=== PATIENT | female | born 1965 | race Caucasian/White ===

== ENCOUNTER 2021-09-10 11:00 | Outpatient (RCR) | payer OTHER, SELFPAY ==
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
--- NOTE | 2021-09-01 09:59 | PCPTNOTE ---
Patient called & cancelled scheduled appointment this date due to not feeling well.
--- NOTE | 2021-09-03 11:26 | PCPTNOTE ---
Patient called & cancelled scheduled appointment this date due to still being sick.
--- NOTE | 2021-09-08 09:56 | PCPTNOTE ---
Patient called & cancelled scheduled appointment this date due to having a flare-up with fibromyalgia.
--- NOTE | 2021-09-17 10:59 | PCPTNOTE ---
Patient did not show up for scheduled appointment this date; left voicemail for next appointment with stating if she needs to cancel or no shows she will be discharged.
--- NOTE | 2021-09-28 10:48 | PCPTNOTE ---
Attending Provider: Drew Chadwick, DIE CASTING MACHINE SETTER Patient:Irma Pantoja Date of :1965 PHYSICAL THERAPY DISCHARGE SUMMARY. Patient has no call no showed the last 2 appointments including today's progress report and has cancelled 3 appointments prior, therefore she will be discharged at this time. Called and left voicemail notifying patient of discharge, she will need a new order if therapy is to be continued. Patient?s initial visit was on 08/17/2021 12:30 and she had a total of 2 visits. Thank you for referring this patient to [facility]. Please review, sign, date and return this discharge summary NANCY. I have been updated about the patient's current status and I agree with discharge from the above service at this time. Referring Physician Date
== END 2021-09-29 11:15 | disposition home or self-care (01) ==
LOC: ANHHIPT 11:00
PROVIDERS: Visit Provider Nurse Practitioner
DX: M54.41 Lumbago with sciatica, right side (principal)
CPT/HCPCS: 97014; 97110; 97112; 97161; 99199; G0283

== ENCOUNTER 2023-10-14 06:58 | Outpatient (CLI) | payer OTHER, SELFPAY ==
--- NOTE | 2023-10-12 15:11 | PC.NURSE ---
Pre Radiology instructions Report to the outpatient emilio marcella on date _[id number]_ at time _0700_ for procedure Time: _0900_ YOU MAY BE MONITORED AT HOSPITAL FOR UP TO 4 HOURS AFTER YOUR PROCEDURE. A visitor will be allowed to accompany the patient into the hospital. You and your visitor will be asked to self-screen and do not enter if you have any COVID symptoms. A mask is OPTIONAL within the hospital. Patients are to have no food or drink 6 hours prior to procedure time Driving will be restricted after the procedure, you must have a person to drive you home. Labs will be drawn in preop area and once reviewed, you will be taken to radiology area for procedure. When the procedure is completed, you will be taken to outpatient where you will be monitored for several hours. You may have one visitor in this area. Other than holding anti-coagulants, patient may take other medication(s) as scheduled. Prior to your appointment date patients are instructed to hold anti-coagulants after discussing with ordering provider to stop. If unable to discontinue anti-coagulants please notify radiologist. ? No aspirin or warfarin (Coumadin) for 7 days prior to the procedure. ? No clopidogrel (Plavix), ticagrelor (Brilinta), prasugrel (Effient) or dabigatran (Pradaxa) for 5 days prior to the procedure. ? No rivaroxaban (Xarelto), apixaban (Eliquis), dipyridamole (Aggrenox or Persantine) or cilostazol (Pletal) for 2 days prior to the procedure. Medications to discontinue per physician: Date to take last dose: Please leave all valuables, including medications, at home the day of procedure. The hospital will not accept responsibility for valuables. Wear comfortable, loose fitting clothing.? Follow any additional instructions given to you from ordering provider. Telephone instructions given to __Terra___and asked if any additional questions and then verbalized understanding. Patient advised to call scheduling provider office or registration scheduling [phone] if any additional questions.
[2023-10-12 15:14] VITALS: BMI 33.3
[2023-10-14] VITALS (8 sets, daily range): BP systolic 108–138; BP diastolic 60–87; PULSE 60–71; RESP 14–20; TEMP 36.7; O2SAT 99–100
--- NOTE | ~2023-10-14 | XR_ITS ---
EXAMINATION: XR lumbar puncture diagnostic DATE: 10/14/2023 09:53 INDICATION: Anesthesia of skin. Suspicion for multiple sclerosis. TECHNIQUE: The procedure including the risks and benefits was discussed with the patient. Risks discu ssed included spinal headache, cerebrospinal fluid leak, bleeding, and infection. The patient underst ood the risks and agreed to proceed. A timeout was performed to verify the patient's name, date of , and procedure to be performed. The skin overlying the L4-L5 level was prepped and draped in usual sterile fashion. Subcutaneous 1% lidocaine was used for local anesthesia. A 22 gauge spinal n eedle was advanced under fluoroscopic guidance. The needle was removed and the entry site was cleaned and dressed. There were no immediate complications. A total of 1 fluoroscopic image(s) were obtaine d. The amount of fluoroscopy time used during this procedure was 0.2 minutes. Total DAP was 1.283 Gyc m^2 The patient was taken to the nursing area for observation. FINDINGS: Real-time fluoroscopy demonstrates the needle at the L4-L5 level. Opening pressure was 17 c m water. (Normal range is variably defined as 6-20 cm water and up to 25 cm water in obese patients. Pressure >25 cm water is one of the modified Dandy criteria for idiopathic intracranial hypertension) . 13 mL of clear, colorless fluid was collected in 4 tubes. IMPRESSION: 1. Successful fluoro-guided lumbar puncture. Reviewed, dictated and finalized at location A.
[2023-10-14 07:46] LABS: Mean Platelet Volume 9.8 fl (7.4-10.4); Platelet Count Result 284 k/mm3 (150-375)
[2023-10-14 07:57] LABS: Prothrombin Time 13.8 Seconds (11.1-14.7)
[2023-10-14 10:43] LABS: Glucose CSF 62 mg/dL (40-70); Total Protein CSF 44 mg/dL (12-60)
[2023-10-14 11:56] LABS: Appearance CSF Clear (Clear); CSF source CSF; Color CSF Colorless (Colorless); Nucleated Cell CSF 3 /uL (0-5); Red Blood Cell CSF 1 (0-2)
[2023-10-14 11:57] LABS: Lymphocytes CSF 80 % (40-80); Monocytes CSF 20 % (15-45)
[2023-11-08 08:35] LABS: Myelin Basic Protein, CSF <2.0
[2023-11-08 08:37] LABS: Oligoclonal Bands (IgG), CSF Absent
[2023-11-08 08:39] LABS: IgG Index, CSF 0.52
[2023-11-08 08:40] LABS: Albumin, CSF 15.8; IgG, CSF 2.9; Immunoglobulin G, Serum 1510
[2023-11-08 08:41] LABS: Albumin, Serum 4.3
[2023-11-08 08:42] LABS: Synthesis Rate IgG, CSF -3.9
[2023-11-08 08:44] LABS: CSFMOG Ab with Reflex to Titer Negative
== END 2023-10-14 11:40 | disposition home or self-care (01) ==
PROVIDERS: PCP Nurse Practitioner; Referring Provider Psychiatry & Neurology Neurology; Visit Provider Radiology Diagnostic Radiology
DX: R20.0 Anesthesia of skin (principal)
CPT/HCPCS: 36415; 62328; 82040; 82042; 82784; 82945; 83873; 83916; 84157; 85049; 85610; 86052; 86362; 87070; 89051

== ENCOUNTER 2024-03-28 16:06 | Outpatient (CLI) | payer OTHER, SELFPAY ==
--- NOTE | ~2024-03-28 | US_ITS ---
EXAMINATION: US thyroid DATE: 03/28/2024 16:56 INDICATION: Thyroid nodule. TECHNIQUE: Multiple ultrasound images of the thyroid were obtained. COMPARISON: None. FINDINGS: The right thyroid lobe measures 5.4 x 1.6 x 1.7 cm. The left thyroid lobe measures 4.9 x 2.5 x 2.5 c m. In the right thyroid lobe, there is a 5 mm solid, very hypoechoic, wider than tall nodule with sm ooth margin without echogenic foci (TI-RADS TR4). In the left thyroid lobe, there is a 3.8 cm solid, isoechoic, wider than tall nodule with smooth margin without echogenic foci (TR3). IMPRESSION: 1. Thyroid nodules. Ultrasound-guided fine-needle aspiration of the 3.8 cm left thyroid nodule is rec ommended. Reviewed, dictated and finalized at location A. LCHAIR VAN OPERATOR FIRST RESPONDER IMPRESSION: 1. Thyroid nodules. Ultrasound-guided fine-needle aspiration of the 3.8 cm left thyroid nodule is recommended.
--- OUTSIDE RECORDS SUMMARY | 2024-03-28 16:10 | XMS_ITS ---
Author Organization [facility] Address [address] [place] [address] Care Team Providers Care Nitro Man Name Role Phone Drew Chadwick Primary Care Provider Vicenta Oneill [phone] REASON FOR VISIT r/s from 12/06 Social History Sex Assigned At : Social History Observation Description Sex Assigned At Female Encounters Encounter Location Date Provider Diagnosis [address] [place] [address] 12/14/2023 Vicenta Oneill Plan Of Treatment No Information Progress Notes * Arpit PANTOJAB:1965 ( 58 yo F)Acc No.[id number]:12/14/2023 UNLOCKED PROGRESS NOTE Progress Notes Patient: Irma VALLEJO Provider: Khloe Oneill APRN :1965 A ge:58 Y S ex:Female Date:12/14/2023 Address:[address] [place], [place] [phone] Pcp:Drew Chadwick Subjective: * Chief Complaints: * 1 . R/s from 12/06. * Medical History: Objective: * Vitals: Assessment: Plan: * Treatment: * * Electronic signature of Merced Oneill [id number] on 03/28/2024 at 04:10 PM PROCESS SAFETY SPECIALIST Sign off status: Pending * Provider: Khloe Oneill APRN Date: 1 02/12/2023 Generated for Printi ng/Faxing/eTransmitting on: 0 03/28/2024 04:10 PM PROCESS SAFETY SPECIALIST
--- OUTSIDE RECORDS SUMMARY | 2024-03-28 16:11 | XMS_ITS | Clinical Summary ---
Author Organization [facility] Address [address] [place] [address] Care Team Providers Care Tail Worker Name Role Phone Daina Lehman APRN-FINANCIAL RESERVE CLERK Primary Care Provi bernardo Bimal Lind MD Unavailable [phone] Source Comments [facility] [employer],non-owned Affiliates and Associated Physician Practices is amultiple site organization consisting of ambulatory clinics and hospital sitesin [place], [place], [place] and [place]. This disclosure is being madepursuant to the Care Everywhere program and may not contain all information available regarding this patient. Last updated 17.[facility] Allergies Active Allergy Reactions Criticality Noted Date Comments Molds & Smuts Rhinitis,Other Medium 02/08/2018 Medications * Be aware that medications may not be up to date on this document. Alwaysverify current medications with the patient. Medication Sig Dispensed Refills Start Date End Date Status folic acid (FOLVITE) 1 MG tablet Take 1 mg by mouth once daily 11/18/2019 Active traMADol (ULTRAM) 50 MG tablet Take 50-100 mg by mouth every 6 hours as needed 11/14/2019 Active meloxicam (MOBIC) 15 MG tabletIndications:Art hralgia, unspecified joint Take 1 (one) tablet by mouth once daily 30 tablet 2 02/20/2020 Active gabapentin (NEURONTIN) 400 MG capsule Take 800 mg by mouth 4 times daily Active furosemide (LASIX) 20 MG tablet Take 20 mg by mouth once daily Active dapsone (ACZONE) 5 % gelIndications:Acne vulgaris Apply to entire affected face daily 60 g 3 04/15/2021 Active tretinoin (RETIN-A) 0.025 % creamIndications:Acne vulgaris Pea sized amount to entire face at night. 30 days supply. 45 g 3 04/15/2021 Active mupirocin (BACTROBAN) 2 % ointmentIndications:S taphylococcal infection Apply to affected area on nose daily 30 g 04/15/2021 Active spironolactone (ALDACTONE) 100 MG tabletIndications:Acn e vulgaris Take 1 (one) tablet by mouth once daily 30 tablet 1 04/15/2021 Active Active Problems Problem Noted Date Diagnosed Date Acne vulgaris 04/15/2021 Staphylococcal infection 04/15/2021 High risk medications (not anticoagulants) long- term use 04/15/2021 Dizziness and giddiness 12/31/2012 Immunizations Name Administration Dates Next Due INFLUENZA VACCINE 12/18/2020 Family History Medical History Relation Name Comments Cancer - Other Father Hodgkin's lymphoma Mother Relation Name Status Comments Brother Alive Father Mother Alive Sister 1 Alive Sister 2 Sister Other Hidradenitis kwon ppurativa Social History Tobacco Use Types Packs/Day Years Used Date Smoking Tobacco: Every Day Cigarettes 1 30 Smokeless Tobacco: Never Alcohol Use Standard Drinks/Week Comments Not Currently 0 (1 standard drink = 0.6 oz pur e alcohol) Occasionally Sex and Gender Information Value Date Recorded Sex Assigned at Not on file Gender Identity Not on file Sexual Orientation Not on file Last Filed Vital Signs Vital Sign Reading Time Taken Comments Blood Pressure 108/78 12/25/2019 8:34 AM ASSOCIATE PROFESSOR OF PHYSICS Pulse 80 12/25/2019 8:34 AM ASSOCIATE PROFESSOR OF PHYSICS Temperature 37.2 C (99 F) 12/25/2019 8:34 AM ASSOCIATE PROFESSOR OF PHYSICS Respiratory Rate 22 12/31/2012 1:01 PM ASSOCIATE PROFESSOR OF PHYSICS Oxygen Saturation 100% 04/18/2019 12:57 PM CDT Inhaled Oxygen Concentration - - Weight 106.1 kg (234 lb) 12/25/2019 8:34 AM ASSOCIATE PROFESSOR OF PHYSICS Height 165.1 cm (5' 5 ) 12/25/2019 8:34 AM ASSOCIATE PROFESSOR OF PHYSICS Body Mass Index 38.94 12/25/2019 8:34 AM ASSOCIATE PROFESSOR OF PHYSICS Plan of Treatment Health Maintenance Due Date Last Done Comments COLOGUARD (AGES 45-75) - COL ON CA SCREENING 1965 COLON MONITORING 1965 COLONOSCOPY - COLON CA SCREENING 1967 CT COLONOGRAPHY - COLON CA SCREENING 1965 Colorectal Cancer Screening 1965 FIT - COLON CA SCREENING 1965 FLEX SIG - COLON CA SCREENING 1965 LIPID TESTING 1965 MAMMOGRAM 1965 HIV SCREENING 10/05/1982 HEPATITIS C SCREENING 10/01/1985 DTAP/TDAP/TD VACCINES (1 - Tdap) 10/05/1986 HEPATITIS B VACCINE (1 of 3 - 19+ 3-dose series) 10/05/1986 PNEUMOCOCCAL VACCINE 50+ (1 of 2 - PCV) 10/05/1986 PNEUMOCOCCAL VACCINE (1 of 2 - PCV) 10/05/1986 ZOSTER VACCINE (1 of 2) 10/05/2017 COVID-19 VACCINE (1 - 2023-2 5 season) 2023 INFLUENZA VACCINE (#1) 2023 12/18/2020 DEPRESSION SCREENING 02/08/2024 PAP SMEAR 11/20/2024 11/20/2021, 11/20/2021, 11/20/2021 HIB VACCINE Aged Out No longer eligi ble based on patient's age to complete this topic HPV VACCINE Aged Out No longer eligi ble based on patient's age to complete this topic MENINGOCOCCAL (Group B) VACCINE Aged Out No longer eligible b ased on patient's age to complete this topic MENINGOCOCCAL VACCINE Aged Out No yolanda liil eligible based on patient's age to complete this topic Care Teams Tail Worker Relationship Specialty Start Date End Date Daina Lehman APRN-FINANCIAL RESERVE CLERK PCP - General 04/18/19 Bimal Lind MD Internal Medicine 04/18/19
--- OUTSIDE RECORDS SUMMARY | 2024-03-28 16:11 | XMS_ITS | Clinical Summary ---
Author Organization [facility] Address [address] [place] [address] Care Team Providers Care Almond Blancher Hand Name Role Phone Unavailable Primary Care Provider Unavailabl e Allergies Active Allergy Reactions Criticality Noted Date Comments Molds & Smuts Sneezing Medium 02/08/2018 Medications predniSONE 10 mg tabletIndication s:Arthralgia of both knees,Myalgia,Po lyarthralgia 4 tablets x 4 days; 3 tab x 3 days; 2 tab x 2 days; 1 tab x 1 day 30 tablet 11/14/2019 Active traMADol 50 MG tabletIndication s:Chronic Pain Take 1-2 tablets (50-100 mg total) by mouth every 6 (six) hours as needed for Pain. Indications: Chronic Pain 45 tablet 11/14/2019 Active cyclobenzaprine 10 MG tabletIndication s:Chronic neck and back pain Take 1 tablet (10 mg total) by mouth 3 (three) times daily as needed. 270 tablet 1 11/18/2019 Active folic acid 1 MG tabletIndication s:Folic acid deficiency Take 1 tablet (1 mg total) by mouth daily. 30 tablet 4 11/18/2019 Active famotidine 20 MG tabletIndication s:Gastroesophage al reflux disease with esophagitis without hemorrhage Take 1 tablet (20 mg total) by mouth 2 (two) times daily. 180 tablet 1 11/18/2019 Active citalopram 20 MG tabletIndication s:Hot flash, menopausal Take 1.5 tablets (30 mg total) by mouth daily. 135 tablet 1 11/18/2019 Active ferrous sulfate EC 324 (65 Fe) MG tabletIndication s:Iron deficiency anemia, unspecified iron deficiency anemia type Take 1 tablet (324 mg total) by mouth daily with breakfast. 30 tablet 4 11/18/2019 Active Active Problems Problem Noted Date Diagnosed Date Lymphedema of both lower extremities 08/17/2018 Assessment & Plan (08/17/2018 8:51 AM CDT): See dependent edema, above. Referral for lymphedema therapy through occupational therapy. Folic acid deficiency 08/17/2018 Assessment & Plan (08/17/2018 8:50 AM CDT): Chronic deficiency, renew folic acid today. Generalized osteoarthritis of multiple sites 12/2018 Assessment & Plan (08/17/2018 8:49 AM CDT): Continue meloxicam for treatment, monitor for response. Dependent edema 07/14/2018 Assessment & Plan (08/17/2018 8:51 AM CDT): Uncertain etiology, may be related to underlying autoimmune disease. Obtain basic metabolic panel for ongoing diuretic use and increased dosing. Check echocardiogram to rule out significant diastolic heart failure. Encouraged use of compression stockings for symptom control. Positive GREGORIA (antinuclear antibody) 06/06/2018 Clubbing of fingers 04/24/2018 Assessment & Plan (04/24/2018 7:08 PM CDT): Patient with heavy chronic nicotine use. Denies any respiratory issues at this time. Consider possible referral to pulmonology, CT scan of the chest at follow-up. Gastroesophageal reflux disease 02/11/2018 Assessment & Plan (08/17/2018 8:46 AM CDT): Reasonable control of symptoms on current dosing of ranitidine. No change to treatment. Assessment & Plan (04/24/2018 7:06 PM CDT): Patient reports stability on her current dosing of ranitidine, without any breakthrough symptoms. No change to present treatment. Left knee pain 08/05/2017 Swelling of joint, knee, left 08/05/2017 BMI 32.0-32.9,adult 08/01/2017 Medication management 08/01/2017 Assessment & Plan (04/24/2018 7:09 PM CDT): Routine lab work obtained nearly 3 months ago. No indications for additional labs other than those noted above. Polyarthralgia 05/20/2017 Overview (02/08/2018): Transitioned From: Arthritis Assessment & Plan (08/17/2018 8:45 AM CDT): Positive GREGORIA, rheumatology referral pending. Assessment & Plan (04/24/2018 7:06 PM CDT): Migratory arthralgias, with possibility of autoimmune disease. Will obtain radiographs of the elbow specifically, she is tender presently in that area. It is symmetric, possibly synovial in nature. Recheck TSH, with reflex, CMP, hepatitis titers, sedimentation rate and C-reactive protein for additional evaluation. If these are negative, consider referral to rheumatology for additional evaluation. Certainly differential diagnosis includes fibromyalgia. Bilateral hand pain 04/19/2017 Lamin's nodes 04/19/2017 Chronic neck and back pain 04/19/2017 Assessment & Plan (08/17/2018 8:45 AM CDT): Stable, in need of medication renewal. Continue current treatment. Assessment & Plan (04/24/2018 7:04 PM CDT): Patient reports worsening symptoms, particularly to the back. She is currently on 900 mg of gabapentin 3 times daily, as well as meloxicam and cyclobenzaprine. Both of these are half maximal doses. I have offered to increase her doses for both these if she gets improved relief. Consider possibility for referral to physical therapy for additional management options. Handout provided for sacroiliitis as well. Enthesopathy of multiple sites 04/19/2017 Assessment & Plan (04/24/2018 7:07 PM CDT): See polyarthralgia, above. Nicotine dependence 04/19/2017 Restless legs syndrome 04/19/2017 Spina bifida ([facility]) 04/19/2017 Resolved Problems Problem Noted Date Diagnosed Date Resolved Date Wears glasses 04/19/2017 10/19/2019 Family History Medical History Relation Comments Cancer Father bone cancer Cancer Mother non Hodgkins Lym phoma Thyroid Mother Cancer Paternal Grandfather skin cancer Relation Status Comments Father Mother Alive Paternal Grandfather Social History Tobacco Use Types Packs/Day Years Used Date Smoking Tobacco: Every Day Cigarettes Smokeless Tobacco: Never Tobacco Cessation:Ready to Q uit: Yes Alcohol Use Standard Drinks/Week Comments No 0 (1 standard drink = 0.6 oz pur e alcohol) AUDIT-C Answer Date Recorded Frequency of Alcohol Consumption Never 02/08/2018 Average Number of Drinks Not on file 019 Frequency of Binge Drinking Not on file 03/2018 PHQ-2 Answer Date Recorded PHQ-2 Score 6 01/16/2019 Education Answer Date Recorded What is the highest level of school you have completed or the highest degree you have received? Associate degree: academic program 02/08/2018 Comments No Sex and Gender Information Value Date Recorded Sex Assigned at Female 12/27/2018 1:33 PM COTTON WEIGHER Legal Sex Female 9:23 PM CDT Gender Identity Female 12/27/2018 1:33 PM COTTON WEIGHER Sexual Orientation Straight 12/27/2018 1: 33 PM COTTON WEIGHER Occupation Industry Job Start Date Job End Date Not on file Not on file Not on file Not on file Last Filed Vital Signs Vital Sign Reading Time Taken Comments Blood Pressure 98/60 11/14/2019 12:42 PM CDT Pulse 85 11/14/2019 12:42 PM CDT Temperature 36.4 C (97.5 F) 11/14/2019 12:42 PM CDT Respiratory Rate 20 11/14/2019 12:4 2 PM CDT Oxygen Saturation 97% 11/14/2019 12: 42 PM CDT Inhaled Oxygen Concentration - - Weight 108.2 kg (238 lb 9.6 oz) 020 12:42 PM CDT Height 167.6 cm (5' 6 ) 11/14/2019 12:4 2 PM CDT Body Mass Index 38.51 11/14/2019 12:42 PM CDT Plan of Treatment Health Maintenance Due Date Last Done Comments Cervical Cancer Screening Pa p Smear (Age 30 to 64) Every 3 Years 1967 Colorectal Cancer Screening Colonoscopy (10 Years) 1967 Annual Physical 10/05/1970 Pneumococcal Vaccine: Pediatrics (0 to 5 Years) and At-Risk Patients (6 to 64 Years) (1 of 2 - PCV) 10/05/1973 DTaP, Tdap and Td Vaccines ( 1 - Tdap) 10/05/1986 Hepatitis B Vaccines (1 of 3 - 19+ 3-dose series) 10/05/1986 Cervical Cancer Screening Pa p with HPV Testing (Age 30 to 64) Every 5 Years 10/05/1997 Cervical Cancer Screening wi th HPV 10/05/1997 Zoster Vaccines (1 of 2) 10/05/2017 Mammogram Screening 12/07/2020 12/07/2018, 03/14/2018, 03/14/2018 COVID-19 Vaccine (1 - 2023-2 5 season) 2023 Influenza Adult (#1) 2023 Hepatitis C Completed 04/24/2018, 04/24/2018 Meningococcal B Vaccine Aged Out No l onger eligible based on patient's age to complete this topic Meningococcal Vaccine Aged Out No yolanda lili eligible based on patient's age to complete this topic RSV Immunizations Under 20 Months Aged Out No longer eligible b ased on patient's age to complete this topic Procedures Procedure Name Priority Date/Time Associated Diagnosis Comments MG DIAG W BRAYDEN BILAT DIGI Routine 12/07/2018 2:10 PM CDT Abnormal ultrasound of breast HEPATITIS A,B,& C Routine 04/24/2018 3:1 9 PM CDT from Last 3 Months or Most Recently Relevant to Health Maintenance Results * MG DIAG W BRAYDEN BILAT DIGI (12/07/2018 2:10 PM CDT) Anatomical Region Laterality Modality Breast Bilateral Mammography, Rad iographic Imaging 12/07/2018 3:21 PM CDT Impressions 12/07/2018 6:32 PM CDT IMPRESSION: 1. Probably benign findings in both breasts. Recommend bilateral diagnostic mammogram and ultrasound for continued surveillance in 6 months. I discussed the findings and recommendations with the patient following the sonogram. 2. BI-RADS Category 3 - probably benign findings, but short interval follow-up is recommended. Recommend 6 month follow up. 3. TISSUE TYPE: Category B - There are areas of scattered fibroglandular density. MQSA BI-RADS Categories: Category 0 - needs additional imaging evaluation. Category 1 - negative. Category 2 - benign findings. Category 3 - probably benign findings, but short interval follow-up is recommended. Category 4 - suspicious abnormality and biopsy should be considered though the lesion may well be benign. Category 5 - highly suggestive of malignancy and appropriate action should be taken. A) A negative report should not delay a biopsy if a dominant or clinically suspicious mass is present. B) Adenosis and dense breasts may obscure an underlying neoplasm. C) Study interpreted with computer aided detection. Interpreted By: Isiah Nathan, 12/07/2018 3:21 PM Narrative 12/07/2018 6:32 PM CDT IMAGING STUDIES: MG POSADATani W BRAYDEN FERRERA DIGI DATE: 12/07/2018 1:32 PM HISTORY: 6 month follow up abnormal mammogram and ultrasound from 03/14/18 53-year-old female returns for recommended bilateral diagnostic mammogram and ultrasound for continued surveillance. COMPARISON STUDIES: Baseline screening mammogram on 03/14/2018 with subsequent diagnostic bilateral breast ultrasound on 03/17/2018. DISCUSSION: Digital diagnostic bilateral mammogram with CAD. Bilateral CC, MLO, and ML views. 2-D imaging and 3-D tomography. Scattered fibroglandular tissue bilaterally. The right breast central density approximately 6 cm from the nipple on the CC view is less conspicuous on the current study. The right breast upper outer quadrant ovoid focal asymmetry on the MLO view is also less conspicuous and there is no discrete mass evident on the tomographic images. The asymmetric density in the left breast just lateral to the nipple line on 03/14/2018 study CC tomographic image 28 of 69 is approximately half the volume on current CC tomographic image 31 of 73. The asymmetric density in the lower medial left breast as depicted on screening study CC tomographic image 10 of 69 is not clearly identified on the current study and is either fibroglandular superimposition or has resolved in the interval. Bilateral breast ultrasound performed in conjunction with this study. No significant change in the sonographically identified probable complex cysts other than interval resolution of the smallest cyst in the left breast since 03/17/2018. us Jude Higgins MD MAMMO Final Res ult * HEPATITIS A,B,& C (04/24/2018 3:19 PM CDT) HEPATITIS B SURFACE AG NON-REACTI VE NON-REACTI VE 04/25/2018 12:51 AM CDT [facility] HEP B CORE TOTAL AB NON-REACTI VE NON-REACTI VE 04/25/2018 12:51 AM CDT [facility] HEP B SURFACE AB NON-REACTI VE 04/25/2018 7:24 AM CDT [facility] HAV IGM NON-REACTI VE NON-REACTI VE 04/25/2018 12:51 AM CDT [facility] HEPATITIS C AB NON-REACTI VE NON-REACTI VE 04/25/2018 12:51 AM CDT [facility] 04/24/2018 3:19 PM CDT 04/24/2018 6:14 PM CDT us Generic Conversion Md [facility] Final R esult [facility] [address] [place] [address], from Last 3 Months or Most Recently Relevant to Health Maintenance Insurance Member Subscriber Plan / Payer (Ef fective 2018-Present) Name:Irma Pantoja Relation to Subscriber:Self Name:Irma Pantoja Payer ID:[id number] (NAIC) Group ID:Not on file Type:Not on file Address: [address] [address] [place] Member Subscriber Plan / Payer (Ef fective 2018-Present) Name:Kit Luis Asirisha Mracos Relation to Subscriber:Self Name:Luis A Pantojasirisha Marcos Payer ID:[id number] (NAIC) Group ID:Not on file Type:Not on file Address: [address] [address]
--- OUTSIDE RECORDS SUMMARY | 2024-03-28 16:11 | XMS_ITS | Encounter Summary ---
Author Organization [facility] Address [address] [place] [id number] Care Team Providers Care V Belt Skiver Name Role Phone Jude Higgins MD Primary Care Provider [phone] Daina Lehman NP Primary Care Provider Unav ailable Encounter Details Date Type Department Care Team (Late st Contact Info) Description 05/18/2017 Abstract [facility] CONVERSION [address] [place] [address] , Generic Conversion, Social History Tobacco Use Types Packs/Day Years Used Date Smoking Tobacco: Never Assessed Comments Unknown Sex and Gender Information Value Date Recorded Sex Assigned at Female 12/27/2018 1:33 PM CASSANDRA DEVELOPER Legal Sex Female 9:23 PM CDT Gender Identity Female 12/27/2018 1:33 PM CASSANDRA DEVELOPER Sexual Orientation Straight 12/27/2018 1: 33 PM CASSANDRA DEVELOPER documented as of this encounter Plan of Treatment Not on file documented as of this encounter Visit Diagnoses Not on filedocumented in this encounter Care Teams V Belt Skiver Relationship Specialty Start Date End Date Jude Higgins MD PCP - General INTERNAL MEDICINE 02/08/18 11/13/19 Daina Lehman NP PCP - General NURSE PRACTITIONER 11/14/19 03/08/21 documented as of this encounter
--- OUTSIDE RECORDS SUMMARY | 2024-03-28 16:11 | XMS_ITS | Data Portability ---
Author Organization [facility] [place] Address [address] [place] [address] Care Team Providers Care Dredgemaster Name Role Phone BRUNILDA EDWARDS Primary Care Provider [phone] Assessment Encounter Date Assessment Date Assessment LastModified by Organization Details LastModified Time 10/09/2021 10/09/2021 Send T-therapy to [facility] night[facility] with 4wks med check [email or web address] Not available 10/09/2021 13:01:01 11/20/2021 11/20/2021 Annual gynecological exam performed. Patient will come back in a year unless there are new symptoms. Not available 11/20/2021 15:21:47 06/21/2023 06/21/2023 Annual gynecological exam performed. Patient will come back in a year unless there are new symptoms. [email or web address] Not available 06/21/2023 15:25:10 Plan of Treatment Reminders Order Date Submit Date Provider Last Modified By Organization Details Last Modified Time Details Appointments None recorded. Lab testosteron e, total, serum 2021 [facility] (Lab), [address], [place], [address], 07:33:56 vitamin D, 25-hydroxy, total, serum 2021 [facility] (Lab), [address] , [place], [address], 07:33:57 hormone panel, serum or plasma 2021 [facility] (Lab), [address], [place], [address], 2 07:33:57 CBC w/ auto diff 2021 022 [facility] (Lab), [address], [place], [address], 2 07:33:55 CMP, serum or plasma 2021 022 [facility] (Lab), [address], [place], [address], 07:33:56 Referral None recorded. Procedures None recorded. Surgeries None recorded. Imaging MAMMO, screening, bilateral [email or web address] [place] [address] (Central Scheduling), [address] [place], [address], 4 10:24:09 Medication Orders estradiol 1 mg tablet 2023 024 [email or web address] 1 [facility]armacy #[id number], [address] [place], [address], 4 19:56:55 progesteron e micronized 100 mg capsule 2023 024 [facility]/Pharmacy #[id number], [address] [place], [address], 4 14:58:20 estradiol 1 mg tablet 2023 024 [facility] #[id number], [address] [place], [address], 4 15:44:06 Prometrium 100 mg capsule 2023 024 [facility]/Ph[facility] #[id number], [address] [place], [address], 4 15:44:06 Prometrium 100 mg capsule 2021 022 [facility]/Pharmacy #[id number], [address] [place], [address], 15:48:49 Patient TargetsNo targets recorded. Patient InstructionsNo instructions recorded. Reason for Referral None Reported. Results Created Date Observation Date Name Description Value Unit Range Abnormal Flag Note LastModifiedBy Organization Detail LastModifiedTime 10/10/19 22 10/09/2021 CBC W/DIF F WBC 11.5 10'3/ uL 3.6-10 .2 high Not Available [facility] [address] [place], [address], 10/10/2021 07:33:55 10/10/19 22 10/09/2021 CBC W/DIF F RBC 4.77 10'6/ uL (based on docume nted legal sex) 4.10-5 .30 Not Available [facility] [address] [place], [address], 10/10/2021 07:33:55 10/10/19 22 10/09/2021 CBC W/DIF F HGB 12.5 g/dL (based on docume nted legal sex) 11.9-1 5.8 Not Available [facility] [address] [place], [address], 10/10/2021 07:33:55 10/10/19 22 10/09/2021 CBC W/DIF F HCT 42.2 % (based on docume nted legal sex) 37.4-4 8.3 Not Available [facility] [address] [place], [address], 10/10/2021 07:33:55 10/10/19 22 10/09/2021 CBC W/DIF F MCV 88.5 fL 82.0-9 9.0 Not Available [facility] [address] [place], [place] [address], [place], [address], 10/10/2021 07:33:55 10/10/19 22 10/09/2021 CBC W/DIF F MCH 26.2 pg 27.0-3 3.0 low Not Available [facility] [place], [address], 10/10/2021 07:33:55 10/10/19 22 10/09/2021 CBC W/DIF F MCHC 29.6 g/dL 32.0-3 6.0 low Not Available [facility] [place], [address], 10/10/2021 07:33:55 10/10/19 22 10/09/2021 CBC W/DIF F RDW 15.9 % 11.0-1 5.0 high Not Available [facility] [place], [address], 10/10/2021 07:33:55 10/10/19 22 10/09/2021 CBC W/DIF F plt 287 10'3/ uL 150-45 0 Not Available [facility] [place], [address], 10/10/2021 07:33:55 10/10/19 22 10/09/2021 CBC W/DIF F MPV 11.9 fL 9.8-12 .7 Not Available [facility] [place], [address], 10/10/2021 07:33:55 10/10/19 22 10/09/2021 CBC W/DIF F NRBC's 0.0 % 0 Not Available [facility] [place], [address], 10/10/2021 07:33:55 10/10/19 22 10/09/2021 CBC W/DIF F absolute NRBCs 0.0 10'3/ uL 0 Not Available [facility] [address] [place], [place] [address], [place], [address], 10/10/2021 07:33:55 10/10/19 22 10/09/2021 CBC W/DIF F neutrophils 59.2 % 37.0-7 2.0 Not Available [facility] [address] [place], [place] [address], [place], [address], 10/10/2021 07:33:55 10/10/19 22 10/09/2021 CBC W/DIF F lymphocytes 29.9 % 16.0-4 8.0 Not Available [facility] [address] [place] [address], [address], 10/10/2021 07:33:55 10/10/19 22 10/09/2021 CBC W/DIF F monocytes 8.3 % 4.0-14 .0 Not Available [facility] [address] [place] [address], [address], 10/10/2021 07:33:55 10/10/19 22 10/09/2021 CBC W/DIF F eosinophils 1.2 % 0.0-9. 0 Not Available [facility] [address] [place] [address], [address], 10/10/2021 07:33:55 10/10/19 22 10/09/2021 CBC W/DIF F basophils 0.8 % 0.0-2. 0 Not Available [facility] [address] [place], [place] [address], [place], [address], 10/10/2021 07:33:55 10/10/19 22 10/09/2021 CBC W/DIF F immature granulocytes 0.6 % no define d refere nce range Not Available [facility] [address] [place], [place] [address], [address], 10/10/2021 07:33:55 10/10/19 22 10/09/2021 CBC W/DIF F absolute neutrophils 6.8 10'3/ uL 1.1-6. 0 high Not Available [facility] [place], [address], 10/10/2021 07:33:55 10/10/19 22 10/09/2021 CBC W/DIF F absolute lymphocytes 3.4 10'3/ uL 0.7-3. 4 Not Available [facility] [place], [address], 10/10/2021 07:33:55 10/10/19 22 10/09/2021 CBC W/DIF F absolute monocytes 1.0 10'3/ uL 0.3-1. 0 Not Available [facility] [address] [place], [place] [address], [place], [address], 10/10/2021 07:33:55 10/10/19 22 10/09/2021 CBC W/DIF F absolute eosinophils 0.1 10'3/ uL 0.0-0. 6 Not Available [facility] [address] [place], [place] [address], [place], [address], 10/10/2021 07:33:55 10/10/19 22 10/09/2021 CBC W/DIF F absolute basophils 0.1 10'3/ uL 0.0-0. 1 Not Available [facility] [place], [address], 10/10/2021 07:33:55 10/10/19 22 10/09/2021 CBC W/DIF F absolute immature granulocytes 0.1 10'3/ uL 0.00-0 .10 022 5:35 AM: P indic ates parti al resul ts on a panel have been relea sed. Addit ional resul ts will ana cristina w. 022 5:35 AM: This resul t has been final verif ied. No addit ional or samaniego ed resul ts are expec luis alfredo. Not Available [facility] [address] [place] [address], [address], 10/10/2021 07:33:55 10/10/19 22 10/09/2021 CMP WITH BUN/C REAT RATIO sodium 141 mmol/ L 133-14 6 Not Available [facility] [address] [place] [address], [address], 10/10/2021 07:33:56 10/10/19 22 10/09/2021 CMP WITH BUN/C REAT RATIO potassium 4.5 mmol/ L 3.5-5. 1 Not Available [facility] [address] [place] [address], [address], 10/10/2021 07:33:56 10/10/19 22 10/09/2021 CMP WITH BUN/C REAT RATIO chloride 102 mmol/ L 98-107 Not Available [facility] [address] [place] [address], [address], 10/10/2021 07:33:56 10/10/19 22 10/09/2021 CMP WITH BUN/C REAT RATIO carbon dioxide 29 mmol/ L 21-31 Not Available [facility] [address] [place] [address], [address], 10/10/2021 07:33:56 10/10/19 22 10/09/2021 CMP WITH BUN/C REAT RATIO anion gap 10 mmol/ L 4-13 Not Available [facility] [address] [place] [address], [address], 10/10/2021 07:33:56 10/10/19 22 10/09/2021 CMP WITH BUN/C REAT RATIO blood urea nitrogen 8 mg/dL 7-25 Not Available [facility] [place], [address], 10/10/2021 07:33:56 10/10/19 22 10/09/2021 CMP WITH BUN/C REAT RATIO creatinine 0.86 mg/dL 0.60-1 .30 Not Available [facility] [place], [address], 10/10/2021 07:33:56 10/10/19 22 10/09/2021 CMP WITH BUN/C REAT RATIO egfrcr (CKD-epi 2020) 80 mL/mi n/1.7 3_m2 >=60 Not Available [facility] [place], [address], 10/10/2021 07:33:56 10/10/19 22 10/09/2021 CMP WITH BUN/C REAT RATIO BUN/creatini ne ratio 9.3 . 10.0-2 2.0 low Not Available [facility] [place], [address], 10/10/2021 07:33:56 10/10/19 22 10/09/2021 CMP WITH BUN/C REAT RATIO calcium 9.1 mg/dL 8.3-10 .5 Not Available [facility] [place], [address], 10/10/2021 07:33:56 10/10/19 22 10/09/2021 CMP WITH BUN/C REAT RATIO glucose 76 mg/dL 70-100 Not Available [facility] [place], [address], 10/10/2021 07:33:56 10/10/19 22 10/09/2021 CMP WITH BUN/C REAT RATIO protein, total 6.9 g/dL 6.4-8. 3 Not Available [facility] [address] [place], [place] [address], [place], [address], 10/10/2021 07:33:56 10/10/19 22 10/09/2021 CMP WITH BUN/C REAT RATIO albumin 3.6 g/dL 3.5-5. 0 Not Available [facility] [address] [place], [place] [address], [place], [address], 10/10/2021 07:33:56 10/10/19 22 10/09/2021 CMP WITH BUN/C REAT RATIO ALT 8 units /L 9-43 low Not Available [facility] [address] [place] [address], [address], 10/10/2021 07:33:56 10/10/19 22 10/09/2021 CMP WITH BUN/C REAT RATIO alkaline phosphatase 104 units /L 34-104 Not Available [facility] [address] [place] [address], [address], 10/10/2021 07:33:56 10/10/19 22 10/09/2021 CMP WITH BUN/C REAT RATIO AST 16 units /L 13-39 Not Available [facility] [address] [place] [address], [address], 10/10/2021 07:33:56 10/10/19 22 10/09/2021 CMP WITH BUN/C REAT RATIO bilirubin, total 0.3 mg/dL 0.2-1. 2 Not Available [facility] [address] [place], [place] [address], [place], [address], 10/10/2021 07:33:56 10/10/19 22 10/09/2021 TESTO STERO NE, TOTAL testosterone , total 92 NG/dL 0-100 Not Available [facility] Disease [address] [place] [address], [address], 10/10/2021 07:33:56 10/10/19 22 10/09/2021 FSH, LH, ESTRA DIOL estradiol 10.4 pg/mL This assay was perfo rmed using [employer] n reage nts and test kits. Value s obtai pierre with other assay metho ds or kits canno t be used inter [facility] . Femal e Estra diol Range s: Folli cular phase 12.4- 233 pg/mL Ovula tion phase 41.0- 398 pg/mL Lutea l phase 22.3- 341 pg/mL Postm enopa usal< 5-138 pg/mL Healt hy Pregn ant Women 1st Trime ster1 54-32 43 pg/mL 2nd Trime ster1 561-2 1280 pg/mL 3rd Trime ster8 525-> 53596 pg/mL Not Available [facility] Disease [address] [place] [address], [address], 10/10/2021 07:33:57 10/10/19 22 10/09/2021 FSH, LH, ESTRA DIOL FSH 51.7 mIU/m L This assay was perfo rmed using [employer] reage nts and test kits. Value s obtai pierre with other assay metho ds or kits canno t be used inter [facility] . Femal es Folli cular : 3.5-1 2.5 mIU/m L Ovula tion: 4.7-2 1.5 mIU/m L Lutea l: 1.7-7 .7 mIU/m L Postm enopa use: 25.8- 134.8 mIU/m L Not Available [facility] [address] [place] [address], [address], 10/10/2021 07:33:57 10/10/19 22 10/09/2021 FSH, LH, ESTRA DIOL LH 33.5 mIU/m L This assay was perfo rmed using [employer] reage nts and test kits. Value s obtai pierre with other assay metho ds or kits canno t be used inter [facility] . Femal es Mid-F ollic ular: 2.4-1 2.6 mIU/m L Mid-C ycle: 14.0- 95.6 mIU/m L Mid-L uteal : 1.0-1 1.4 mIU/m L Postm enopa use: 7.7-5 8.5 mIU/m L Not Available [facility] [address] [place], [address], 10/10/2021 07:33:57 10/10/19 22 10/09/2021 VITAM IN D, 25-OH (TOTA L D2/D3 ) vitamin D, 25-hydroxy, total 9.5 NG/mL 30.0-1 00.0 low [place] of Defic iency : <20 ng/mL [place] stive of Insuf ficie ncy: 20-29 ng/mL [place] stive of Suffi cienc y: 30-10 0 ng/mL Sugge stive of Toxic ity: >150 ng/mL Not Available [facility] [address] [place], [address], 10/10/2021 07:33:57 11/21/19 22 11/20/2021 IMAGE GUIDE D PAP AND HPV REGAR DLESS image guided Pap, HPV regardless of Pap result SEE RESULT S BELOW CASE REPOR T: Cytol ogy Gynec ologi minor Repor t Case: [id number] Autho marce caceres Provi bernardo: Genaro Goldstein Colle 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 Elect denise buenrostro d by Radhika Shafer ica on 11/26 at 9:53 AM ----- ----- ----- ----- ----- ----- ----- ----- ----- ----- ----- ----- ----- ----- ----- ----- ----- ---- HPV RESUL TS: HPV mRNA E6/E7 : No HPV mRNA Detec luis alfredo NOTE: This high risk HPV mRNA assay detec ts fourt een high- risk HPV types (16, 18, 31, 33, 35, 39, 45, 51, 52, 56, 58, 59, 66, 68) witho ut diffe renti ation . COMME NT: Note: This speci men was revie wed by a Cytot echno logis t and/o r Patho logis t (as indic ated in this repor t) after evalu ation using the Thinp rep Imagi ng Syste m. CLINI MINOR INFOR MATIO N: Menst rual Statu s: LMP (if appli cable ): Clini minor Histo ry/Pr eviou s Pap: Type of Neopl harjeet (if appli cable ): Signi fican t Clini minor Findi ngs: Other Histo ry: Hormo cory (if appli cable ): PAP EDUCA PHUC L NOTE: The Pap Test is a scree lisa test with an inher ent false negat lluvia rate. Liqui d-bas ed sampl ing may decre ase, but will not elimi johnson, false negat lluvia resul ts. A negat lluvia resul t does not precl ude the prese nce and/o r devel opmen t of disea se, since the prese nce of abnor mal cells in the sampl e depen ds on the locat ion of the lesio n and sampl ing techn ique. Ashlee nued regul ar scree lisa is the best metho d of cance r preve ntion . If repor luis alfredo cytol ogic findi ng do not corre late with physi minor and/o r histo rical findi ngs, wilmar arenas tigat ion is recom davon d, as clini evan nguyen nted. Not Available [facility] [address] [place] [address], [address], 11/26/2021 10:56:00 11/21/19 22 11/20/2021 TRICH OMONA S VAGIN ORIANA (RRNA ) trichomonas vaginalis ribosomal RNA (rrna) NEGATI VE negati ve Not Available [facility] [address] [place] [address], [address], 11/26/2021 10:56:01 11/21/19 22 11/20/2021 CT/GC (ELVIS) , THINP REP VIAL chlamydia trachomatis, PCR NEGATI VE negati ve Not Available [facility] [address] [place] [address], [address], 11/26/2021 10:56:01 11/21/19 22 11/20/2021 CT/GC (ELVIS) , THINP REP VIAL neisseria gonorrhoeae, PCR NEGATI VE negati ve Not Available [facility] [address] [place] [address], [address], 11/26/2021 10:56:01 06/21/19 24 06/21/2023 IMAGE GUIDE D PAP AND HPV REGAR DLESS image guided Pap, HPV regardless of Pap result SEE RESULT S BELOW CASE REPOR T: Cytol ogy Gynec ologi minor Repor t Case: [id number] Autho marce caceres Provi bernardo: Genaro Goldstein Colle 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 ----- ----- ----- ----- ----- ----- ----- ----- ----- ----- ----- ----- ----- ----- ----- ----- ----- ---- FINAL DIAGN OSIS: Negat lluvia for Intra epith elial Mayra paul or Tonia salas ([facility]) . Elect denise meade porter d by Rory [place], CT on 2023 at 10:32 AM ----- ----- ----- ----- ----- ----- ----- ----- ----- ----- ----- ----- ----- ----- ----- ----- ----- ---- HPV RESUL TS: HPV mRNA E6/E7 : No HPV mRNA Detec luis alfredo NOTE: This high risk HPV mRNA assay detec ts fourt een high- risk HPV types (16, 18, 31, 33, 35, 39, 45, 51, 52, 56, 58, 59, 66, 68) witho ut diffe renti ation . COMME NT: This speci men was revie wed by a Cytot echno logis t and/o r Patho logis t (as indic ated in this repor t) after evalu ation using the Thinp rep Imagi ng Syste m. CLINI MINOR INFOR MATIO N: Menst rual Statu s: LMP (if appli cable ): Clini minor Histo ry/Pr eviou s Pap: Type of Neopl harjeet (if appli cable ): Signi priyanka t Clini minor Findi ngs: Other Histo ry: Hormo cory (if appli cable ): PAP EDUCA PHUC L NOTE: The Pap Test is a scree lisa test with an inher ent false negat lluvia rate. Liqui d-bas ed sampl ing may decre ase, but will not elimi johnson, false negat lluvia resul ts. A negat lluvia resul t does not precl ude the prese nce and/o r devel opmen t of disea se, since the prese nce of abnor mal cells in the sampl e depen ds on the locat ion of the lesio n and sampl ing techn ique. Ashlee nued regul ar scree lisa is the best metho d of cance r preve ntion . If repor luis alfredo cytol ogic findi ng do not corre late with physi minor and/o r histo rical findi ngs, furth er inves tigat ion is recom davon d, as clini evan nguyen nted. Not Available [facility] (Lab) [address], [place], [address], 06/27/2023 11:36:58 Result Notes None recorded. Procedures Surgical History Date Name Laterality Status Provider Name and Address Organization Details Recorded Time 4 Date of Last Pap Smear completed Missy Franklin [facility] 07/19/2023 14:47:05 9 Date of Last Mammogram completed [facility] 10/09/2021 12:37:44 3 Endometrial Ablation completed [facility] 10/09/2021 12:39:45 Imaging Results None recorded. Procedure Notes None recorded. Medical Equipment None Reported. Allergies No known drug allergies Medications Name Sig Start Date Stop Date Status Note LastModified by Organization Details LastModified Time furosemide 40 mg tablet TAKE 1 TABLET BY MOUTH EVERY DAY 10/09 completed Not Available Not Available Not Available valacyclovi r 1 gram tablet TAKE 1 TABLET BY MOUTH TWICE A DAY FOR 10 DAYS 11/20 completed Not Available Not Available Not Available prednisone 20 mg tablet TAKE 1 TABLET EVERY DAY FOR 10 DAYS THEN 1 TABLET EVERY OTHER DAY FOR 8 DAYS active Not Available Not Available No t Available citalopram 20 mg tablet TAKE 1 TABLET BY MOUTH EVERY DAY 11/20 completed Not Available Not Available Not Available famotidine 20 mg tablet TAKE 1 TABLET BY MOUTH TWICE A DAY active Not Available Not Available No t Available estradiol 1 mg tablet take 1 tablet daily active Not Available Not Available No t Available gabapentin 800 mg tablet TAKE ONE TABLET BY MOUTH FOUR TIMES A DAY active Not Available Not Available No t Available famotidine 20 mg (Dis) tablet 10/09 completed Not Available Not Available Not Available nicotine 21 mg/24 hr daily transdermal patch APPLY 1 PATCH TO SKIN TRANSDERM ALLY ONCE A DAY 06/20 completed Not Available Not Available Not Available ergocalcife rol (vitamin D2) 1,250 mcg (50,000 unit) capsule TAKE 1 CAPSULE BY MOUTH ONE TIME PER WEEK FOR 90 DAYS active Not Available Not Available No t Available fluticasone propionate 50 mcg/actuati on nasal spray,suspe nsion SPRAY 1 SPRAY INTO EACH NOSTRIL EVERY DAY FOR 30 DAYS 06/20 completed Not Available Not Available Not Available progesteron e micronized 100 mg capsule take 1 capsule daily active Not Available Not Available No t Available Testim 50 mg/5 gram (1 %) transdermal gel Apply two drops to each inner thigh area daily washing hands post-appl ication to avoid residual spead of medicatio n. 06/20 completed Not Available Not Available Not Available duloxetine 30 mg capsule,del ayed release TAKE 1 CAPSULE BY MOUTH TWICE A DAY active Not Available Not Available No t Available duloxetine 60 mg capsule,del ayed release 60 mg every day by oral route. 2022 active Not Available Not Available Not Avai lable Vitals Date Recorded Body height Body mass index (BMI) Body weight Systolic blood pressure Diastolic blood pressure Provider Name and Address Organization Details Last Updated DateTime 10/09/2021 164.47 cm 36.4 kg/m2 46342.54 g 112 mm[Hg] 74 mm[Hg] Lupe Jones [facility] 2 12:37:32 Date Recorded Body height Body mass index (BMI) Body weight Provider Name and Address Organization Details Last Updated DateTime 11/20/2021 164.47 cm 36.4 kg/m2 08805.54 g Lupe Robert [facility] 11/20/2021 15:23:07 Date Recorded Systolic blood pressure Diastolic blood pressure Provider Name and Address Organization Details Last Updated DateTime 11/20/2021 110 mm[Hg] 80 mm[Hg] Sury Gannon, [facility] [address], [place], [address], [facility] 11/20/2021 17:06:03 Date Recorded Body height Body mass index (BMI) Body weight Systolic blood pressure Diastolic blood pressure Provider Name and Address Organization Details Last Updated DateTime 06/21/2023 164.47 cm 37.6 kg/m2 897804.6 9 g 128 mm[Hg] 83 mm[Hg] Missy Franklin [facility] 15:25:59 Date Recorded Body height Body mass index (BMI) Body weight Systolic blood pressure Diastolic blood pressure Provider Name and Address Organization Details Last Updated DateTime 07/19/2023 164.47 cm 37.7 kg/m2 879015.2 8 g 116 mm[Hg] 78 mm[Hg] Missy Franklin [facility] 14:46:42 Social History Question Answer Notes LastModified by Organizat ion Details LastModified Time Tobacco Smoking Status Current Some Day Smoker Sury Gannon, [facility] [address], [place], [address], [facility] 06/21/2023 15:37:17 Do You Have An Advance Directive? No Information n ot available 10/09/2021 What Is Your Level Of Alcohol Consumption? None Information not available 10/09/2021 Are You Blind Or Do You Have Difficulty Seeing? No Information n ot available 10/09/2021 What Is Your Level Of Caffeine Consumption? Moderate Information not available 10/09/2021 How Much Tobacco Do You Chew? None Information not available 10/09/2021 In The 14 Days Before Symptom Onset, Have You Had Close Contact With A Laboratory-confirm ed COVID-19 While That Case Was Ill? No Information n ot available 10/09/2021 In The 14 Days Before Symptom Onset, Have You Had Close Contact With A Person Who Is Under Investigation For COVID-19 While That Person Was Ill? No Information not available 10/09/2021 Have You Been To An Area Known To Be High Risk For COVID-19? No Information not available 10/09/2021 Are You Deaf Or Do You Have Serious Difficulty Hearing? No Information not available 10/09/2021 What Type Of Diet Are You Following? REGULAR Information n ot available 10/09/2021 What Is The Highest Grade Or Level Of School You Have Completed Or The Highest Degree You Have Received? [id number] Information not available 10/09/2021 What Is Your Occupation? None Information not available 10/09/2021 Are There Any Guns Present In Your Home? Yes Information not available 10/09/2021 Do You Use Protection During Sex? No Information not available 10/09/2021 Do You Use Your Seat Belt Or Car Seat Routinely? Yes Information not available 10/09/2021 Do You Have Smoke And Carbon Monoxide Detectors In Your Home? Yes Information not available 10/09/2021 At What Age Did You Start Smoking Tobacco? 14 Information not available 10/09/2021 How Much Tobacco Do You Smoke? 1 PPD Information not available 10/09/2021 Do You Feel Stressed (tense, Restless, Nervous, Or Anxious, Or Unable To Sleep At Night)? [id number] Information not available 10/09/2021 Do You Use Any Illicit Or Recreational Drugs? No Information not available 10/09/2021 Do You Use Sunscreen Routinely? No Information not available 10/09/2021 How Many Years Have You Smoked Tobacco? 40 Information not available 10/09/2021 Have You Used IV Drugs? No Information not available 10/09/2021 Sex: Unknown Functional Status Question Answer Note LastModified by Organizat ion Details LastModified Time Do you have difficulty walking or climbing stairs? No [email or web address] Information not available 11/20/2021 Are you able to walk? YESLIMIT Information not available 10/09/2021 Are you able to care for yourself? Yes [email or web address] Information n ot available 11/20/2021 Do you have difficulty dressing or bathing? No [email or web address] Information not available 11/20/2021 What is your exercise level? None Information not available 10/09/2021 Mental Status None recorded. Family History Relationship Description Onset Age of this Age Resolved Age Notes LastModified by Organization Details LastModified Time Maternal Aunt Depressive disorder Not available 2021 12:37:36 Mother Anxiety disorder Not available 2021 12:37:36 Mother Depressive disorder Not available 2021 12:37:36 Mother Disorder of thyroid gland 73 [email or web address] Not available 2023 15:26:09 Brother Kidney disease Not available 2021 12:37:36 Sister Anxiety disorder Not available 2021 12:37:36 Sister Depressive disorder Not available 2021 12:37:36 Medical History Condition Response Allergies (Food, seasonal, environmental ) Y Autoimmune disease Y History of abnormal pap Y Arthritis Y Fibromyalgia Y Gynecological History Statement/Question Response Date of Last Mammogram 06/02/2018 Date of LMP 02/08/2012 On BCP's at Conception? N N Was last menstrual period normal Y STIs/STDs Y HPV Vaccine N Duration of Flow (days) 7 Current Control Method Ablation Age at First Child 25 Date of control 02/08/1984 Date of Last Colonoscopy Frequency of Cycle (Q days) 28 Sexually Active? Y Menses Monthly N Age of first menstrual cycle 14 Date of Last Pap Smear 06/21/2023 Sexual Problems? Yes Desired Control Method None LMP Approximate N Obstetrics History GPAL:G 2 P 0 0 0 2 Type Value Living 2 Total 2 Past Encounters Encounter ID Performer Location Encounter Start Date Encounter Closed Date Diagnosis/Indication Diagnosis SNOMED-CT Code Diagnosis ICD10 Code Diagnosis Note [id number] [facility] [address] [address] 10/09/2021 12:24:43 10/13/2021 16:19:47 Reduced libido 4818020 R68.82 Today we discussed menopause & low libido/sex ual desire.Edouard l obtain updated lab work.Base line T-level Counseled on medication R/B's, Most common side effects, & use. All questions were answered to patient satisfacti on. Menopausal symptom 78774 002 N95.1 We discussed Menopausal Hormone therapy (MHT) for women with intact uterus with the goals of reliving vaso-motor sx's using estrogen/p rogestin therapy (EPT) using lowest doses for shortest duration in women 40-59yo. Contraindi cations include: Hx of DVT or thrombolic events, High cholestero l, Hx of breast cancer, known CHD, active liver disease, unexplaine d vag bleeding, high risk endometria l cancer, TIA. Side effects can include but are not limited to: Irregular vag bleeding,, breast tenderness , nausea, weight changes, libido changes, nausea. Adverse Rxn: Elevated BP migraine w/ visual changes, breast cancer dx, GA/stroke, DVT/PE, Endometria l cancer. Please contact office with any new or worsening side effects or adverse reactions. Or if a medical emergency please go to nearest ED/[facility] care for further evaluation . At this time she is not a great candidate for estrogen therapy;an d we discussed the need to be conservati ve with the T-therapy as this can be converted to estrogen in low doses. Progestero ne therapy can help decrease night sweats; another option would be to increase gabapentin at night time; and increase duloxetine daytimes hot flashes. She feels night time is more disruptive to her life at this time. RTO x 4wks med check and WWE with pap/mammo/ needs colonoscop y Tobacco us e cessation education [id number] Z71.6 Encouraged smoking cessation which she is working on now. [id number] Sury Gannon , [facility] [address] [address] 11/20/2021 15:00:53 11/20/2021 17:10:31 Gynecologic examination [id number] Z01.419 Take Calcium with Vitamin D 12-1500mg daily. Do monthly self breast exams. It is advised to get annual flu shot in the fall and she could obtain at [facility] or [facility]. If you haven't received the Tdap vaccine in the last 10 years you should obtain one as well. Have mammogram yearly, bone density every 2-3 years and colonoscop y every 5-10 years depending on findings and history. Engage in daily exercise of low impact aerobic exercise 45-60 minutes 4-5 times weekly. Avoid tobacco and illicit drugs as well as using moderation with alcohol intake less than 1-2 8 oz beverages daily. This lifestyle behavior pattern will lead to less health conditions and longer life span. If BMI greater than 25 weight watchers or dietary consult advised. Questions have been answered. Patient appears to understand instructio ns, but if you have any further questions call or respond to this email Pap/hpv sentSTD Screen sentGeneti c Screen discussedC olon Screen PCPDexa Screen PCPRoutine Labs PCPMammo ordered HRT: will have testim called out & will start Prometrium as discussed BOLIVAR. THen, f/u once started on Testim x 3mos med check. [id number] [facility] [address] [address] 06/21/2023 15:15:20 06/21/2023 15:47:04 Gynecologic examination [id number] Z11.51 Z11.3 Z11.8 Take Calcium with Vitamin D 12-1500mg daily. Do monthly self breast exams. It is advised to get annual flu shot in the fall and she could obtain at [facility] or [facility]. If you haven't received the Tdap vaccine in the last 10 years you should obtain one as well. Have mammogram yearly, bone density every 2-3 years and colonoscop y every 5-10 years depending on findings and history. Engage in daily exercise of low impact aerobic exercise 45-60 minutes 4-5 times weekly. Avoid tobacco and illicit drugs as well as using moderation with alcohol intake less than 1-2 8 oz beverages daily. This lifestyle behavior pattern will lead to less health conditions and longer life span. If BMI greater than 25 weight watchers or dietary consult advised. Questions have been answered. Patient appears to understand instructio ns, but if you have any further questions call or respond to this email Pap/hpv sentSTD Screen declinedGe netic Screen discussedC olon Screen UTD PCPDexa Screen PCPCRoutin e Labs PCP Menopausal symptom 67139 002 N95.1 We discussed Menopausal Hormone therapy (MHT) for women with intact uterus with the goals of reliving vaso-motor sx's using estrogen/p rogestin therapy (EPT) using lowest doses for shortest duration in women 40-59yo. Contraindi cations include: Hx of DVT or thrombolic events, High cholestero l, Hx of breast cancer, known CHD, active liver disease, unexplaine d vag bleeding, high risk endometria l cancer, TIA. Side effects can include but are not limited to: Irregular vag bleeding,, breast tenderness , nausea, weight changes, libido changes, nausea. Adverse Rxn: Elevated BP migraine w/ visual changes, breast cancer dx, GA/stroke, DVT/PE, Endometria l cancer. Please contact office with any new or worsening side effects or adverse reactions. Or if a medical emergency please go to nearest ED/[facility] care for further evaluation . Current smoker; we discussed risks/bene fits/Quali ty of life.Feels Quality of life very important; understand s using for lowest dose for shortest duration.A lready taking some non-hormon al options that are sometimes used for vasomotor sx's which are not entirely helping. RTO x 4wk f/u. Screening mammography 24 [id number] Z12.31 [id number] Sury Gannon , [facility] [address] [address] 07/19/2023 14:31:55 07/19/2023 15:07:03 Menopausal symptom [id number] N95.1 We discussed Menopausal Hormone therapy (MHT) for women with intact uterus with the goals of reliving vaso-motor sx's using estrogen/p rogestin therapy (EPT) using lowest doses for shortest duration in women 40-59yo. Contraindi cations include: Hx of DVT or thrombolic events, High cholestero l, Hx of breast cancer, known CHD, active liver disease, unexplaine d vag bleeding, high risk endometria l cancer, TIA. Side effects can include but are not limited to: Irregular vag bleeding,, breast tenderness , nausea, weight changes, libido changes, nausea. Adverse Rxn: Elevated BP migraine w/ visual changes, breast cancer dx, GA/stroke, DVT/PE, Endometria l cancer. Please contact office with any new or worsening side effects or adverse reactions. Or if a medical emergency please go to nearest ED/[facility] care for further evaluation . Current smoker; we discussed smoking cessations . We discussed the risks/bene fits/Quali ty of life on HRT being a smoker.Fee ls Quality of life very important; understand s using for lowest dose for shortest duration; but that her risks do double for breast cancer/str sabina/clots on HRT being a smoker--we reviewed this twice. Understand ing verbalized . Was chris taking some non-hormon al options that are sometimes used for vasomotor sx's which are not entirely helping. She voices improvemen ts not only in vasomotor sx's but also in her sleep.It has improved dramatical ly; she is so appreciati ve a getting good nights rest.Doesn 't feel drained and fatigued during the dayHas more energy to get out and increase activity. For now we agreed to continue HRT with her verbalizin g understand ing of risks.Her next option would be [place] as she is already on SNRI/Gabap entin which did not help vasomotor sx's. Need to consider trial of transderma l options (patch/Div igel) as this would at least help to decrease some risks that increase due to being a smoker. Wants convenienc e of PO since takes other medication s. Scheduled for MammoUTD with PCP Time spent in visit is a total of 22 mins with at least 50% of visit consisting of counseling and review of plan of care. Health Concerns Section Related Observation LastModified by Organization Detai ls LastModified Time None Recorded Concern Status LastModified by Organization Details LastModified Time None Recorded Advance Directives Directive N: Payers Encounter Date Sequence Insurance Name Policy Number Policy Faust Covered Member ID Faust Member ID Guarantor Name 10/09/2021 1 [facility] ON OR AFTER 08/07/20 (MEDICAID REPLACEMENT - HMO) Irma Pantoja [id number] Irma Pantoja 11/20/2021 1 [facility] ON OR AFTER 08/07/20 (MEDICAID REPLACEMENT - HMO) Irma Pantoja [id number] Irma Pantoja 06/21/2023 1 [facility] ON OR AFTER 08/07/20 (MEDICAID REPLACEMENT - HMO) Irma Pantoja [id number] Irma Pantoja 07/19/2023 1 [facility] ON OR AFTER 08/07/20 (MEDICAID REPLACEMENT - HMO) Irma Pantoja [id number] Irma Pantoja Notes Date Note Type Note Provider Name and Address Organization Details Recorded Time 2 text/html MenopauseReported bypatient.Onset/Timing :6-12 months Quality:night sweats; sleep issues; hot flashes 1-3 times/day; affects quality of life Severity:moderate; interferes with sexual activity Duration:prolonged Context:no menses for over 1 year; has tried herbal remedies Alleviating Factors:increased rest Aggravating Factors:poor sleep; caffeine; stress Associated Symptoms:no abdominal pain; no pelvic pain; no abnormal bleeding; no vaginal discharge; no dysuria; no dispareunia; no changes in bowel function; no fever; no vaginal dryness; no irritability; no depression; no anxiety; no skin changes; no changes in urination;loss of libido ZEE Martin [address], [place], [address], [facility] 10/09/2021 15:52:27 2 text/html Annual Media Law Faculty Member Post-MenopausalReporte d bypatient.Menopausal Symptoms:no menopausal symptoms; normal vaginal lubrication Vaginal Bleeding:history of menopause having occurred; no history of post menopausal bleeding Urinary Symptoms:no hematuria; no incontinence; no nocturia; no urinary frequency Vulva:no genital lesion; no vulvar atrophy Vagina:normal vaginal discharge; no vaginal atrophy Breast:no breast lump; no nipple discharge; no breast pain Sexual Complaints:no sexual complaints;decreased libido Psychological Symptoms:no depression; no anxiety Preventive Measures:encourage regular mammograms starting age 40; encourage self breast examination; encourage regular exercise; encourage no tobacco use; needs to schedule mammogram; history of recent colonoscopy ZEE Martin [address], [place], [address], [facility] 11/20/2021 17:07:43 4 text/html Annual [employer] Faculty Member Post-MenopausalReporte d bypatient.Menopausal Symptoms:normal vaginal lubrication;hot flashes;insomnia due to night sweats Vaginal Bleeding:history of menopause having occurred; no history of post menopausal bleeding Urinary Symptoms:no hematuria; no incontinence; no nocturia; no urinary frequency Vulva:no genital lesion; no vulvar atrophy Vagina:normal vaginal discharge; no vaginal atrophy Breast:no breast lump; no nipple discharge; no breast pain Sexual Complaints:no sexual complaints;decreased libido Psychological Symptoms:no depression; no anxiety Preventive Measures:encourage regular mammograms starting age 40; encourage self breast examination; encourage regular exercise; encourage no tobacco use; needs to schedule mammogram; needs to schedule colonoscopy [facility] [address], [place], [address], [facility] 06/21/2023 15:46:55 4 text/html Here today for medication check of HRT. [facility] [address], [place], [address], [facility] 07/20/2023 13:48:43 OBGyn Episode Ob Episode Information Episode Created Date Number of Fetuses Patient Bloodtype Patient rh Status Prepregnancy Weight lbs Domestic Partner Domestic Partner Phone Father Name Rn Radiation Status 10/10/19 22 1 CLOSED Fetus Data First Name Last Name Admitted to NICU Weight (g) Sex Living Outcome Pediatric Complications Fetus ID Race Codes Race Delivery Type M [id number] Vaginal Delivery Humberto Calculation Initial Humberto Date Initial Exam Date Initial Exam Provider Initial Ultrasound Date Last Menstrual Period Date Ultra Sound Weeks Gestation 0 Eighteen To Twenty Week Humberto Update Ultra Sound Date Fundal Height At Umbil Quickening Date Ultra Sound Latest Weeks Gestation Final Humberto Confirmed By Final Humberto Confirmed Date Final Humberto Date Ultra Sound Latest Days Gestation 0 0 Menstrual History Last Menstrual Date Menses Monthly On Bcp Conception Prior Menses Frequency Hcg Plus Date Menarche Onset Age Delivery Information Delivery Date Delivery Type Labor Anesthesia Weeks Gestation Incision Type Labor Labor Length Hrs Delivered By Post Complications Tubal Sterilization Discharge Date Comments 1 Discharge Information Feeding Method Contraceptive Method Maternal HG B and HCT Levels Ob Episode Information Episode Created Date Number of Fetuses Patient Bloodtype Patient rh Status Prepregnancy Weight lbs Domestic Partner Domestic Partner Phone Father Name Rn Radiation Status 10/10/19 22 1 CLOSED Fetus Data First Name Last Name Admitted to NICU Weight (g) Sex Living Outcome Pediatric Complications Fetus ID Race Codes Race Delivery Type M [id number] Vaginal Delivery Humberto Calculation Initial Humberto Date Initial Exam Date Initial Exam Provider Initial Ultrasound Date Last Menstrual Period Date Ultra Sound Weeks Gestation 0 Eighteen To Twenty Week Humberto Update Ultra Sound Date Fundal Height At Umbil Quickening Date Ultra Sound Latest Weeks Gestation Final Humberto Confirmed By Final Humberto Confirmed Date Final Humberto Date Ultra Sound Latest Days Gestation 0 0 Menstrual History Last Menstrual Date Menses Monthly On Bcp Conception Prior Menses Frequency Hcg Plus Date Menarche Onset Age Delivery Information Delivery Date Delivery Type Labor Anesthesia Weeks Gestation Incision Type Labor Labor Length Hrs Delivered By Post Complications Tubal Sterilization Discharge Date Comments 8 Discharge Information Feeding Method Contraceptive Method Maternal HG B and HCT Levels
--- OUTSIDE RECORDS SUMMARY | 2024-03-28 16:11 | XMS_ITS | Referral Summary ---
Author Organization [facility] Address [address] [place] [address] Care Team Providers Care Dicer Machine Operator Name Role Phone Daina Lehman APRN-BUZZLE BUFFER Primary Care Provi bernardo Bimal Lind MD Unavailable [phone] Source Comments [facility],non-owned Affiliates and Associated Physician Practices is amultiple site organization consisting of ambulatory clinics and hospital sitesin [place], [place], [place] and [place]. This disclosure is being madepursuant to the Care Everywhere program and may not contain all information available regarding this patient. Last updated 17.[facility] Allergies Active Allergy Reactions Criticality Noted Date [...] Administration Dates Next Due INFLUENZA VACCINE 12/18/2020 Social History Tobacco Use Types Packs/Day Years [...] Comments Blood Pressure 108/78 12/25/2019 8:34 AM STATISTICS MANAGER Pulse 80 12/25/2019 8:34 AM STATISTICS MANAGER Temperature 37.2 C (99 F) 12/25/2019 8:34 AM STATISTICS MANAGER Respiratory Rate 22 12/31/2012 1:01 PM STATISTICS MANAGER Oxygen Saturation 100% 04/18/2019 12:57 PM CDT Inhaled Oxygen Concentration - - Weight 106.1 kg (234 lb) 12/25/2019 8:34 AM STATISTICS MANAGER Height 165.1 cm (5' 5 ) 12/25/2019 8:34 AM STATISTICS MANAGER Body Mass Index 38.94 12/25/2019 8:34 AM STATISTICS MANAGER Plan of Treatment Not on file Care Teams Dicer Machine Operator Relationship Specialty Start Date End Date Daina Lehman APRN-BUZZLE BUFFER PCP - General 04/18/19 Bimal Lind MD Internal Medicine 04/18/19
--- OUTSIDE RECORDS SUMMARY | 2024-03-28 16:11 | XMS_ITS | Data Portability ---
Author Organization [facility] [employer], Main Office Address [address] [place] [address] Assessment Encounter Date Assessment Date Assessment LastModified by Organization Details LastModified Time 06/13/2023 06/13/2023 Assessment: WILMA PLMD Hypoventilation Plan: The following were reviewed and explained to the patient: primary care/referral note General information on sleep disordered breathing, evaluation of sleep disordered breathing, treatment with PAP therapy, and living with PAP therapy were covered. Chapter 1 of educational DVD was shown. PSG is medically necessary to determine the degree of and management of sleep apnea. We discussed with the patient the impact of weight on: Sleep disordered breathing MICHELLE OA We discussed with the patient the benefit of PAP therapy on: Sleep disordered breathing MICHELLE Educated the patient on sleep hygiene measures. Relaxing rituals to rest easy, understanding foods with positive and negative impact on sleep, creating a peaceful sleep environment, timing of exercise, using herbal sleep aids, and practicing sleep-friendly meditation were covered. To determine how much sleep is needed, the patient will assess where she falls on the spectrum, examine what lifestyle factor such as stress is affecting the quality and quantity of sleep. In general, adults need 7-9 hours of sleep. Educated the patient regarding foods that promote sleep. These include but are not limited to cherries, bananas, toast, oatmeal, and warm milk. Educated the patient regarding foods and drinks to avoid before bedtime. These include but are not limited to aged cheese, chocolate, spicy foods, tomato-based sauces, soy, ginseng tea and processed meat. Advocated influenza vaccination annually and pneumonia vaccination in 2032. Advocated weight loss through diet and exercise. Patient's ideal body weight according to height and gender is up to 140 lbs. Encouraged patient to adjust caloric intake to maintain/achieve ideal body weight, emphasizing on fruits, vegetables, whole grains, and fat-free or low-fat products. These include lean meats, poultry, fish, beans, eggs, and nuts and foods that are low in saturated fats, trans-fats, cholesterol, salt (sodium), and glycemic index. Stressed the importance of regular exercise up to the patient's capacity limits. In this case, we recommend 20 min daily walking, 2 days a week of resistance training. Patient to monitor BP daily and bring records to PCP for further management. Follow-up: 1 week after diagnostic sleep study [email or web address] Not available 06/13/2023 14:42:12 Plan of Treatment Reminders Order Date Submit Date Provider Last Modified By Organization Details Last Modified Time Details Appointments None recorded. Lab None recorded. Referral None recorded. Procedures None recorded. Surgeries None recorded. Imaging polysomnog bárbara, diagnostic , 6 yrs or older - no auth required 2023 024 [email or web address] 25 [facility], [address] [place], [address], 09:14:23 Medication Orders None recorded. Patient TargetsNo targets recorded. Patient InstructionsNo instructions recorded. Reason for Referral None Reported. Problems Name Problem SNOMED Code Status Onset Date Resolution Date Notes Provider Name and Address Organization Details Recorded Time Sleep apnea [id number] Active 024 Killian Guzman MD [address] [facility], [facility] [address], [place], [address] , [facility] [employer] 06/13/2023 14:05:50 Notes:Medical History: Postn gregorio drip Obesity MICHELLE RLS Vit D deficiency OA Fibromyalgia Procedure History: Uterine ablation for menorrhagia 2022 Occupational History: Unemployed [employer] Problem Notes None recorded. Medical Equipment None Reported. Allergies No known drug allergies Medications Name Sig Start Date Stop Date Status Note LastModified by Organization Details LastModified Time famotidine 20 mg tablet TAKE 1 TABLET BY MOUTH TWICE A DAY NEEDED active Not Available Not Available No t Available gabapentin 800 mg tablet TAKE 1 TABLET BY MOUTH FOUR TIMES A DAY 30 DAYS active Not Available Not Available No t Available ergocalciferol (vitamin D2) 1,250 mcg (50,000 unit) capsule TAKE 1 CAPSULE BY MOUTH ONE TIME PER WEEK FOR 90 DAYS active Not Available Not Available No t Available fluticasone propionate 50 mcg/actuation nasal spray,suspensio n SPRAY 1 SPRAY INTO EACH NOSTRIL EVERY DAY FOR 30 DAYS active Not Available Not Available No t Available progesterone micronized 100 mg capsule TAKE 1 CAPSULE BY MOUTH EVERY DAY AT BEDTIME FOR 30 DAYS active Not Available Not Available No t Available duloxetine 30 mg capsule,delayed release TAKE 1 CAPSULE BY MOUTH TWICE A DAY active Not Available Not Available No t Available Vitals Date Recorded Body weight Body mass index (BMI) Body height Body temperature Oxygen saturation Oxygen saturation in Arterial blood by Pulse oximetry Heart rate Systolic blood pressure Diastolic blood pressure Provider Name and Address Organization Details Last Updated DateTime 012976. 69 g 36.2 kg/m2 167.64 cm 98 [degF] 97 % 97 % 72 /min 120 mm[Hg] 72 mm[Hg] Alyse Buchanan CMA [facility] [employer] [facility] [employer] 14:06:13 Date Recorded Heart rate Respiratory rate Provider N [email or web address] and Address Organization Details Last Updated DateTime 06/13/2023 72 /min 15 /min Killian Guzman MD [address] [place] [address] [address], [address], [facility] [employer] 06/13/2023 14:25:56 Social History Question Answer Notes LastModified by Organizat ion Details LastModified Time Tobacco Smoking Status Current Every Day Smoker Alyse Buchanan CMA null, [facility] [employer] [facility] [employer] 06/13/2023 14:09:46 What Is Your Level Of Alcohol Consumption? None [email or web address] Information not available 06/13/2023 Is Blood Transfusion Acceptable In An Emergency? Yes Information not available 06/13/2023 What Is Your Level Of Caffeine Consumption? None [email or web address] Information not available 06/13/2023 In The 14 Days Before Symptom Onset, Have You Had Close Contact With A Laboratory-confirm ed COVID-19 While That Case Was Ill? No [email or web address] Information n ot available 06/13/2023 In The 14 Days Before Symptom Onset, Have You Had Close Contact With A Person Who Is Under Investigation For COVID-19 While That Person Was Ill? No [email or web address] Information not available 06/13/2023 Are You Currently Employed? No [email or web address] Information not available 06/13/2023 What Type Of Diet Are You Following? REGULAR [email or web address] Information n ot available 06/13/2023 What Is The Highest Grade Or Level Of School You Have Completed Or The Highest Degree You Have Received? FD17342-1 [email or web address] Information not available 06/13/2023 Do You Have A Humidifier? No Information not available 06/13/2023 How Many Children Do You Have? 2 [email or web address] Information not available 06/13/2023 Do You Have Any Pets? Yes 4 Cats Information not available 06/13/2023 What Is Your Relationship Status? [email or web address] Information not available 06/13/2023 Do You Use Your Seat Belt Or Car Seat Routinely? Yes [email or web address] Information not available 06/13/2023 Do You Have Smoke And Carbon Monoxide Detectors In Your Home? Yes [email or web address] Information not available 06/13/2023 Do You Feel Stressed (tense, Restless, Nervous, Or Anxious, Or Unable To Sleep At Night)? [id number] [email or web address] Information not available 06/13/2023 Do You Use Any Illicit Or Recreational Drugs? No [email or web address] Information not available 06/13/2023 Do You Use Sunscreen Routinely? Yes [email or web address] Information not available 06/13/2023 How Many Years Have You Smoked Tobacco? 40 [email or web address] Information not available 06/13/2023 Have You Recently Traveled Abroad? No [email or web address] Information not available 06/13/2023 Do You Have Any Dietary Restrictions? No [email or web address] Information not available 06/13/2023 Sex: Unknown Functional Status Question Answer Note LastModified by Organization D etails LastModified Time What is your exercise level? None Information not available 06/13/2023 Mental Status None recorded. Family History Relationship Description Onset Age of this Age Resolved Age Notes LastModified by Organization Details LastModified Time Father Malignant neoplasm of bone [email or web address] Not available 2023 10:50:50 Father Gastroesopha geal reflux disease [email or web address] Not available 2023 14:24:08 Mother Malignant tumor of thyroid gland [email or web address] Not available 2023 14:23:09 Mother Depressive disorder [email or web address] Not available 2023 14:24:30 Paternal Aunt Malignant tumor of ovary [email or web address] Not available 2023 14:23:24 Paternal Aunt Malignant tumor of breast [email or web address] Not available 2023 14:23:36 Sister Depressive disorder [email or web address] Not available 2023 14:24:37 Brother End-stage renal disease [email or web address] Not available 2023 14:24:47 Medical History No medical history recorded. Gynecological HistoryNo gynecological history recorded. Obstetrics History GPAL:G 0 P 0 0 0 0 Past Encounters Encounter ID Performer Location Encounter Start Date Encounter Closed Date Diagnosis/Indication Diagnosis SNOMED-CT Code Diagnosis ICD10 Code Diagnosis Note [id number] Killian Guzman MD [facility] [address] [address] 06/13/2023 13:54:08 06/14/2023 08:10:04 Sleep apnea [id number] G47.30 G47.33 G47.36 G47.61 Health Concerns Section Related Observation LastModified by Organization Detai ls LastModified Time None Recorded Concern Status LastModified by Organization Details LastModified Time None Recorded Advance Directives Directive None Recorded Payers Encounter Date Sequence Insurance Name Policy Number Policy Faust Covered Member ID Faust Member ID Guarantor Name 06/13/2023 1 [facility] - DOS ON OR AFTER 20 (MEDICAID REPLACEMENT - HMO) Irma Pantoja [id number] Irma Pantoja Notes Date Note Type Note Provider Name and Address Organization Details Recorded Time 06/13/2023 text/html Primary care/Referring provider: Drew Chadwick APRN At home, the patient sleeps from 12:30 am to 9 am and wakes up without an alarm. Snoring: heavy, since . Snorting: no Choking: no Coughing: no Gasping: no Gagging: no Sighing: no Witnessed apnea: yes Twitching or jerking of leg(s), arm(s), body, head: yes Teeth grinding: no Teeth clenching: no Sleeptalking: no Sleepwalking: no Sleep crying: no Bedwetting: no Tongue/lip/gum/christina k biting: no Sleeping with open mouth: yes Sleep paralysis: no Hypnagogic hallucinations: no Hypnopompic hallucinations: no Vivid dreams: yes Difficulty with sleep onset: yes Difficulty with sleep maintenance: yes Sleep interruptions: temperature intolerance Patient wakes up with: fatigue, xerostomia, hoarse voice, cognitive impairment, mobility impairment, dexterity impairment Daytime cataplexy: no Morning hypersomnolence: yes Afternoon hypersomnolence: yes Caffeine sources in diet: coffee 1 cup per day, chocolate 1 candy bar per month Associated medical and psychiatric conditions: Congestive heart failure: no Coronary artery disease: no Myocardial infarction: no Hypertension: no Stroke: no Bronchial asthma: no Chronic obstructive pulmonary disease: no Depression: no Bipolar disorder: no Anxiety: no Panic disorder: no Posttraumatic stress disorder: no Attention deficit and hyperactivity disorder: no Obsessive Compulsive disorder: no Schizophrenia: no Schizoaffective disorder: no Personality disorder: no Chronic analgesic use: no Chronic sedative/hypnotic use: no EPWORTH SLEEPINESS SCALE (ESS) CHANCE OF DOZING SCORE 0 = would never doze 1 = slight chance of dozing 2 = moderate chance of dozing 3 = high chance of dozing SITUATION AND CHANCE OF DOZING Sitting and reading - 2 Watching television - 2 Sitting inactive in a public place (e.g. a theater or meeting) - 1 As a passenger in a car for an hour without a break - 1 Lying down to rest in the afternoon when circumstances permit - 2 Sitting and talking to someone - 1 Sitting quietly after lunch without alcohol - 2 In a car, while stopped for a few minutes in the traffic - 1 TOTAL SCORE 12 Subjectively, patient has a moderate chance of dozing. Killian Guzman MD [address] [address], [place], [address], [place] [facility] [place] [employer] 06/13/2023 14:42:16 OBGyn Episode No OBEpisode recorded.
--- OUTSIDE RECORDS SUMMARY | 2024-03-28 16:11 | XMS_ITS | Patient Health Summary ---
Author Organization [facility] Address [address] [place] [address] Care Team Providers Care Work Order Sorting Clerk Name Role Phone Daina Lehman APRN-BOWLING BALL FINISHER Primary Care Provi bernardo Bimal Lind MD Unavailable [phone] Note from [facility],non-owned Affiliates and Associated Physician Practices is amultiple site organization consisting of ambulatory clinics and hospital sitesin [place], [place], [place] and [place]. This disclosure is being madepursuant to the Care Everywhere program and may not contain all informatio navailable regarding this patient. Last updated 17.[facility] Allergies * Molds & Smuts(Rhinitis,Other) -Medium Criticality Medications * Be aware that medications may not be up to date on this document. Alwaysverify current medications with the patient. * folic acid (FOLVITE) 1 MG tablet(Started 11/18/2019) Take 1 mg by mouth once daily * traMADol (ULTRAM) 50 MG tablet(Started 11/14/2019) Take 50-100 mg by mouth every 6 hours as needed * meloxicam (MOBIC) 15 MG tablet(Started 02/20/2020) Take 1 (one) tablet by mouth once daily 2 refills by 02/19/2021 * gabapentin (NEURONTIN) 400 MG capsule Take 800 mg by mouth 4 times daily * furosemide (LASIX) 20 MG tablet Take 20 mg by mouth once daily * dapsone (ACZONE) 5 % gel(Started 04/15/2021) Apply to entire affected face daily 3 refills by 04/15/2022 * tretinoin (RETIN-A) 0.025 % cream(Started 04/15/2021) Pea sized amount to entire face at night. 30 days supply. 3 refills by 04/15/2022 * mupirocin (BACTROBAN) 2 % ointment(Started 04/15/2021) Apply to affected area on nose daily * spironolactone (ALDACTONE) 100 MG tablet(Started 04/15/2021) Take 1 (one) tablet by mouth once daily 1 refill by 04/15/2022 Active Problems Problem Noted Date Diagnosed Date Acne vulgaris 04/15/2021 Staphylococcal infection 04/15/2021 High risk medications (not anticoagulants) long- term use 04/15/2021 Dizziness and giddiness 12/31/2012 Immunizations * INFLUENZA VACCINE(Given 12/18/2020) Social History Tobacco Use Types Packs/Day Years [...] Comments Blood Pressure 108/78 12/25/2019 8:34 AM MARKETING RESEARCHER Pulse 80 12/25/2019 8:34 AM MARKETING RESEARCHER Temperature 37.2 C (99 F) 12/25/2019 8:34 AM MARKETING RESEARCHER Respiratory Rate 22 12/31/2012 1:01 PM MARKETING RESEARCHER Oxygen Saturation 100% 04/18/2019 12:57 PM CDT Inhaled Oxygen Concentration - - Weight 106.1 kg (234 lb) 12/25/2019 8:34 AM MARKETING RESEARCHER Height 165.1 cm (5' 5 ) 12/25/2019 8:34 AM MARKETING RESEARCHER Body Mass Index 38.94 12/25/2019 8:34 AM MARKETING RESEARCHER Procedures * XR KNEE BILAT 4VW OR MORE(Performed 09/29/2022) Performed for Pain in both knees, unspecified chronicity * XR LUMBAR SPINE 2 OR 3VW(Performed 09/29/2022) Performed for Low back pain, unspecified back pain laterality, unspecified chronicity, unspecified whether sciatica present * XR HIP RIGHT 2VW OR MORE(Performed 09/29/2022) Performed for Right hip pain * CARDIAC RHYTHM STRIP ORDER(Performed 01/01/2013) * COMPREHENSIVE METABOLIC PANEL(Performed 12/31/2012) * CBC W AUTO DIFFERENTIAL(Performed 12/31/2012) * EKG 12-LEAD(Performed 12/31/2012) Performed for Dizziness And Giddiness * GLUCOSE - POINT OF CARE(Performed 12/31/2012) Results * XR KNEE 4+ VW BILAT 15350 X 2 (09/29/2022 12:28 PM CDT) Anatomical Region Laterality Modality Lower Extremity Computed Radiogr aphy 09/29/2022 1:30 PM CDT Narrative 09/30/2022 7:13 AM CDT PROCEDURE: XR KNEE BILAT 4VW OR MORE DATE/TIME OF EXAM: 09/29/2022 12:29 PM CLINICAL INFORMATION: None relevant/not provided if blank. Indication: M25.561: Pain in right knee M25.562: Pain in left knee Additional History: COMPARISON: None. No acute fracture, dislocation, destructive process. Moderate joint space narrowing of medial compartment of right knee. Mild joint space narrowing of medial compartment of left knee. No osseous erosive changes No significant joint effusion. Soft tissue structures are normal. > Interpreting Provider: Johanny Longo MD on 09/30/2022 7:13 AM Procedure Note Johanny Longo MD - 09/30/2022 PROCEDURE: XR KNEE BILAT 4VW OR MORE DATE/TIME OF EXAM: 09/29/2022 12:29 PM CLINICAL INFORMATION: None relevant/not provided if blank. Indication: M25.561: Pain in right knee M25.562: Pain in left knee Additional History: COMPARISON: None. No acute fracture, dislocation, destructive process. Moderate joint space narrowing of medial compartment of right knee. Mild joint space narrowing of medial compartment of left knee. No osseous erosive changes No significant joint effusion. Soft tissue structures are normal. > Interpreting Provider: Johanny Longo MD on 09/30/2022 7:13 AM Rogers Parrish MD DIAGNOSTIC IMAGING ORDERABLES * XR HIP 2+ VW RIGHT 85288 (09/29/2022 12:28 PM CDT) Anatomical Region Laterality Modality Pelvis, Lower Extremity Computed Radiography 09/29/2022 1:31 PM CDT Impressions 09/30/2022 7:13 AM CDT IMPRESSION: Normal right hip. > Interpreting Provider: Johanny Longo MD on 09/30/2022 7:13 AM Narrative 09/30/2022 7:13 AM CDT PROCEDURE: XR HIP RIGHT 2VW OR MORE 09/29/2022 1:31 PM HISTORY: M25.551: Pain in right hip. FINDINGS AND IMPRESSION: COMPARISON: No comparison. Views of the right hip show no fracture, dislocation or other bony abnormalities. Procedure Note Johanny Longo MD - 09/30/2022 PROCEDURE: XR HIP RIGHT 2VW OR MORE 09/29/2022 1:31 PM HISTORY: M25.551: Pain in right hip. FINDINGS AND IMPRESSION: COMPARISON: No comparison. Views of the right hip show no fracture, dislocation or other bony abnormalities. IMPRESSION: Normal right hip. > Interpreting Provider: Johanny Longo MD on 09/30/2022 7:13 AM Rogers Parrish MD DIAGNOSTIC IMAGING ORDERABLES * XR LUMBAR SPINE 2 OR 3 VW 09472 (09/29/2022 12:28 PM CDT) Anatomical Region Laterality Modality Spine Computed Radiogr aphy 09/29/2022 1:31 PM CDT Narrative 09/30/2022 7:14 AM CDT PROCEDURE: XR LUMBAR SPINE 2 OR 3VW DATE/TIME OF EXAM: 09/29/2022 12:29 PM CLINICAL INFORMATION: None relevant/not provided if blank. Indication: M54.50: Low back pain, unspecified Additional History: COMPARISON: None. No acute fracture, dislocation, destructive process Lumbar spondylosis Moderate disc degeneration L5-S1. Moderate disc degeneration L1-L2 and L2-L3. Mild disc degeneration L3-L4. No spondylolisthesis Pedicles and paraspinal soft tissue structures are normal. Prevertebral soft tissue structures appear unremarkable Significant constipation. > Interpreting Provider: Johanny Longo MD on 09/30/2022 7:14 AM Procedure Note Johanny Longo MD - 08/24/2023 PROCEDURE: XR LUMBAR SPINE 2 OR 3VW DATE/TIME OF EXAM: 09/29/2022 12:29 PM CLINICAL INFORMATION: None relevant/not provided if blank. Indication: M54.50: Low back pain, unspecified Additional History: COMPARISON: None. No acute fracture, dislocation, destructive process Lumbar spondylosis Moderate disc degeneration L5-S1. Moderate disc degeneration L1-L2 and L2-L3. Mild disc degeneration L3-L4. No spondylolisthesis Pedicles and paraspinal soft tissue structures are normal. Prevertebral soft tissue structures appear unremarkable Significant constipation. > Interpreting Provider: Johanny Longo MD on 09/30/2022 7:14 AM Rogers Parrish MD DIAGNOSTIC IMAGING ORDERABLES * CARDIAC RHYTHM STRIP ORDER (01/01/2013 4:10 PM MARKETING RESEARCHER) Narrative 01/01/2013 4:10 PM MARKETING RESEARCHER Ordered by an unspecified provider. Transcriptions Document, Scanned - 01/01/2013 4:10 PM CST Scanned Document CARDIAC SERVICES ORD ERABLES * CBC W AUTO DIFFERENTIAL (12/31/2012 11:40 AM MARKETING RESEARCHER) WBC 7.5 4.4 - 10.7 x10^9/L 12/31/2012 11:49 AM [facility] RBC 4.56 3.80 - 5.20 x10^12/L 12/31/2012 11:49 AM [facility] Hemoglobin 12.9 12.0 - 15.6 gm/dL 12/31/2012 11:49 AM [facility] Hematocrit 37.6 35.9 - 45.5 % 12/31/2012 11:49 AM [facility] MCV 82.5 80.7 - 98.3 fl 12/31/2012 11:49 AM [facility] MCH 28.3 26.7 - 34.0 pg 12/31/2012 11:49 AM [facility] MCHC 34.3 30.8 - 35.9 gm/dL 12/31/2012 11:49 AM [facility] Platelet Count 219 153 - 416 x10^9/L 12/31/2012 11:49 AM [facility] RDW-CV 14.9 12.1 - 14.9 % 12/31/2012 11:49 AM [facility] MPV 10.2 9.4 - 12.9 fl 12/31/2012 11:49 AM [facility] Neutrophils % 66.0 44.0 - 73.0 % 12/31/2012 11:49 AM [facility] Lymphocytes % 21.0 20.0 - 43.0 % 12/31/2012 11:49 AM [facility] Monocytes % 10.9 5.0 - 13.0 % 12/31/2012 11:49 AM [facility] Eosinophils % 1.3 0.0 - 6.0 % 12/31/2012 11:49 AM [facility] Basophils % 0.5 0.0 - 2.0 % 12/31/2012 11:49 AM [facility] Immature Granulocytes 0.3 0 - 1 % 12/31/2012 11:49 AM [facility] Neutrophil Absolute 4.97 2.01 - 7.14 x10^9/L 12/31/2012 11:49 AM [facility] Lymphocytes Absolute 1.58 1.07 - 3.94 x10^9/L 12/31/2012 11:49 AM [facility] Monocytes Absolute 0.82 0.26 - 1.07 x10^9/L 12/31/2012 11:49 AM [facility] Eosinophils Absolute 0.10 0 - 0.47 x10^9/L 12/31/2012 11:49 AM [facility] Basophils Absolute 0.04 0 - 0.08 x10^9/L 12/31/2012 11:49 AM [facility] nRBC Auto 0 /100 WBC 12/31/2012 11:49 AM [facility] Blood BLOOD SPECIMEN / Unknown Venipuncture / Unknown 12/31/2012 11:40 AM MARKETING RESEARCHER 12/31/2012 11:46 AM [facility] Allan Kelley MD LAB - HEMATOLOGY ORD ERABLES [facility] [address] [place] [id number] * (ABNORMAL) COMPREHENSIVE METABOLIC PANEL (12/31/2012 11:40 AM MARKETING RESEARCHER) Glucose 84 74 - 106 mg/dL 12/31/2012 12:01 PM [facility] Sodium 140 136 - 145 mmol/L 12/31/2012 12:01 PM [facility] Potassium 3.8 3.5 - 5.1 mmol/L 12/31/2012 12:01 PM [facility] Chloride 107 98 - 107 mmol/L 12/31/2012 12:01 PM [facility] CO2 25 22 - 31 mmol/L 12/31/2012 12:01 PM [facility] Calcium 8.3(L) 8.5 - 10.1 mg/dL 12/31/2012 12:01 PM [facility] Anion Gap 8 5 - 15 mmol/L 12/31/2012 12:01 PM [facility] BUN 8 7 - 21 mg/dL 12/31/2012 12:01 PM [facility] Creatinine 0.66 0.50 - 1.30 mg/dL 12/31/2012 12:01 PM [facility] eGFR by MDRD >60 >60 mL/min/1.7 3m2 12/31/2012 12:01 PM [facility] eGFR by MDRD >60 >60 mL/min/1.7 3m2 12/31/2012 12:01 PM [facility] Alkaline Phosphatase 64 38 - 126 U/L 12/31/2012 12:01 PM [facility] ALT 11(L) 12 - 78 U/L 12/31/2012 12:01 PM [facility] AST 10 5 - 40 U/L 12/31/2012 12:01 PM [facility] Protein Total 7.4 6.4 - 8.2 gm/dL 12/31/2012 12:01 PM [facility] Albumin 3.5 3.4 - 5.0 gm/dL 12/31/2012 12:01 PM [facility] Bilirubin Total 0.4 0.2 - 1.0 mg/dL 12/31/2012 12:01 PM [facility] Blood BLOOD SPECIMEN / Unknown Venipuncture / Unknown 12/31/2012 11:40 AM MARKETING RESEARCHER 12/31/2012 11:46 AM [facility] Allna Kelley MD LAB - CHEMISTRY EMMANUEL ABBOTT [facility] Organization Address City/State/ZIP Co de Phone Number [facility] [address] [place] [id number] * EKG 12-LEAD (12/31/2012 11:12 AM MARKETING RESEARCHER) Ventricular Rate 71 BPM [facility] Atrial Rate 326 BPM [facility] QRS Duration ms 152 ms [facility] Q-T Interval ms 412 ms [facility] QTC Calculation (Bezet) 447 ms [facility] MUSE Calculated R Damar 71 degrees [facility] MUSE Calculated T Damar 54 degrees [facility] Interpretation EKG POOR BASELINE SUSPECT THIS IS SINUS RHYTHM Abnormal ECG No previous ECGs available Confirmed by MD SANTY, DAY Darling ([id number]) on 01/01/2013 12:14:16 PM [facility] 12/31/2012 11:1 2 AM MARKETING RESEARCHER 01/01/2013 12:14 PM MARKETING RESEARCHER Narrative [facility] - 01/01/2013 12:14 PM MARKETING RESEARCHER Procedure Note Document, Scanned - 12/31/2012 11:57 AM CST Transcriptions Document, Scanned - 12/31/2012 11:58 AM CST Document, Scanned - 01/01/2013 12:14 PM CST Allan Kelley MD ECG ORDERABLES Performing Organization Address City/[facility]/ZIP Co de Phone Number [facility] * GLUCOSE - POINT OF CARE (12/31/2012 10:50 AM MARKETING RESEARCHER) Pathologist [facility] Glucose WB/POC 94 70 - 106 mg/dL 12/31/2012 10:52 AM MARKETING RESEARCHER [facility] Blood BLOOD SPECIMEN / Unknown 12/31/2012 10:50 AM MARKETING RESEARCHER 12/31/2012 10:52 AM MARKETING RESEARCHER Allan Kelley MD LAB - POINT OF CARE ORDERABLES [facility] [address] [place] [address] Care Teams Work Order Sorting Clerk Relationship Specialty Start Date End Date Daina Lehman, BEAN PICKER MACHINE OPERATOR-BOWLING BALL FINISHER PCP - General 04/18/19 Bimal Lind MD Internal Medicine 04/18/19
--- OUTSIDE RECORDS SUMMARY | 2024-03-28 16:12 | XMS_ITS ---
Author Organization [facility] Address [address] [place] [address] Care Team Providers Care Chemical Blender Name Role Phone Drew Chadwick Primary Care Provider Allergies No Known Allergies REASON FOR VISIT Follow up Medications Medication SIG (Take, Route, Frequency, Duration) Notes Start Date End Date Status Meloxicam 15 MG 1 tablet Orally Once a day for 30 day(s) Not-Taking Nicotine 21 MG/24HR APPLY 1 PATCH TO SKI N TRANSDERMALLY ONCE A DAY for 30 Not-Taking Cyclobenzaprine HCl 10 MG 1 tablet at be dtime as needed Orally Once a day for 30 day(s) Not-Taking Furosemide 40 MG TAKE 1 TABLET BY KIRSTY EVERY DAY for 90 Not-Taking Famotidine 20 MG TAKE 1 TABLET BY KIRSTY TWICE A DAY for 30 days Active Estrogens Conj Synthetic A Active Gabapentin 800 MG TAKE 1 TABLET BY KIRSTY FOUR TIMES A DAY for 30 days Active DULoxetine HCl 30 MG TAKE 1 CAPSULE BY [facility] TWICE A DAY for 30 Active Vitamin D Active Fluticasone Propionate 50 MCG/ACT 1 spray in each nostril Nasally Once a day for 30 days 02/15/2023 Active Cane - as directed for decreased mobility due to chronic pain and joint issues as needed for 999 days 07/02/2021 Active Ibuprofen 600 MG 1 tablet with food o r milk as needed Orally up to Three times a day for 30 days 03/28/2020 Active Social History Tobacco Use: Social History Observation Description Date Details (start date - stop date) Current Smoker NA - NA Sex Assigned At : Social History Observation Description Sex Assigned At Female Tobacco Control (Standard) Question Answer Notes Tobacco use: Current smoker Vital Signs Weight 228 lbs 01/17/2024 Height 65 in 01/17/2024 BMI 37.94 kg/m2 01/17/2024 Blood pressure systolic 126 mm Hg 01/17/20 24 Blood pressure diastolic 78 mm Hg 024 Heart Rate 78 /min 01/17/2024 Oximetry 97 % 01/17/2024 Respiratory Rate 16 /min 01/17/2024 Encounters Encounter Location Date Provider Diagnosis [address] [place] [address] 01/17/2024 Drew Chadwick Thyroid nodule E04.1 ; Screening for metabolic disorder Z13.228 ; Lipid screening Z13.220 ; Screening for deficiency anemia Z13.0 ; Obesity (BMI 30-39.9) E66.9 ; Nutritional counseling Z71.3 and Nicotine dependence, unspecified, uncomplicated F17.200 Assessments Encounter Date Diagnosis (ICD Code) Assessment Notes Treatment Notes Treatment Clinical Notes Section Notes 01/17/2024 Thyroid nodule (ICD-10 - E04.1) 01/17/2024 Screening for metabolic disorder (ICD-10 - Z13.228) 01/17/2024 Lipid screening (ICD-10 - Z13.220) 01/17/2024 Screening for deficiency anemia (ICD-10 - Z13.0) 01/17/2024 Obesity (BMI 30-39.9) (ICD-10 - E66.9) 01/17/2024 Nutritional counseling (ICD-10 - Z71.3) 01/17/2024 Nicotine dependence, unspecified, uncomplicated (ICD-10 - F17.200) Plan Of Treatment Pending Test Test Name Order Date Ultrasound : Thyroid Sonography B-Scan 1 03/19/2023 Ultrasound : Thyroid 01/17/2024 Future Test Test Name Order Date Hemoglobin A1c* 01/17/2024 CBC With Differential/Platelet* 01/17/20 24 TSH+Free T4* 01/17/2024 Lipid Panel* 01/17/2024 CMP 14 Comprehensive Metabolic Panel* Next Appt Details Follow Up: 3 Months, Reason: Progress Notes * Andreia PANTOJA:1965 ( 58 yo F)Acc No.[id number]:01/17/2024 Progress Notes Patient: Irma VALLEJO Provider: Alonzo Chadwick, MSN, AGPCNP-BC :1965 A ge:58 Y S ex:Female Date:01/17/2024 [facility] Check In:11:49 AM TESTING COORDINATOR Subjective: * Chief Complaints: * F ollow up * HPI: S umjonathan: Needs new order for thyroid ultrasound as she has never had done. Due for labs. Denies any acute issues. I nterim History: Emergency room visit N o. Was hospitalized N o. D epression Screening: PHQ-9 L ittle interest or pleasure in doing things?Several days F eeling down, depressed, or hopeless S everal T rouble falling or staying asleep, or sleeping too much M ore than half the days F eeling tired or having little energy S everal days P oor appetite or overeating S everal F eeling bad about yourself or that you are a failure, or have let yourself or your family down N ot at all T rouble concentrating on things, such as reading the newspaper or watching television S ever M oving or speaking so slowly that other people could have noticed; or the opposite, being so fidgety or restless that you have been moving around a lot more than usual S everal T houghts that you would be better off or of hurting yourself in some way N ot at all T otal Score 8 I nterpretation M ild Depression S creening: [place] Suicide Severity Rating Scale (LF) D o you want to initiate with S creener form 1 . Wish to be : Have you wished you were or wished you could go to sleep and not wake up? N o 2 . Suicidal Thoughts: Have you actually had any thoughts of killing yourself? N o 6 . Suicide Behaviour: Have you ever done anything,started to do anything, or prepared to end your life? N o I nterpretation: L ow Risk D o Not Use CSSRS Interpretation and Follow Up Plan: CSSRS Interpretation and Follow Up PlanCSSRS Interpretation and Follow Up Plan. CSSRS Interpretation and Follow Up Plan C SSRS Screen documented using SF Y es M oderate or High risk requires selection of a follow up plan C SSRS No/Low: intervention not needed at this time F zoey vaccine: Flu vaccine offered F zoey Vaccine Declined . P reventative Health and Wellness follow-up: Action Plans for Clinical Quality Measures: B reast Cancer Screening: D iscussed need for breast cancer screening. Patient declined. C ervical Cancer Screening: D iscussed need for cervical cancer screening. Referred to [facility] for same day scheduling. C olorectal Cancer Screening: D iscussed need for colorectal cancer screening. Patient declined. H IV Screening: D iscussed need for HIV screening. Patient declined. * ROS: G eneral/Constitutional: Denies C hange in appetite. D enies C hills. D enies F ever. R espiratory: Denies D yspnea. D enies C ough. D enies W heezing. C ardiovascular: Denies E roberto. D enies C hest pain. D enies?Claudication. G astrointestinal: Change in Stools D enies. D enies A bdominal pain.?Denies N ausea. M usculoskeletal: Patient denies a ut MSK issues. * Medical History: * Surgical History: a blation 2012 * Hospitalization/Major Diagno stic Procedure: N o Hospitalization History. * Family History: F ather: , bone cancer. M other: alive. 1 brother(s) , 1 sister(s) . 1 son(s) , 1 daughter(s) . . * Social History: P rimary Social History: L iving Arrangement I s this a supportive environment? Y es Alcohol Use A lcohol Use Frequency: N ever Illicit Substance Usage I llicit Substance Usage: N o Employment Status E mployment Status: U nemployed T obacco Use: T obacco Control (Standard) T obacco use: C urrent smoker M iscellaneous: M ethod of learning P referred method of learning: R eading * Medications: T akingIbuprofen 600 MG Tablet 1 tablet with food or milk as needed Orally up to Three times a day Cane - Miscellaneous as directed for decreased mobility due to chronic pain and joint issues as needed Vitamin D Fluticasone Propionate 50 MCG/ACT Suspension 1 spray in each nostril Nasally Once a day Estrogens Conj Synthetic A Gabapentin 800 MG Tablet TAKE 1 TABLET BY MOUTH FOUR TIMES A DAY DULoxetine HCl 30 MG Capsule Delayed Release Particles TAKE 1 CAPSULE BY MOUTH TWICE A DAY Famotidine 20 MG Tablet TAKE 1 TABLET BY MOUTH TWICE A DAY Taking Ibuprofen 600 MG Tablet 1 tablet with food or milk as needed Orally up to Three times a day Taking Cane - Miscellaneous as directed for decreased mobility due to chronic pain and joint issues as needed Taking Vitamin D Taking Fluticasone Propionate 50 MCG/ACT Suspension 1 spray in each nostril Nasally Once a day Taking Estrogens Conj Synthetic A Taking Gabapentin 800 MG Tablet TAKE 1 TABLET BY MOUTH FOUR TIMES A DAY Taking DULoxetine HCl 30 MG Capsule Delayed Release Particles TAKE 1 CAPSULE BY MOUTH TWICE A DAY Taking Famotidine 20 MG Tablet TAKE 1 TABLET BY MOUTH TWICE A DAY Not- TakingMeloxicam 15 MG Tablet 1 tablet Orally Once a day Nicotine 21 MG/24HR Patch 24 Hour APPLY 1 PATCH TO SKIN TRANSDERMALLY ONCE A DAY Cyclobenzaprine HCl 10 MG Tablet 1 tablet at bedtime as needed Orally Once a day Furosemide 40 MG Tablet TAKE 1 TABLET BY MOUTH EVERY DAY Medication List reviewed and reconciled with the patientNot-Taking Meloxicam 15 MG Tablet 1 tablet Orally Once a day Not-Taking Nicotine 21 MG/24HR Patch 24 Hour APPLY 1 PATCH TO SKIN TRANSDERMALLY ONCE A DAY Not-Taking Cyclobenzaprine HCl 10 MG Tablet 1 tablet at bedtime as needed Orally Once a day Not-Taking Furosemide 40 MG Tablet TAKE 1 TABLET BY MOUTH EVERY DAY Medication List reviewed and reconciled with the patient * Allergies: N .K.D.A.no[Allergies Verified] Objective: * Vitals: I nitials: st, Wt:228, Ht: 65, BMI:37.94, BP:126/78, HR:78, Oxygen sat %:97, RR:16, LMP: pati, Pain scale:0. * Examination: G eneral Examination: GENERAL APPEARANCE: w ell developed, well nourished, in no acute distress. SKIN: w arm and dry, no rashes. HEART: r egular rate and rhythm, no murmurs. LUNGS: r espirations regular and easy, clear to auscultation bilaterally. ABDOMEN: b owel sounds present, soft, nontender, nondistended, no masses palpable, no organomegaly . PSYCH: f ull range of affect/positive mood, good eye contact, speech clear, no auditory or visual hallucinations, thought content without suicidal ideation or delusions. Assessment: * Assessment: 1. T hyroid nodule - E04.1 (Primary) 2 . S creening for metabolic disorder - Z13.228 3 . L ipid screening - Z13.220 4 . S creening for deficiency anemia - Z13.0 5 . O besity (BMI 30-39.9) - E66.9 6 . Nutritional counseling - Z71.3 7 . N icotine dependence, unspecified, uncomplicated - F17.200 Plan: * Treatment: 2. S creening for metabolic disorder L AB: CMP 14 Comprehensive Metabolic Panel* (Ordered for 01/17/2024) L AB: Hemoglobin A1c* (Ordered for 01/17/2024) 3. L ipid screening L AB: Lipid Panel* (Ordered for 01/17/2024) 4. S creening for deficiency anemia L AB: CBC With Differential/Platelet* (Ordered for 01/17/2024) * Recommended Wellness and Pre vention Guidelines: * S tatus A lert L ast Done N ext Due A ction Taken N ONCOMPLIANT B reast cancer screening - 1 03/19/2023 - N ONCOMPLIANT C ervical cancer screening - 1 03/19/2023 - N ONCOMPLIANT C olorectal cancer screening - 1 03/19/2023 - N ONCOMPLIANT I nfluenza vaccine (over 50) - 1 03/19/2023 - * Procedure Codes: C HS07 Flu Vaccine [id number] BODY MASS INDEX [id number] BEHAV CHNG SMOKING 3-10 [id number] SELF-MGMT EDUC & TRAIN, 1 [id number] MEDICAL NUTRITION, INDIV, IN * Preventive Medicine: Counseling: S MOKING: Patient counselled on the dangers of tobacco use and urged to quit. . C are goal follow-up plan: BMI management provided Y es Above Normal BMI Follow-up L ifestyle education regarding diet * Follow Up: 3 Months * * ING COORDINATOR Sign off status: Completed true * Provider: Alonzo Chadwick, MSN, AGPCNP-BC Date: 03/19/2023 Generated for Printing/Faxing/eTransmitting on: 0 03/28/2024 04:11 PM TESTING COORDINATOR History and Physical Notes * HPI (History of Present Illness) Category Sub-Category Detail Notes Category Not es Interim History Was hospitalized No Emergency room visit No Depression Screening PHQ-9 Little inte rest or pleasure in doing things: Several days Feeling down, depressed, or hopeless: Se veral days Trouble falling or staying a sleep, or sleeping too much: More than half the days Feeling tired or having little energy: S everal days Poor appetite or overeating: Several day s Feeling bad about yourself o r that you are a failure, or have let yourself or your family down: Not at all Trouble concentrating on thi ngs, such as reading the newspaper or watching television: Several days Moving or speaking so slowly that other people could have noticed; or the opposite, being so fidgety or restless that you have been moving around a lot more than usual: Several days Thoughts that you would be b margy off or of hurting yourself in some way: Not at all Total Score: 8 Interpretation: Mild Depression Screening [place] Suicide Sev erity Rating Scale (LF) Do you want to initiate with: Screener form 1. Wish to be : Have you wished you were or wished you could go to sleep and not wake up?: No 2. Suicidal Thoughts: Have you actually had any thoughts of killing yourself?: No 6. Suicide Behavior Question: Have you ever done anything,started to do anything, or prepared to end your life?: No Interpretation:: Low Risk Flu vaccine Flu vaccine offered Flu Vaccine Declined: . Do Not Use CSSRS Interpretation and Follow Up Plan CSSRS Interpretation and Follow Up Plan CSSRS Screen documented using SF: Yes Moderate or High risk requir es selection of a follow up plan: CSSRS No/Low: intervention not needed at this time Preventative Health and Wellness follow-up Action Plans for Clinical Quality Measures: Breast Cancer Screening:: Discussed need for breast cancer screening. Patient declined. Cervical Cancer Screening:: Discussed need for cervical cancer screening. Referred to [facility] for same day scheduling. Colorectal Cancer Screening: : Discussed need for colorectal cancer screening. Patient declined. HIV Screening:: Discussed need for HIV s creening. Patient declined. Examination Category Sub-Category Detail Notes Category Not es General Examination GENERAL APPEARANCE: well dev eloped, well nourished, in no acute distress HEART: regular rate and rhy thm, no murmurs LUNGS: respirations regular and easy, clear to auscultation bilaterally ABDOMEN: bowel sounds present , soft, nontender, nondistended, no masses palpable, no organomegaly SKIN: warm and dry, no magda hes PSYCH: full range of affect /positive mood, good eye contact, speech clear, no auditory or visual hallucinations, thought content without suicidal ideation or delusions
--- OUTSIDE RECORDS SUMMARY | 2024-03-28 16:12 | XMS_ITS | Patient Health Record ---
Author Organization [facility] Address [address] [place] [address] Care Team Providers Care Shoulder Joiner Name Role Phone Drew Chadwick Primary Care Provider [phone] Vicenta Oneill Unavailable [phone] Allergies No Known Allergies Results Component Value Reference Range Notes Ultrasound : Thyroid Reviewed date:10/20/2023 05:10:51 PM Interpretation: Performing Lab: Notes/Report: Reason For Referral Reason Left ear fullness an d decreased hearing. Diagnosis 1 Ear fullness, left ( H93.8X2) Referral Organization [facility] Referring Provider First Name Drew Referring Provider Last Name Farrukh [facility]erred Provider [facility] Referred Provider Specialty Otolaryngolo gy General Notes NIKKI Barr Stephanie N 08/29/2023 11:56:46 AM > I spoke with Jonelle at [facility] who confirmed they accept [place]. Fax number [phone], NIKKI Barr Stephanie N 08/29/2023 03:21:17 PM >referral faxed. Confirmation pending.Momo RN, Stephanie N 08/29/2023 04:20:03 PM >referral was successfully faxed. Clinical Notes [facility], [facility], , [place] [address], Referral Priority Routine Medications Medication SIG (Take, Route, Frequency, Duration) Notes Start Date End Date Status Cane - as directed for decreased mobility due to chronic pain and joint issues as needed for 999 days 07/02/2021 Active Meloxicam 15 MG 1 tablet Orally Once a day for 30 day(s) Not-Taking Nicotine 21 MG/24HR APPLY 1 PATCH TO SKI N TRANSDERMALLY ONCE A DAY for 30 Not-Taking Cyclobenzaprine HCl 10 MG 1 tablet at be dtime as needed Orally Once a day for 30 day(s) Not-Taking Ibuprofen 600 MG 1 tablet with food o r milk as needed Orally up to Three times a day for 30 days 03/28/2020 Active Furosemide 40 MG TAKE 1 TABLET BY KIRSTY TH EVERY DAY for 90 Not-Taking Estrogens Conj Synthetic A Active Gabapentin 800 MG TAKE 1 TABLET BY KIRSTY TH FOUR TIMES A DAY for 30 days Active DULoxetine HCl 30 MG TAKE 1 CAPSULE BY [facility] TWICE A DAY for 30 Active Famotidine 20 MG TAKE 1 TABLET BY KIRSTY TH TWICE A DAY for 30 days Active Vitamin D Active Fluticasone Propionate 50 MCG/ACT 1 spray in each nostril Nasally Once a day for 30 days 02/15/2023 Active Social History Tobacco Use: Social History Observation Description Date Details (start date - stop date) Current Smoker NA - NA Sex Assigned At : Social History Observation Description Sex Assigned At Female Dont use, Tobacco Use/Smoking Question Answer Notes Are you a nonsmoker Alcohol Screen (Audit-C) Question Answer Notes Did you have a drink containing alcohol in the p ast year? No Tobacco Control (Standard) Question Answer Notes Tobacco use: Current smoker Problems Problem Type SNOMED Code ICD Code Onset Dates Problem Status W/U Status Risk Notes Problem Tobacco user (734118006) Nicotine dependence, unspecified, uncomplicated (F17.200) Active confirmed Problem 46644856 Other chronic pain (G89.29) Active confirmed Problem 643043266 Lumbago with sciatica, right side (M54.41) Active confirmed Problem Fibromyalgia (865778755) Fibromyalgia (M79.7) Active confirmed Problem 22791170 Paresthesia of skin (R20.2) Active confirmed Problem Osteoarthritis (509821619) Osteoarthritis (M19.90) Active confirmed Problem 072972780 Thyroid nodule (E04.1) Active confirmed Problem Restless legs syndrome (95213841) Restless leg syndrome (G25.81) Active confirmed Problem 603514300 Mild episode of recurrent major depressive disorder (F33.0) 11/10/19 22 Active confirmed Problem Difficulty sleeping (563775089) Sleep difficulties (G47.9) Active confirmed Problem 212396545 Obesity (BMI 30-39.9) (E66.9) Active confirmed Problem 3639724 Decreased mobility (R26.89) Active confirmed Problem 470224973 Memory changes (R41.3) Active confirmed Problem 415850105 Obesity, morbid (more than 100 lbs over ideal weight or BMI > 40) (E66.01) Active confirmed Vital Signs Heart Rate 78 /min 01/17/2024 Respiratory Rate 16 /min 01/17/2024 Blood pressure diastolic 78 mm Hg 01/17/2024 Oximetry 97 % 01/17/2024 Height 65 in 01/17/2024 Blood pressure systolic 126 mm Hg 01/17/2024 Weight 228 lbs 01/17/2024 BMI 37.94 kg/m2 01/17/2024 Encounters Encounter Location Date Provider Diagnosis [address] [address] 06/07/2023 Drew Chadwick Ringworm, body B35.4 ; Obesity (BMI 30-39.9) E66.9 ; Nutritional counseling Z71.3 and Nicotine dependence, unspecified, uncomplicated F17.[address] [address] 08/25/2023 Drew Chadwick Thyroid nodule E04.1 ; Ear fullness, left H93.8X2 ; Obesity (BMI 30-39.9) E66.9 ; Nutritional counseling Z71.3 and Nicotine dependence, unspecified, uncomplicated F17.[address] [address] 01/17/2024 Drew Chadwick Thyroid nodule E04.1 ; Screening for metabolic disorder Z13.228 ; Lipid screening Z13.220 ; Screening for deficiency anemia Z13.0 ; Obesity (BMI 30-39.9) E66.9 ; Nutritional counseling Z71.3 and Nicotine dependence, unspecified, uncomplicated F17.200 [facility] [address] [facility] [place] [address] 06/02/2023 Drew Chadwick [address] [address] 10/17/2023 Drew Chadwick Assessments Encounter Date Diagnosis (ICD Code) Assessment Notes Treatment Notes Treatment Clinical Notes Section Notes 08/25/2023 Ear fullness, left (ICD-10 - H93.8X2) 08/25/2023 Thyroid nodule (ICD-10 - E04.1) 06/07/2023 Obesity (BMI 30-39.9) (ICD-10 - E66.9) 06/07/2023 Ringworm, body (ICD-10 - B35.4) 01/17/2024 Thyroid nodule (ICD-10 - E04.1) 01/17/2024 Screening for metabolic disorder (ICD-10 - Z13.228) 01/17/2024 Lipid screening (ICD-10 - Z13.220) 06/07/2023 Nutritional counseling (ICD-10 - Z71.3) 08/25/2023 Obesity (BMI 30-39.9) (ICD-10 - E66.9) 08/25/2023 Nutritional counseling (ICD-10 - Z71.3) 06/07/2023 Nicotine dependence, unspecified, uncomplicated (ICD-10 - F17.200) 01/17/2024 Screening for deficiency anemia (ICD-10 - Z13.0) 01/17/2024 Obesity (BMI 30-39.9) (ICD-10 - E66.9) 08/25/2023 Nicotine dependence, unspecified, uncomplicated (ICD-10 - F17.200) 01/17/2024 Nutritional counseling (ICD-10 - Z71.3) 01/17/2024 Nicotine dependence, unspecified, uncomplicated (ICD-10 - F17.200) Plan Of Treatment Pending Test Test Name Order Date Ultrasound : Thyroid Sonography B-Scan 1 03/19/2023 Ultrasound : Thyroid 01/17/2024 Future Test Test Name Order Date Hemoglobin A1c* 01/17/2024 CBC With Differential/Platelet* 01/17/20 24 TSH+Free T4* 01/17/2024 Lipid Panel* 01/17/2024 CMP 14 Comprehensive Metabolic Panel* Insurance Providers Payer Name Payer Address Payer Phone Subscriber Number Group Number Insured Name Patient Relationship to Insured Coverage Start Date Coverage End Date [facility] Attn Claims Department [address] [place] [address] [id number] Irma Pantoja Self - patient is the insured 1 [facility] [employer] Attn Claims Department [address] [place] [address] [phone] [id number] Irma Pantoja Self - patient is the insured 1 [facility] [employer] Attn Claims Department [address] [place] [address] [phone] [id number] Irma Pantoja Self - patient is the insured 1 Medical (General) History Medical History History ICD Code Restless leg syndrome G25.81 Osteoarthritis M19.90 Fibromyalgia M79.7 Surgical History Surgery Date(Month/Year) ablation 2012 Hospitalization History Reason Date(Month/Year)
--- OUTSIDE RECORDS SUMMARY | 2024-03-28 16:12 | XMS_ITS ---
Author Organization [facility] Address [address] [place] [address] Care Team Providers Care Senior Librarian Name Role Phone Drew Chadwick Primary Care Provider Vicenta Oneill [phone] REASON FOR VISIT PCP/ Medications/ Antonio S PT Social History Sex Assigned At : Social History Observation Description Sex Assigned At Female Encounters Encounter Location Date Provider Diagnosis [address] [place] [address] 12/07/2023 Vicenta Oneill Plan Of Treatment No Information Progress Notes * Arpit PANTOJAB:1965 ( 58 yo F)Acc No.[id number]:12/07/2023 UNLOCKED PROGRESS NOTE Progress Notes Patient: Irma VALLEJO Provider: Khloe Oneill APRN :1965 A ge:58 Y S ex:Female Date:12/07/2023 Address:[address] [place], [place] [id number] Pcp:Drew Chadwick Subjective: * Chief Complaints: * 1 . PCP/ Medications/ Antonio S PT. * Medical History: Objective: * Vitals: Assessment: Plan: * Treatment: * * Electronic signature of Merced Oneill [id number] on 03/28/2024 at 04:11 PM PRESCHOOL EDUCATION DIRECTOR Sign off status: Pending * Provider: Khloe Oneill APRN Date: 1 Generated for Printi ng/Faxing/eTransmitting on: 0 03/28/2024 04:11 PM PRESCHOOL EDUCATION DIRECTOR
== END 2024-03-28 16:07 | disposition home or self-care (01) ==
LOC: ANHIMG 16:09
PROVIDERS: PCP Nurse Practitioner; Visit Provider Nurse Practitioner
DX: E04.2 Nontoxic multinodular goiter (principal)
CPT/HCPCS: 76536

== ENCOUNTER 2024-06-26 10:10 | Outpatient (CLI) | payer OTHER, SELFPAY ==
--- NOTE | ~2024-06-26 | US_ITS ---
EXAMINATION: US FNA w image guidance DATE: 06/26/2024 10:58 INDICATION: Thyroid nodule TECHNIQUE: A time-out was performed to verify the patient's name, date of , and procedure to be performed . The procedure and its benefits and risks were discussed with the patient. Risks specifically discus sed included bleeding and infection. The patient understood the risks and agreed to proceed. The neck was prepped and draped in the usual sterile manner. 3 mL 1% lidocaine was used for local anesthesia . 5 passes were made with a 25G needle into the lesion. Appropriate needle location was documented with continuous sonographic guidance. A sterile bandage was applied. There were no immediate compli cations. FINDINGS: Grayscale ultrasound images demonstrate biopsy needles advanced into a 3.5 cm TI RADS 4 left thyroid nodule. IMPRESSION: 1. Successful ultrasound-guided fine needle aspiration of a 3.5 cm TI RADS 4 left thyroid nodule. Reviewed, dictated and finalized at location A. IMPRESSION: 1. Successful ultrasound-guided fine needle aspiration of a 3.5 cm TI RADS 4 l eft thyroid nodule.
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
--- OUTSIDE RECORDS SUMMARY | 2024-06-26 10:25 | XMS_ITS | Clinical Summary ---
Author Organization [facility] Address [address] [place] [address] Care Team Providers Care Bass Singer Name Role Phone Daina Lehman APRN-ELECTRICAL SUPERINTENDENT Primary Care Provi bernardo Bimal Lind MD Unavailable [phone] Source Comments [facility],non-owned Affiliates and Associated Physician Practices is amultiple site organization consisting of ambulatory clinics and hospital sitesin [place], [place], [place] and [place]. This disclosure is being madepursuant to the Care Everywhere program and may not contain all information available regarding this patient. Last updated 17.[facility] Allergies Active Allergy Reactions Criticality Noted Date Comments Molds & Smuts Rhinitis,Other Medium 02/08/2018 Medications * Be aware that medications may not be up to date on this document. Alwaysverify current medications with the patient. folic acid (FOLVITE) 1 MG tablet Take 1 mg by mouth once daily 0 Active traMADol (ULTRAM) 50 MG tablet Take 50-100 mg by mouth every 6 hours as needed 0 Active meloxicam (MOBIC) 15 MG tabletIndication s:Arthralgia, unspecified joint Take 1 (one) tablet by mouth once daily 30 tablet 2 1 Active gabapentin (NEURONTIN) 400 MG capsule Take 800 mg by mouth 4 times daily Active furosemide (LASIX) 20 MG tablet Take 20 mg by mouth once daily Active dapsone (ACZONE) 5 % gelIndications:A cne vulgaris Apply to entire affected face daily 60 g 3 2 Active tretinoin (RETIN-A) 0.025 % creamIndications :Acne vulgaris Pea sized amount to entire face at night. 30 days supply. 45 g 3 2 Active mupirocin (BACTROBAN) 2 % ointmentIndicati ons:Staphylococc al infection Apply to affected area on nose daily 30 g 2 Active spironolactone (ALDACTONE) 100 MG tabletIndication s:Acne vulgaris Take 1 (one) tablet by mouth once daily 30 tablet 1 2 Active Active Problems Problem Noted Date Diagnosed Date Acne vulgaris 04/15/2021 Staphylococcal infection 04/15/2021 High risk medications (not anticoagulants) long- term use 04/15/2021 Dizziness and giddiness 12/31/2012 Immunizations Immunization Administration Dates Next Due INFLUENZA VACCINE 12/18/2020 [...] = 0.6 oz pur e alcohol) Occasionally Comments No Sex and Gender Information Value Date Recorded Sex Assigned at Not on file Legal Sex Female 6:00 AM ATTENDING RADIOLOGIST Gender Identity Not on file Sexual Orientation Not on file Last Filed Vital Signs Vital Sign Reading Time Taken Comments Blood Pressure 108/78 12/25/2019 8:34 AM ATTENDING RADIOLOGIST Pulse 80 12/25/2019 8:34 AM ATTENDING RADIOLOGIST Temperature 37.2 C (99 F) 12/25/2019 8:34 AM ATTENDING RADIOLOGIST Respiratory Rate 22 12/31/2012 1:01 PM ATTENDING RADIOLOGIST Oxygen Saturation 100% 04/18/2019 12:57 PM CDT Inhaled Oxygen Concentration - - Weight 106.1 kg (234 lb) 12/25/2019 8:34 AM ATTENDING RADIOLOGIST Height 165.1 cm (5' 5 ) 12/25/2019 8:34 AM ATTENDING RADIOLOGIST Body Mass Index 38.94 12/25/2019 8:34 AM ATTENDING RADIOLOGIST Plan of Treatment Health Maintenance Due Date [...] 50+ (1 of 2 - PCV) 10/05/1986 ZOSTER VACCINE (1 of 2) 10/05/2017 COVID-19 VACCINE ( - 2023-2 5 season) 2023 DEPRESSION SCREENING 02/08/2024 INFLUENZA VACCINE (Season Ended) 2024 12/19/19 21 PAP SMEAR 11/20/2024 11/20/2021 HIB VACCINE Aged Out No longer eligi ble based on patient's age to complete this topic HPV VACCINE Aged Out No longer eligi ble based on patient's age to complete this topic MENINGOCOCCAL (Group B) VACC INE SHARED DECISION-MAKING Aged Out No longer eligibl e based on patient's age to complete this topic MENINGOCOCCAL GROUPS A/C/Y/W VACCINE Aged Out No longer eligible b ased on patient's age to complete this topic Insurance Care Teams Bass Singer Relationship Specialty Start Date End Date Daina Lehman APRN-FREDERICK PCP - General 04/18/19 Bimal Lind MD Internal Medicine 04/18/19
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
--- OUTSIDE RECORDS SUMMARY | 2024-06-26 10:25 | XMS_ITS | Encounter Summary ---
Author Organization [facility] Address [address] [place] [address] Care Team Providers Care Restorer Lace And Textiles Name Role Phone Jude Higgins MD Primary Care Provider [phone] Daina Lehman NP Primary Care Provider Unav ailable None, Provider Primary Care Provider Unavaila ble Encounter Details Date Type Department Care Team (Late st Contact Info) Description 05/18/2017 Abstract [facility] [address] [facility] [place] [id number] , Generic Conversion, Social History Tobacco Use Types Packs/Day Years Used Date Smoking Tobacco: Never Assessed Comments Unknown Sex and Gender Information Value Date Recorded Sex Assigned at Female 12/27/2018 1:33 PM MACHINE PRINTER HOSE Legal Sex Female 9:23 PM CDT Gender Identity Female 12/27/2018 1:33 PM MACHINE PRINTER HOSE Sexual Orientation Straight 12/27/2018 1: 33 PM MACHINE PRINTER HOSE documented as of this encounter Plan of Treatment Not on file documented as of this encounter Visit Diagnoses Not on filedocumented in this encounter Care Teams Restorer Lace And Textiles Relationship Specialty Start Date End Date Jude Higgins MD PCP - General INTERNAL MEDICINE 02/08/18 11/13/19 Daina Lehman NP PCP - General NURSE PRACTITIONER 11/14/19 03/08/21 None, Provider, PCP - General UNKNOWN PHYSICIAN SPECIALTY 04/29/24 documented as of this encounter
--- OUTSIDE RECORDS SUMMARY | 2024-06-26 10:25 | XMS_ITS | Data Portability ---
Author Organization [facility] [employer], Main Office Address [address] [place] [address] Assessment Encounter Date Assessment Date Assessment LastModified [...] no auth required 2023 024 [email or web address] 25 [facility], [address] [place], [address], 09:14:23 Medication Orders None recorded. Patient TargetsNo targets recorded. Patient InstructionsNo instructions recorded. Reason for Referral None Reported. 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 Medical Equipment None [...] and Address Organization Details Last Updated DateTime 296017. 69 g 36.2 kg/m2 167.64 cm 98 [degF] 97 % 97 % 72 /min 120 mm[Hg] 72 mm[Hg] Alyse Buchanan CMA [facility] [employer] 14:06:13 Date Recorded Heart rate Respiratory rate Provider N [email or web address] and Address Organization Details Last Updated DateTime 06/13/2023 72 /min 15 /min Killian Guzman MD [address] [facility] [address], [place], [address], [facility] Staff Ranker 06/13/2023 14:25:56 Social History Question Answer Notes LastModified by Organizat ion Details LastModified Time Tobacco Smoking Status Current Every Day Smoker Alyse Buchanan CMA null, [facility] [employer] 06/13/2023 14:09:46 Is Blood Transfusion Acceptable In An Emergency? Yes [email or web address] Information not available 06/13/2023 What Is Your Level Of Caffeine Consumption? None [email or web address] Information not available 06/13/2023 In The 14 Days Before Symptom Onset, Have You Had Close Contact With A Laboratory-confirm ed COVID-19 While That Case Was Ill? No Information n ot available 06/13/2023 In The 14 Days Before Symptom Onset, Have You Had Close Contact With A Person Who Is Under Investigation For COVID-19 While That Person Was Ill? No Information not available 06/13/2023 What Type Of Diet Are You Following? REGULAR [email or web address] Information n ot available 06/13/2023 What Is The Highest Grade Or Level Of School You Have Completed Or The Highest Degree You Have Received? [id number] Information not available 06/13/2023 Do You Have A Humidifier? No [email or web address] Information not available 06/13/2023 How Many Children Do You Have? 2 [email or web address] Information not available 06/13/2023 Do You Have Any Pets? Yes 4 Cats [email or web address] Information not available 06/13/2023 What Is Your Relationship Status? [email or web address] Information not available 06/13/2023 Do You Use Your Seat Belt Or Car Seat Routinely? Yes [email or web address] Information not available 06/13/2023 Do You Have Smoke And Carbon Monoxide Detectors In Your Home? Yes [email or web address] Information not available 06/13/2023 Do You Use Sunscreen Routinely? Yes [email or web address] Information not available 06/13/2023 How Many Years Have You Smoked Tobacco? 40 Information not available 06/13/2023 Have You Recently Traveled Abroad? No [email or web address] Information not available 06/13/2023 Do You Have Any Dietary Restrictions? No Information not available 06/13/2023 Sex: Unknown Functional Status Question Answer Note LastModified by Organizat ion Details LastModified Time Do you use any illicit or recreational drugs? No Information not available 06/13/2023 What is your level of alcohol consumption? None [email or web address] Information not available 06/13/2023 Are you currently employed? No [email or web address] Information not available 06/13/2023 What is your exercise level? None [email or web address] Information not available 06/13/2023 Mental Status Question Answer Note LastModified by Organization D etails LastModified Time Do you feel stressed (tense, restless, nervous, or anxious, or unable to sleep at night)? [id number] [email or web address] Information not available 06/13/2023 Family History Relationship Description Onset Age of this Age Resolved Age Notes LastModified by Organization Details LastModified Time Father Malignant neoplasm of bone [email or web address] Not available 2023 10:50:50 Father Gastroesopha geal reflux disease [email or web address] Not available 2023 14:24:08 Mother Malignant tumor of thyroid gland [email or web address] Not available 2023 14:23:09 Mother Depressive disorder [email or web address] Not available 2023 14:24:30 Paternal Aunt Malignant neoplasm of ovary [email or web address] Not available 2023 14:23:24 [...] SNOMED-CT Code Diagnosis ICD10 Code Diagnosis Note [id number] Killian Guzman MD [facility] [place] [id number] 0 06/13/2023 13:54:08 06/14/2023 08:10:04 Sleep apnea 53411889 G47.30 G47.33 G47.36 G47.61 Health Concerns Section Related Observation LastModified by Organization Detai ls LastModified Time None Recorded Concern Status LastModified by Organization Details LastModified Time None Recorded Advance Directives Directive None Recorded Payers Encounter Date Sequence Insurance Name Policy Number Policy Faust Covered Member ID Faust Member ID Guarantor Name 06/13/2023 1 [facility] ON OR AFTER 08/07/20 (MEDICAID REPLACEMENT - HMO) Luis Asirisha Pantoja [id number] Irma Pantoja Notes Date Note Type Note [...] chance of dozing. Killian Guzman MD [address] [facility], [place] [address], [place], [address], [facility] [employer] [facility] 06/13/2023 14:42:16 OBGyn Episode No OBEpisode recorded.
== END 2024-06-26 10:11 | disposition home or self-care (01) ==
LOC: ANHIMG 10:11
PROVIDERS: PCP Nurse Practitioner; Visit Provider Internal Medicine
DX: E04.1 Nontoxic single thyroid nodule (principal)
CPT/HCPCS: 10005; 88172; 88173; 88305

== ENCOUNTER 2024-09-11 14:25 | Outpatient (CLI) | payer OTHER, SELFPAY ==
--- NOTE | ~2024-09-11 | MR_ITS ---
MRI of the brain Clinical History: Multiple sclerosis Technique: Axial and sagittal T1-weighted images were acquired. These were followed by axial T2-weigh luis alfredo, diffusion weighted, gradient, and FLAIR images. Following intravenous administration of 20 cc Mu ltiHance gadolinium, T1-weighted fat-sat imaging was performed in the axial, coronal, and sagittal pl anes. Findings: No acute infarct, intracranial hemorrhage or mass lesion seen. There are a few focal white matter lesions in the subcortical white matter, suggestive of chronic microvascular ischemic change r ather than demyelinating disease. Ventricles and subarachnoid spaces are unremarkable. Orbits are unremarkable. Paranasal sinuses are c lear. There is minimal lateral mastoid effusions. Major intracranial flow voids appear intact. Sagittal midline structures are intact. No abnormal postcontrast enhancement identified. IMPRESSION: A few subcortical white matter lesions are most compatible with mild chronic microvascular ischemic c hange rather than demyelinating disease. No other significant findings. Reviewed, dictated and finalized at [facility]. IMPRESSION: A few subcortical white matter lesions are most compatible with mild chronic mi crovascular ischemic change rather than demyelinating disease. No other significant findings.
--- OUTSIDE RECORDS SUMMARY | 2024-09-11 14:33 | XMS_ITS | Clinical Summary ---
Author Organization [facility] [employer] Address [address] [place] [address] Care Team Providers Care Senior Mechanical Estimator Name Role Phone Daina Lehman APRN-[employer] Primary Care Provi bernardo Bimal Lind MD Unavailable [phone] Source Comments [facility],non-owned Affiliates and Associated Physician Practices is amultiple site organization consisting of ambulatory clinics and hospital sitesin [place], [place], [place] and [place]. This disclosure is being madepursuant to the Care Everywhere program and may not contain all information available regarding this patient. Last updated 17.[facility] [employer] 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 Gender Identity Not on file Sexual Orientation Not on file Last Filed Vital Signs Vital Sign Reading Time Taken Comments Blood Pressure 108/78 12/25/2019 8:34 AM COMPUTER EDUCATION TEACHER Pulse 80 12/25/2019 8:34 AM COMPUTER EDUCATION TEACHER Temperature 37.2 C (99 F) 12/25/2019 8:34 AM COMPUTER EDUCATION TEACHER Respiratory Rate 22 12/31/2012 1:01 PM COMPUTER EDUCATION TEACHER Oxygen Saturation 100% 04/18/2019 12:57 PM CDT Inhaled Oxygen Concentration - - Weight 106.1 kg (234 lb) 12/25/2019 8:34 AM COMPUTER EDUCATION TEACHER Height 165.1 cm (5' 5) 12/25/2019 8:34 AM COMPUTER EDUCATION TEACHER Body Mass Index 38.94 12/25/2019 8:34 AM COMPUTER EDUCATION TEACHER Plan of Treatment Health Maintenance Due Date [...] VACCINE (1 - 2023-2 5 season) 2023 DEPRESSION SCREENING 02/08/2024 INFLUENZA VACCINE (#1) 2024 12/18/2020 PAP SMEAR 11/20/2024 11/20/2021, 11/20/2021 HIB VACCINE Aged Out No longer eligi ble based on patient's age to complete this topic HPV VACCINE Aged Out No longer eligi ble based on patient's age to complete this topic MENINGOCOCCAL (Group B) VACCINE SHARED DECISION-MAKING Aged Out No longer eligible based on patient's age to complete this topic MENINGOCOCCAL GROUPS A/C/Y/W VACCINE Aged Out No longer eligible b ased on patient's age to complete this topic [place] [address] [address] [place] [id number] Care Teams Senior Mechanical Estimator Relationship Specialty Start Date End Date Daina Lehman APRN-[employer] PCP - General 04/18/19 Bimal Lind MD Internal Medicine 04/18/19
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
--- OUTSIDE RECORDS SUMMARY | 2024-09-11 14:33 | XMS_ITS | Clinical Summary ---
Author Organization [facility] Address [address] [place] [address] Care Team Providers Care Automotive Glass Specialist Name Role Phone None, Provider MD Primary [...] 04/19/2017 Restless legs syndrome 04/19/2017 Spina bifida ([facility]) 04/19/2017 Resolved Problems Problem Noted Date [...] Sex Assigned at Female 12/27/2018 1:33 PM ANIMATOR Legal Sex Female 9:23 PM CDT Gender Identity Female 12/27/2018 1:33 PM ANIMATOR Sexual Orientation Straight 12/27/2018 1: 33 PM ANIMATOR Occupation Industry Job Start Date Job End [...] 5:13 PM CDT Height 167.6 cm (5' 6) 04/29/2024 5:13 PM CDT Body Mass Index [...] 6:32 PM CDT IMAGING STUDIES: MG SHIELA FLOWERS DATE: 12/07/2018 1:32 PM HISTORY: 6 month [...] VE NON-REACTI VE 04/25/2018 12:51 AM CDT [facility] HEP B CORE TOTAL AB NON-REACTI VE NON-REACTI VE 04/25/2018 12:51 AM CDT [facility] HEP B SURFACE AB NON-REACTI VE 04/25/2018 7:24 AM CDT [facility] HAV IGM NON-REACTI VE NON-REACTI VE 04/25/2018 12:51 AM CDT [facility] HEPATITIS C AB NON-REACTI VE NON-REACTI VE 04/25/2018 12:51 AM CDT [facility] 04/24/2018 3:19 PM CDT 04/24/2018 6:14 PM CDT us Generic Conversion Md [facility] Final R esult [facility] [address] [place] [address], from Last 3 Months or Most Recently Relevant to Health Maintenance Insurance [employer] [facility] [address] Care Teams Automotive Glass Specialist Relationship Specialty Start Date End Date None, Provider, MD PCP - General UNKNOWN PHYSICIAN SPECIALTY 04/29/24
--- OUTSIDE RECORDS SUMMARY | 2024-09-11 14:33 | XMS_ITS | Encounter Summary ---
Author Organization [facility] Address [address] [place] [address] Care Team Providers Care Metal Finisher Name Role Phone Jude Higgins MD Primary Care Provider [phone] Daina Lehman NP Primary Care Provider Unav ailable None, Provider Primary Care Provider Unavaila ble Encounter Details Date Type Department Care Team (Late st Contact Info) Description 05/18/2017 Abstract [facility] CONVERSION [id number] [facility] [place] [id number] , Generic Conversion, Social History Tobacco Use Types Packs/Day Years Used Date Smoking Tobacco: Never Assessed Comments Unknown Sex and Gender Information Value Date Recorded Sex Assigned at Female 12/27/2018 1:33 PM INSPECTOR ELECTROMECHANICAL Legal Sex Female 9:23 PM CDT Gender Identity Female 12/27/2018 1:33 PM INSPECTOR ELECTROMECHANICAL Sexual Orientation Straight 12/27/2018 1: 33 PM INSPECTOR ELECTROMECHANICAL documented as of this encounter Plan of Treatment Not on file documented as of this encounter Visit Diagnoses Not on filedocumented in this encounter Care Teams Metal Finisher Relationship Specialty Start Date End Date Jude Higgins MD PCP - General INTERNAL MEDICINE 02/08/18 11/13/19 Daina Lehman NP PCP - General NURSE PRACTITIONER 11/14/19 03/08/21 None, Provider, PCP - General UNKNOWN PHYSICIAN SPECIALTY 04/29/24 documented as of this encounter
== END 2024-09-11 14:26 | disposition home or self-care (01) ==
PROVIDERS: PCP Internal Medicine; Visit Provider Psychiatry & Neurology Neurology
DX: R90.82 White matter disease, unspecified (principal); G35 Multiple sclerosis
CPT/HCPCS: 70553; A9577

== ENCOUNTER 2024-10-09 12:30 | Outpatient (RCR) | payer OTHER, SELFPAY ==
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
--- NOTE | 2024-07-20 10:23 | OPREHPOC ---
Outpatient Therapy Plan of Care This is a Multidisciplinary Plan of Care that may contain components documented by all disciplines (PT, OT, and ST.) PT Problem 1 PT Problem #1 Knowledge Deficit PT Goal 1 Goal / Goal Update Pt will be independent in HEP Pt will verbalize understanding of diagnosis and prognosis Target Visit 8 PT Problem 2 PT Problem #2 Pain PT Goal 1 Goal / Goal Update Pt will report lowest pain rating at 0/10 to show improvement in overall discomfort Target Visit 8 PT Goal 2 Goal / Goal Update Pt will report greatest pain level at 3/10 or less to improve ADLs and activities Target Visit 16 PT Problem 3 PT Problem #3 Impaired Endurance PT Goal 1 Goal / Goal Update Pt will demonstrates ability to adopt and maintain appropriate postures 50% of the time in clinic with or without cueing. Target Visit 8 PT Problem 4 PT Problem #4 Impaired Range of Motion PT Goal 1 Goal / Goal Update Pt will show ROM cervical spine of 75% or greater with minimal discomfort Target Visit 8 PT Goal 2 Goal / Goal Update Pt will demonstrate ROM cervical spine WNL without discomfort. Target Visit 16
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
--- NOTE | 2024-08-27 15:39 | OPREHPOC ---
Outpatient Therapy Plan of Care This is a Multidisciplinary Plan of Care that may contain components documented by all disciplines (PT, OT, and ST.) PT Problem 1 PT Problem #1 Knowledge Deficit PT Goal 1 Goal / Goal Update Pt will be independent in HEP Pt will verbalize understanding of diagnosis and prognosis Target Visit 8 Progress Met PT Problem 2 PT Problem #2 Pain PT Goal 1 Goal / Goal Update Pt will report lowest pain rating at 0/10 to show improvement in overall discomfort - improved to 1/ 10 Target Visit 8 Progress Partially Met PT Goal 2 Goal / Goal Update Pt will report greatest pain level at 3/10 or less to improve ADLs and activities Target Visit 16 PT Problem 3 PT Problem #3 Impaired Endurance PT Goal 1 Goal / Goal Update Pt will demonstrates ability to adopt and maintain appropriate postures 50% of the time in clinic with or without cueing. - progressing Target Visit 8 Progress Partially Met PT Problem 4 PT Problem #4 Impaired Range of Motion PT Goal 1 Goal / Goal Update Pt will show ROM cervical spine of 75% or greater with minimal discomfort Target Visit 8 Progress Met PT Goal 2 Goal / Goal Update Pt will demonstrate ROM cervical spine WNL without discomfort. Target Visit 16 PT Problem 5 PT Problem #5 Pain PT Goal 1 Goal / Goal Update Resolution of the catch sensation with motions for at least 2 weeks. Target Visit 16
--- NOTE | 2024-09-21 15:04 | PCPTNOTE ---
Pt called the front office administrator to cancel her therapy appointment today due to her boyfriend having a MD appointment.
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
== END 2024-10-09 13:37 | disposition home or self-care (01) ==
LOC: ANHHIPT 12:30
PROVIDERS: PCP Nurse Practitioner; Visit Provider Internal Medicine
DX: M54.2 Cervicalgia (principal)
CPT/HCPCS: 97014; 97110; 97112; 97140; 97161; 97750; G0283

== ENCOUNTER 2024-12-13 13:01 | Outpatient (CLI) | payer OTHER, SELFPAY ==
--- OUTSIDE RECORDS SUMMARY | 2023-11-08 07:20 | XMS_ITS ---
Author Organization [facility] Address [address] [place] [address] Care Team Providers Care Shop Mechanic Helper Name Role Phone Jeet Victor Primary Care Provider Drew Chadwick [phone] REASON FOR VISIT r/s from 10/31 Social History Sex Assigned At : Social History Observation Description Sex Assigned At Female Encounters Encounter Location Date Provider Diagnosis [address] [place] [address] 11/08/2023 Drew Chadwick Plan Of Treatment No Information Progress Notes * Arpit PANTOJAB:1965 ( 59 yo F)Acc No.[id number]:11/08/2023 UNLOCKED PROGRESS NOTE Progress Notes Patient: Irma VALLEJO Provider: BREANA Gentile, AGPCNP-BC :1965 A ge:58 Y S ex:Female Date:11/08/2023 Address:[address] [place], [place] [id number] Pcp:Jeet Victor Subjective: * Chief Complaints: * 1 . R/s from 10/31. * Medical History: Objective: * Vitals: Assessment: Plan: * Treatment: * * Electronic signature of Manny Chadwick APRN, [id number] on 12/13/2024 at 07:53 PM CHEF DE CUISINE Sign off status: Pending * Provider: Alonzo Chadwick, BREANA, AGPCNP-BC Date: Generated for Printing/Faxing/eTransmitting on: 02/13/2024 07:53 PM CHEF DE CUISINE
--- OUTSIDE RECORDS SUMMARY | 2023-11-16 07:00 | XMS_ITS ---
Author Organization [facility] Address [address] [place] [address] Care Team Providers Care Intermission Coordinator Name Role Phone Jeet Victor Primary Care Provider Drew Chadwick [phone] REASON FOR VISIT r/s from 11/08/23, f/u Social History Sex Assigned At : Social History Observation Description Sex Assigned At Female Encounters Encounter Location Date Provider Diagnosis [facility] [place] [address] 11/16/2023 Drew Chadwick Plan Of Treatment No Information Progress Notes * Arpit PANTOJAB:1965 ( 59 yo F)Acc No.[id number]:11/16/2023 UNLOCKED PROGRESS NOTE Progress Notes Patient: Irma VALLEJO Provider: BREANA Gentile, AGPCNP-BC :1965 A ge:58 Y S ex:Female Date:11/16/2023 Address:[address] [place], [place] [id number] Pcp:Jeet Victor Subjective: * Chief Complaints: * 1 . R/s from 11/08/23, f/u. * Medical History: Objective: * Vitals: Assessment: Plan: * Treatment: * * Electronic signature of Manny Chadwick APRN, [id number] on 12/13/2024 at 07:53 PM GLASS EDGER Sign off status: Pending * Provider: BREANA Gentile, AGPCNP-BC Date: 1 Generated for Printing/Faxing/eTransmitting on: 02/13/2024 07:53 PM GLASS EDGER
--- OUTSIDE RECORDS SUMMARY | 2023-11-29 09:00 | XMS_ITS ---
Author Organization [facility] Address [address] [place] [address] Care Team Providers Care Traffic Technician Name Role Phone Jeet Victor Primary Care Provider Drew Chadwick [phone] REASON FOR VISIT LM to R/S -mlr follow up Social History Sex Assigned At : Social History Observation Description Sex Assigned At Female Encounters Encounter Location Date Provider Diagnosis [address] [place] [address] 11/29/2023 Drew Chadwick Plan Of Treatment No Information Progress Notes * Arpit PANTOJAB:1965 ( 59 yo F)Acc No.[id number]:11/29/2023 UNLOCKED PROGRESS NOTE Progress Notes Patient: Irma VALLEJO Provider: BREANA Gentile, AGPCNP-BC :1965 A ge:58 Y S ex:Female Date:11/29/2023 Address:[address] [place], [place] [phone] Pcp:Jeet Victor Subjective: * Chief Complaints: * 1 . LM to R/S -mlr follow up. * Medical History: Objective: * Vitals: Assessment: Plan: * Treatment: * * Electronic signature of Manny Chadwick APRN, [id number] on 12/13/2024 at 07:54 PM BALLAST CLEANING OPERATOR Sign off status: Pending * Provider: Alonzo Chadwick, BREANA, AGPCNP-BC Date: Generated for Printing/Faxing/eTransmitting on: 02/13/2024 07:54 PM BALLAST CLEANING OPERATOR
--- OUTSIDE RECORDS SUMMARY | 2023-12-07 07:40 | XMS_ITS ---
Author Organization [facility] Address [address] [place] [address] Care Team Providers Care Analysis Specialist Name Role Phone Jeet Victor Primary Care Provider Vicenta Oneill [phone] REASON FOR VISIT PCP/ Medications/ Antonio S PT Social History Sex Assigned At : Social History Observation Description Sex Assigned At Female Encounters Encounter Location Date Provider Diagnosis [address] [place] [address] 12/07/2023 Vicenta Oneill Plan Of Treatment No Information Progress Notes * Luis A PANTOJAaDOB:1965 ( 59 yo F)Acc No.[id number]:12/07/2023 UNLOCKED PROGRESS NOTE Progress Notes Patient: Irma VALLEJO Provider: Khloe Oneill APRN :1965 A ge:58 Y S ex:Female Date:12/07/2023 Address:[address] [place], [place] [phone] Pcp:Jeet Victor Subjective: * Chief Complaints: * 1 . PCP/ Medications/ Antonio S PT. * Medical History: Objective: * Vitals: Assessment: Plan: * Treatment: * * Electronic signature of Merced Oneill , [id number] on 12/13/2024 at 07:54 PM SEAT COVERS TRIMMER Sign off status: Pending * Provider: Khloe Oneill APRN Date: Generated for Printi ng/Faxing/eTransmitting on: 02/13/2024 07:54 PM SEAT COVERS TRIMMER
--- OUTSIDE RECORDS SUMMARY | 2023-12-14 07:00 | XMS_ITS ---
Author Organization [facility] Address [address] [place] [address] Care Team Providers Care Rn Field Case Manager Name Role Phone Jeet Victor Primary Care Provider [phone] Vicenta Oneill [phone] REASON FOR VISIT r/s from 12/06 Social History Sex Assigned At : Social History Observation Description Sex Assigned At Female Encounters Encounter Location Date Provider Diagnosis [address] [place] [address] 12/14/2023 Vicenta Oneill Plan Of Treatment No Information Progress Notes * Luis A PANTOJAaDOB:1965 ( 59 yo F)Acc No.[id number]:12/14/2023 UNLOCKED PROGRESS NOTE Progress Notes Patient: Irma VALLEJO Provider: Khloe Oneill APRN :1965 A ge:58 Y S ex:Female Date:12/14/2023 Address:[address] [place], [place] [phone] Pcp:Jeet Victor Subjective: * Chief Complaints: * 1 . R/s from 12/06. * Medical History: Objective: * Vitals: Assessment: Plan: * Treatment: * * Electronic signature of Merced Oneill , [id number] on 12/13/2024 at 07:53 PM BRICKMASON Sign off status: Pending * Provider: Khloe Oneill APRN Date: 02/12/2023 Generated for Printi ng/Faxing/eTransmitting on: 02/13/2024 07:53 PM BRICKMASON
--- NOTE | 2024-12-13 14:30 | NEURO_ITS ---
Clinical note: Patient 59-year-old with history of lower back pain and numbness and weakness in both lower limbs.. No history of diabetes mellitus. And a brief neurological examination no focal muscle wasting or fasciculations were noted. This study is being performed for evaluation of peripheral neurological conditions. The results are given below. Summary of findings: 1. Left and right peroneal motor distal latencies, amplitude and conduction velocity were within normal limits. There is no focal slowing across the fibular head. 2. Left and right tibial motor distal latencies and conduction velocity were normal limits. The amplitudes were close to lower end of the normal range. 3. Left and right medial and sural sensory distal latencies and amplitudes were within normal limits. 4. Left and right H reflex latencies and amplitudes were within acceptable normal limits. 5. EMG examination performed were S muscles lower limbs and related paraspinal muscles in L3-S1 distribution were examined. No denervation changes were seen. Motor unit amplitude and conduction velocities were within acceptable normal limits. Impression: EMG nerve can study of both upper limbs were within normal limits. A normal examination does not rule out possibility of Lumbosacral radiculopathy or small fiber polyneuropathy. If symptoms persist, clinical and radiographic correlation and follow-up study in future may be helpful. Aung Hernandez MD,FAAN, FAANEM Neurology / Electrodiagnostic Medicine Nerve Conduction Studies Motor Nerve Results ? Latency Amplitude F-Lat Segment Distance CV Comment Site (ms) (mV) (ms) (cm) (m/s) Left Peroneal (EDB) Motor Ankle 3.8 5.1 Bel Fib Head 10.5 4.1 Bel Fib Head-Ankle 290 43 Pop Fossa 11.7 4.9 Pop Fossa-Bel Fib Head 70 58 Right Peroneal (EDB) Motor Ankle 4.9 5.4 Bel Fib Head 11.7 4.7 Bel Fib Head-Ankle 290 43 Pop Fossa 12.9 4.8 Pop Fossa-Bel Fib Head 70 58 Left Tibial (AHB) Motor Ankle 4.1 5.0 Knee 13.6 3.2 Knee-Ankle 390 41 Right Tibial (AHB) Motor Ankle 3.8 5.2 Knee 13.2 4.2 Knee-Ankle 380 40 Sensory Nerve Results ? Latency (Peak) Amplitude (P-P) Segment Distance CV Comment Site (ms) (?V) (cm) (m/s) Left Medial Plantar (Ortho) Sensory Great Toe-Med Mall 3.1 9 Great Toe-Med Mall 100 32 Right Medial Plantar (Ortho) Sensory Great Toe-Med Mall 3.6 20 Great Toe-Med Mall 110 31 Left Sural Sensory Calf-Lat Mall 3.3 13 Calf-Lat Mall 120 36 Right Sural Sensory Calf-Lat Mall 3.7 11 Calf-Lat Mall 120 32 H-Reflex Results ? M-Lat H Lat H Peak-Peak Amp M Peak-Peak Amp H-M Lat Site (ms) (ms) mV mV (ms) Left Tibial H-Reflex Pop Fossa - 32.8 3.7 - - Right Tibial H-Reflex Pop Fossa - 33.6 3.5 - - Electromyography ?Side Muscle Nerve Ins Act Fibs Psw Amp Dur Recrt Comment Right BicepsFemS Sciatic Nml Nml Nml Nml Nml Nml Right Semimembranosus Sciatic Nml Nml Nml Nml Nml Nml Right AntTibialis Dp Br Fibular Nml Nml Nml Nml Nml Nml Right Gastroc Tibial Nml Nml Nml Nml Nml Nml Right VastusMed Femoral Nml Nml Nml Nml Nml Nml Right RectFemoris Femoral Nml Nml Nml Nml Nml Nml Right GluteusMax InfGluteal Nml Nml Nml Nml Nml Nml Right TensorFascLat SupGluteal Nml Nml Nml Nml Nml Nml Left BicepsFemS Sciatic Nml Nml Nml Nml Nml Nml Left Semimembranosus Sciatic Nml Nml Nml Nml Nml Nml Left AntTibialis Dp Br Fibular Nml Nml Nml Nml Nml Nml Left Gastroc Tibial Nml Nml Nml Nml Nml Nml Left VastusMed Femoral Nml Nml Nml Nml Nml Nml Left RectFemoris Femoral Nml Nml Nml Nml Nml Nml Left GluteusMax InfGluteal Nml Nml Nml Nml Nml Nml Left TensorFascLat SupGluteal Nml Nml Nml Nml Nml Nml Left L4 Parasp Rami Nml Nml Nml Nml Nml Nml Left L5 Parasp Rami Nml Nml Nml Nml Nml Nml Right L4 Parasp Rami Nml Nml Nml Nml Nml Nml Right L5 Parasp Rami Nml Nml Nml Nml Nml Nml
--- OUTSIDE RECORDS SUMMARY | 2024-12-13 19:53 | XMS_ITS | Data Portability ---
Author Organization [facility] [place] Address [address] [place] [address] Care Team Providers Care Dormitory Maid Name Role Phone BRUNILDA EDWARDS Primary Care Provider Assessment Encounter Date Assessment Date Assessment LastModified by Organization Details LastModified Time 10/09/2021 10/09/2021 Send T-therapy to [facility] nightly [facility] with 4wks med check [email or web address] Not available 10/09/2021 13:01:01 11/20/2021 11/20/2021 Annual gynecological exam performed. Patient will come back in a year unless there are new symptoms. Not available 11/20/2021 15:21:47 06/21/2023 06/21/2023 Annual gynecological exam performed. Patient will come back in a year unless there are new symptoms. [email or web address] Not available 06/21/2023 15:25:10 08/29/2024 08/29/2024 Annual gynecological exam performed. Patient will come back in a year unless there are new symptoms. [email or web address] Not available 08/29/2024 15:13:19 Plan of Treatment Reminders Order Date Submit Date Provider Last Modified By Organization Details Last Modified Time Details Appointments None recorded. Lab testosteron e, total, serum 2021 022 [facility] (Lab), [address], [place], [address], 07:33:56 vitamin D, 25-hydroxy, total, serum 2021 022 [facility] (Lab), [address], [place], [address], 2 07:33:57 hormone panel, serum or plasma 2021 022 [facility] (Lab), [address], [place], [address], 2 07:33:57 CBC w/ auto diff 2021 022 [facility] (Lab), [address], [place], [address], 2 07:33:55 CMP, serum or plasma 2021 022 [facility] (Lab), [address], [place], [address], 07:33:56 Referral None recorded. Procedures None recorded. Surgeries None recorded. Imaging MAMMO, screening, digital, bilateral 2024 025 [facility] (Central Scheduling), [address] [place], [address], 5 04:06:16 MAMMO, screening, bilateral [address] (Central Scheduling), [address] [place], [address], 4 10:24:09 Medication Orders estradiol 0.05 mg/24 hr semiweekly transdermal patch 2024 025 [id number], [address] [place], [address], 5 15:48:44 Prometrium 200 mg capsule 2024 025 [id number] [address] [place], [address], 5 15:48:44 estradiol 1 mg tablet 2023 024 [id number] [address] [place], [address], 5 15:45:53 progesteron e micronized 100 mg capsule 2023 024 [id number] [address] [place], [address], 5 15:45:58 estradiol 1 mg tablet 2023 024 [id number], [address] [place], [address], 5 15:45:53 Prometrium 100 mg capsule 2023 024 [id number] [address] [place], [address], 5 15:45:58 Prometrium 100 mg capsule 2021 022 [id number] [address] [place], [address], 5 15:45:58 Patient TargetsNo targets recorded. Patient InstructionsNo instructions recorded. Reason for Referral None Reported. Results Created Date Observation Date Name Description Value Unit Range Abnormal Flag Note LastModifiedBy Organization Detail LastModifiedTime 10/10/19 22 10/09/2021 CBC W/DIF F WBC 11.5 10'3/ uL 3.6-10 .2 high Not Available [facility] [address] [place], [address], 10/10/2021 07:33:55 10/10/19 22 10/09/2021 CBC W/DIF F RBC 4.77 10'6/ uL (based on docume nted legal sex) 4.10-5 .30 Not Available [facility] [address] [place], [address], 10/10/2021 07:33:55 10/10/19 22 10/09/2021 CBC W/DIF F HGB 12.5 g/dL (based on docume nted legal sex) 11.9-1 5.8 Not Available [facility] [place], [address], 10/10/2021 07:33:55 10/10/19 22 10/09/2021 CBC W/DIF F HCT 42.2 % (based on docume nted legal sex) 37.4-4 8.3 Not Available [facility] [place], [address], 10/10/2021 07:33:55 10/10/19 22 10/09/2021 CBC W/DIF F MCV 88.5 fL 82.0-9 9.0 Not Available [facility] [place], [address], 10/10/2021 07:33:55 10/10/19 22 10/09/2021 CBC W/DIF F MCH 26.2 pg 27.0-3 3.0 low Not Available [facility] [place], [address], 10/10/2021 07:33:55 10/10/19 22 10/09/2021 CBC W/DIF F MCHC 29.6 g/dL 32.0-3 6.0 low Not Available [facility] [place], [address], 10/10/2021 07:33:55 10/10/19 22 10/09/2021 CBC W/DIF F RDW 15.9 % 11.0-1 5.0 high Not Available [facility] [place], [address], 10/10/2021 07:33:55 10/10/19 22 10/09/2021 CBC W/DIF F plt 287 10'3/ uL 150-45 0 Not Available [facility] [place], [address], 10/10/2021 07:33:55 10/10/19 22 10/09/2021 CBC W/DIF F MPV 11.9 fL 9.8-12 .7 Not Available [facility] [place], [address], 10/10/2021 07:33:55 10/10/19 22 10/09/2021 CBC W/DIF F NRBC's 0.0 % 0 Not Available [facility] [place], [address], 10/10/2021 07:33:55 10/10/19 22 10/09/2021 CBC W/DIF F absolute NRBCs 0.0 10'3/ uL 0 Not Available [facility] [place], [address], 10/10/2021 07:33:55 10/10/19 22 10/09/2021 CBC W/DIF F neutrophils 59.2 % 37.0-7 2.0 Not Available [facility] [place], [address], 10/10/2021 07:33:55 10/10/19 22 10/09/2021 CBC W/DIF F lymphocytes 29.9 % 16.0-4 8.0 Not Available [facility] [place], [address], 10/10/2021 07:33:55 10/10/19 22 10/09/2021 CBC W/DIF F monocytes 8.3 % 4.0-14 .0 Not Available [facility] [address] [place], [place] [address], [address], 10/10/2021 07:33:55 10/10/19 22 10/09/2021 CBC W/DIF F eosinophils 1.2 % 0.0-9. 0 Not Available [facility] [address] [place], [place] [address], [address], 10/10/2021 07:33:55 10/10/19 22 10/09/2021 CBC W/DIF F basophils 0.8 % 0.0-2. 0 Not Available [facility] [address] [place] [address], [address], 10/10/2021 07:33:55 10/10/19 22 10/09/2021 CBC W/DIF F immature granulocytes 0.6 % no define d refere nce range Not Available [facility] [address] [place] [address], [address], 10/10/2021 07:33:55 10/10/19 22 10/09/2021 CBC W/DIF F absolute neutrophils 6.8 10'3/ uL 1.1-6. 0 high Not Available [facility] [address] [place], [place] [address], [address], 10/10/2021 07:33:55 10/10/19 22 10/09/2021 CBC W/DIF F absolute lymphocytes 3.4 10'3/ uL 0.7-3. 4 Not Available [facility] [address] [place], [place] [address], [address], 10/10/2021 07:33:55 10/10/19 22 10/09/2021 CBC W/DIF F absolute monocytes 1.0 10'3/ uL 0.3-1. 0 Not Available [facility] [place], [address], 10/10/2021 07:33:55 10/10/19 22 10/09/2021 CBC W/DIF F absolute eosinophils 0.1 10'3/ uL 0.0-0. 6 Not Available [facility] [place], [address], 10/10/2021 07:33:55 10/10/19 22 10/09/2021 CBC W/DIF F absolute basophils 0.1 10'3/ uL 0.0-0. 1 Not Available [facility] [address] [place], [place] [address], [address], 10/10/2021 07:33:55 10/10/19 22 10/09/2021 CBC W/DIF F absolute immature granulocytes 0.1 10'3/ uL 0.00-0 .10 022 5:35 AM: P indic ates parti al resul ts on a panel have been relea sed. Addit ional resul ts will follo w. 022 5:35 AM: This resul t has been final verif ied. No addit ional or samaniego ed resul ts are expec luis alfredo. Not Available [facility] [place], [address], 10/10/2021 07:33:55 10/10/19 22 10/09/2021 CMP WITH BUN/C REAT RATIO sodium 141 mmol/ L 133-14 6 Not Available [facility] [place], [address], 10/10/2021 07:33:56 10/10/19 22 10/09/2021 CMP WITH BUN/C REAT RATIO potassium 4.5 mmol/ L 3.5-5. 1 Not Available [facility] [address] [place], [place] [address], [address], 10/10/2021 07:33:56 10/10/19 22 10/09/2021 CMP WITH BUN/C REAT RATIO chloride 102 mmol/ L 98-107 Not Available [facility] [place], [address], 10/10/2021 07:33:56 10/10/19 22 10/09/2021 CMP WITH BUN/C REAT RATIO carbon dioxide 29 mmol/ L 21-31 Not Available [facility] [address] [place], [place] [address], [address], 10/10/2021 07:33:56 10/10/19 22 10/09/2021 CMP WITH BUN/C REAT RATIO anion gap 10 mmol/ L 4-13 Not Available [facility] [place], [address], 10/10/2021 07:33:56 10/10/19 22 10/09/2021 CMP WITH BUN/C REAT RATIO blood urea nitrogen 8 mg/dL 7-25 Not Available [facility] [place], [address], 10/10/2021 07:33:56 10/10/19 22 10/09/2021 CMP WITH BUN/C REAT RATIO creatinine 0.86 mg/dL 0.60-1 .30 Not Available [facility] [place], [address], 10/10/2021 07:33:56 10/10/19 22 10/09/2021 CMP WITH BUN/C REAT RATIO egfrcr (CKD-epi 2020) 80 mL/mi n/1.7 3_m2 >=60 Not Available [facility] [place], [address], 10/10/2021 07:33:56 10/10/19 22 10/09/2021 CMP WITH BUN/C REAT RATIO BUN/creatini ne ratio 9.3 . 10.0-2 2.0 low Not Available [facility] [place], [address], 10/10/2021 07:33:56 10/10/19 22 10/09/2021 CMP WITH BUN/C REAT RATIO calcium 9.1 mg/dL 8.3-10 .5 Not Available [facility] [address] [place], [place] [address], [address], 10/10/2021 07:33:56 10/10/19 22 10/09/2021 CMP WITH BUN/C REAT RATIO glucose 76 mg/dL 70-100 Not Available [facility] [address] [place], [place] [address], [address], 10/10/2021 07:33:56 10/10/19 22 10/09/2021 CMP WITH BUN/C REAT RATIO protein, total 6.9 g/dL 6.4-8. 3 Not Available [facility] [address] [place], [place] [address], [address], 10/10/2021 07:33:56 10/10/19 22 10/09/2021 CMP WITH BUN/C REAT RATIO albumin 3.6 g/dL 3.5-5. 0 Not Available [facility] [address] [place], [place] [address], [address], 10/10/2021 07:33:56 10/10/19 22 10/09/2021 CMP WITH BUN/C REAT RATIO ALT 8 units /L 9-43 low Not Available [facility] [address] [place], [place] [address], [address], 10/10/2021 07:33:56 10/10/19 22 10/09/2021 CMP WITH BUN/C REAT RATIO alkaline phosphatase 104 units /L 34-104 Not Available [address], [address], 10/10/2021 07:33:56 10/10/19 22 10/09/2021 CMP WITH BUN/C REAT RATIO AST 16 units /L 13-39 Not Available [address], [address], 10/10/2021 07:33:56 10/10/19 22 10/09/2021 CMP WITH BUN/C REAT RATIO bilirubin, total 0.3 mg/dL 0.2-1. 2 Not Available [address], [address], 10/10/2021 07:33:56 10/10/19 22 10/09/2021 TESTO STERO NE, TOTAL testosterone , total 92 NG/dL 0-100 Not Available [address], [address], 10/10/2021 07:33:56 10/10/19 22 10/09/2021 FSH, LH, ESTRA DIOL estradiol 10.4 pg/mL This assay was perfo rmed using [employer] reage nts and test kits. Value s obtai pierre with other assay metho ds or kits canno t be used inter [facility] . Femal e Estra diol Range s: Folli cular phase 12.4- 233 pg/mL Ovula tion phase 41.0- 398 pg/mL Lutea l phase 22.3- 341 pg/mL Postm enopa usal< 5-138 pg/mL Healt hy Pregn ant Women 1st Trime ster1 54-32 43 pg/mL 2nd Trime ster1 561-2 1280 pg/mL 3rd Trime ster8 525-> 94405 pg/mL Not Available [facility] [address] [place], [address], 10/10/2021 07:33:57 10/10/19 22 10/09/2021 FSH, LH, ESTRA DIOL FSH 51.7 mIU/m L This assay was perfo rmed using [employer] reage nts and test kits. Value s obtai pierre with other assay metho ds or kits canno t be used inter [facility] . Femal es Folli cular : 3.5-1 2.5 mIU/m L Ovula tion: 4.7-2 1.5 mIU/m L Lutea l: 1.7-7 .7 mIU/m L Postm enopa use: 25.8- 134.8 mIU/m L Not Available [facility] [address] [place], [address], 10/10/2021 07:33:57 10/10/19 22 10/09/2021 FSH, LH, ESTRA DIOL LH 33.5 mIU/m L This assay was perfo rmed using [employer] reage nts and test kits. Value s obtai pierre with other assay metho ds or kits canno t be used inter [facility] . Femal es Mid-F ollic ular: 2.4-1 2.6 mIU/m L Mid-C ycle: 14.0- 95.6 mIU/m L Mid-L uteal : 1.0-1 1.4 mIU/m L Postm enopa use: 7.7-5 8.5 mIU/m L Not Available [facility] [address] [place], [address], 10/10/2021 07:33:57 10/10/19 22 10/09/2021 VITAM IN D, 25-OH (TOTA L D2/D3 ) vitamin D, 25-hydroxy, total 9.5 NG/mL 30.0-1 00.0 low [place] [facility] of Defic iency : <20 ng/mL [facility] stive of Insuf ficie ncy: 20-29 ng/mL [facility] stive of Suffi cienc y: 30-10 0 ng/mL Sugge stive of Toxic ity: >150 ng/mL Not Available [facility] [address] [place], [address], 10/10/2021 07:33:57 11/21/19 22 11/20/2021 IMAGE GUIDE D PAP AND HPV REGAR DLESS image guided Pap, HPV regardless of Pap result SEE RESULT S BELOW CASE REPOR T: Cytol ogy Gynec ologi minor Repor t Case: [id number] Autho marce caceres Provi bernardo: Genaro Goldstein Colle cted: 11/20 1617 TITLE COORDINATOR Order ing Locat ion: [place] [facility] Recei collins: 11/23 0912 First Scree n: Radhika Shafer Speci men: Scregael gonzalez Pap - Image d, Cervi x STATE MENT OF ADEQU ACY: Satis facto ry for evalu ation Trans forma tion zone compo nent prese nt FINAL DIAGN OSIS: Negat lluvia for Intra epith elial Mayra paul or Tonia salas (NIL) . Elect denise meade porter d by Radhika Shafer ica on 11/26 [...] nguyen nted. Not Available [facility] [address] [place], [address], 11/26/2021 10:56:00 11/21/19 22 11/20/2021 TRICH OMONA S VAGIN ORIANA (RRNA ) trichomonas vaginalis ribosomal RNA (rrna) NEGATI VE negati ve Not Available [facility] [address] [place], [address], 11/26/2021 10:56:01 11/21/19 22 11/20/2021 CT/GC (ELVIS) , THINP REP VIAL chlamydia trachomatis, PCR NEGATI VE negati ve Not Available [facility] [address], [place], [address], 11/26/2021 10:56:01 11/21/19 22 11/20/2021 CT/GC (ELVIS) , THINP REP VIAL neisseria gonorrhoeae, PCR NEGATI VE negati ve Not Available [facility] [address] [place], [address], 11/26/2021 10:56:01 06/21/19 24 06/21/2023 IMAGE GUIDE D PAP AND HPV REGAR DLESS image guided Pap, HPV regardless of Pap result SEE RESULT S BELOW CASE REPOR T: Cytol ogy Gynec ologi minor Repor t Case: [id number] Autho marce morris Provi bernardo: Genaro Goldstein Colle cted: 06/20 1544 TITLE COORDINATOR Order ing Locat ion: [place] [facility] [place] Recei collins: 06/21 0101 First Scree n: Ángela Saenz ret, CT Rescr een: Rory Victoria, CT Speci men: Scregael vergarag Pap - Image d, Cervi x STATE MENT OF ADEQU ACY: Satis facto ry for evalu ation Trans forma tion zone compo nent prese nt Parti ally obscu ring infla mmati on prese nt. ----- ----- ----- ----- ----- ----- ----- ----- ----- ----- ----- ----- ----- ----- ----- ----- ----- ---- FINAL DIAGN OSIS: Negat lluvia for Intra epith elial Leselida paul or Tonia salas (NIL) . Elect denise meade porter d by Rory Victoira, CT on 2023 at 10:32 AM ----- [...] as clini evan nguyen nted. Not Available [facility] (Lab) [address], [place], [address], 06/27/2023 11:36:58 Result Notes None recorded. Procedures Surgical History Date Name Laterality Status Provider Name and Address Organization Details Recorded Time 4 Date of Last Pap Smear completed Missy Rigoberto [facility] 07/19/2023 14:47:05 3 Endometrial Ablation completed Lupe Jones [facility] 10/09/2021 12:39:45 Imaging Results None recorded. Procedure Notes None recorded. Medical Equipment None Reported. Allergies No known drug allergies Medications Name Sig Start Date Stop Date Status Note LastModified by Organization Details LastModified Time furosemide 40 mg tablet TAKE 1 TABLET BY MOUTH EVERY DAY 10/09 completed Not Available Not Available Not Available cetirizine 10 mg tablet TAKE 1 TABLET BY MOUTH EVERY DAY NEEDED active Not Available Not Available No t Available valacyclovi r 1 gram tablet TAKE 1 TABLET BY MOUTH TWICE A DAY FOR 10 DAYS 11/20 completed Not Available Not Available Not Available prednisone 20 mg tablet TAKE 1 TABLET EVERY DAY FOR 10 DAYS THEN 1 TABLET EVERY OTHER DAY FOR 8 DAYS 08/29 completed Not Available Not Available Not Available estradiol 0.05 mg/24 hr semiweekly transdermal patch APPLY 1 PATCH TRANSDERM ALLY TWICE A WEEK active Not Available Not Available No t Available doxepin 10 mg capsule TAKE 1 CAPSULE BY MOUTH EVERY DAY AT BEDTIME NEEDED FOR INSOMNIA active Not Available Not Available No t Available ketorolac 10 mg tablet TAKE 1 TABLET BY MOUTH EVERY 6 HOURS NEEDED FOR PAIN. 08/29 completed Not Available Not Available Not Available citalopram 20 mg tablet TAKE 1 TABLET BY MOUTH EVERY DAY 11/20 completed Not Available Not Available Not Available famotidine 20 mg tablet TAKE 1 TABLET BY MOUTH TWICE A DAY active Not Available Not Available No t Available estradiol 1 mg tablet TAKE 1 TABLET BY MOUTH EVERY DAY 08/29 completed Not Available Not Available Not Available gabapentin 800 mg tablet TAKE 1 TABLET BY MOUTH FOUR TIMES A DAY 30 DAYS active Not Available Not Available No t Available famotidine 20 mg (Dis) tablet 10/09 completed Not Available Not Available Not Available progesteron e micronized 200 mg capsule TAKE 1 CAPSULE BY MOUTH EVERY DAY active Not Available Not Available No t Available nicotine 21 mg/24 hr daily transdermal patch APPLY 1 PATCH TO SKIN TRANSDERM ALLY ONCE A DAY 06/20 completed Not Available Not Available Not Available ergocalcife rol (vitamin D2) 1,250 mcg (50,000 unit) capsule TAKE 1 CAPSULE BY MOUTH ONE TIME PER WEEK FOR 90 DAYS active Not Available Not Available No t Available ibuprofen 600 mg tablet TAKE 1 TABLET BY MOUTH UP TO 3 TIMES DAILY NEEDED WITH FOOD/MILK 08/29 completed Not Available Not Available Not Available fluticasone propionate 50 mcg/actuati on nasal spray,suspe nsion SPRAY 1 SPRAY INTO EACH NOSTRIL EVERY DAY FOR 30 DAYS 06/20 completed Not Available Not Available Not Available progesteron e micronized 100 mg capsule TAKE 1 CAPSULE BY MOUTH EVERY DAY 08/29 completed Not Available Not Available Not Available Testim 50 mg/5 gram (1 %) [...] Available duloxetine 60 mg capsule,del ayed release Take 60 mg every day by oral route. 08/29 completed Not Available Not Available Not Available Vitals Date Recorded Body height Body mass index (BMI) Body weight Systolic And Diastolic Provider Name and Address Organization Details Last Updated DateTime 06/21/2023 164.47 cm 37.6 kg/m2 313388.69 g 128/83 mm[Hg] [facility] 06/21/2023 15:25:59 Date Recorded Body height Body mass index (BMI) Body weight Systolic And Diastolic Provider Name and Address Organization Details Last Updated DateTime 07/19/2023 164.47 cm 37.7 kg/m2 632065.28 g 116/78 mm[Hg] [facility] 07/19/2023 14:46:42 Date Recorded Body height Body mass index (BMI) Body weight Systolic And Diastolic Provider Name and Address Organization Details Last Updated DateTime 08/29/2024 164.47 cm 38.4 kg/m2 728929.37 g 122/81 mm[Hg] Aide Lopez [facility] 08/29/2024 15:19:25 Date Recorded Body height Body mass index (BMI) Body weight Systolic And Diastolic Provider Name and Address Organization Details Last Updated DateTime 10/09/2021 164.47 cm 36.4 kg/m2 70965.54 g 112/74 mm[Hg] Lupe Robert [facility] 10/09/2021 12:37:32 Date Recorded Systolic And Diastolic Provider Name and Address Organization Details Last Updated DateTime 11/20/2021 110/80 mm[Hg] Sury Gannon, [facility] [address], [place], [address], [facility] 11/20/2021 17:06:03 Date Recorded Body height Body mass index (BMI) Body weight Provider Name and Address Organization Details Last Updated DateTime 11/20/2021 164.47 cm 36.4 kg/m2 12726.54 g Lupe Jones [facility] 11/20/2021 15:23:07 Social History Question Answer Notes LastModified by Organizat ion Details LastModified Time Tobacco Smoking Status Current Some Day Smoker Sury Gannon, [facility] [address], [place], [address], [facility] 06/21/2023 15:37:17 Do You Have An Advance Directive? No Information n ot available 10/09/2021 Are You Blind Or Do [...] Or The Highest Degree You Have Received? [id number] Information not available 10/09/2021 Are There Any [...] PPD Information not available 10/09/2021 Do You Use Sunscreen Routinely? No Information not available 10/09/2021 How Many Years Have You Smoked Tobacco? 40 Information not available 10/09/2021 Have You Used IV Drugs? No Information not available 10/09/2021 Do You Have Difficulty Walking Or Climbing Stairs? No Information not available 11/20/2021 Sex: Unknown Functional Status Question Answer Note LastModified by Organizat ion Details LastModified Time Do you use any illicit or recreational drugs? No Information not available 10/09/2021 What is your level of alcohol consumption? None Information not available 10/09/2021 Are you able to walk independently without assistance or assistive devices? YESLIMIT Information not available 10/09/2021 Are you able to care for yourself independently? Yes [email or web address] Information not available 11/20/2021 What is your occupation? None Information not available 10/09/2021 Do you have difficulty dressing, bathing, grooming, or toileting? No [email or web address] Information not available 11/20/2021 What is your exercise level? None Information not available 10/09/2021 Mental Status Question Answer Note LastModified by Organization D etails LastModified Time Do you feel stressed (tense, restless, nervous, or anxious, or unable to sleep at night)? [id number] Information not available 10/09/2021 Family History Relationship Description Onset Age of [...] History Statement/Question Response Date of Last Mammogram Date of LMP 02/08/2012 On BCP's at [...] Diagnosis SNOMED-CT Code Diagnosis ICD10 Code Diagnosis IMO Codes Diagnosis Note [id number] [facility] [address] [address] 10/09/2021 12:24:43 10/13/2021 16:19:47 Reduced libido [id number] R68.82 Today we discussed menopause & low libido/sex ual desire.Edouard williamson obtain updated lab work.Base line T-level Counseled on medication R/B's, Most common side effects, & use. All questions were answered to patient satisfacti on. Menopausal symptom [id number] N95.1 We discussed Menopausal Hormone therapy [...] migraine w/ visual changes, breast cancer dx, MT/stroke, DVT/PE, Endometria l cancer. Please contact office [...] colonoscop y Tobacco us e cessation education [id number] Z71.6 Encouraged smoking cessation which she is working on now. [id number] Sury Gannon , [facility] [address] [address] 11/20/2021 15:00:53 11/20/2021 17:10:31 Gynecologic examination 20394190 Z01.419 Take Calcium with Vitamin D 12-1500mg daily. Do monthly self breast exams. It is advised to get annual flu shot in the fall and she could obtain at [facility] or [facility]. If you haven't received the Tdap vaccine [...] started on Testim x 3mos med check. [id number] [facility] [address] [address] 06/21/2023 15:15:20 06/21/2023 15:47:04 Gynecologic examination 85495060 Z11.51 Z11.3 Z11.8 Take Calcium with Vitamin D 12-1500mg daily. Do monthly self breast exams. It is advised to get annual flu shot in the fall and she could obtain at [facility]. If you haven't received the Tdap vaccine [...] Screen PCPCRoutin e Labs PCP Menopausal symptom 54671 002 N95.1 We discussed Menopausal Hormone therapy [...] migraine w/ visual changes, breast cancer dx, MT/stroke, DVT/PE, Endometria l cancer. Please contact office [...] RTO x 4wk f/u. Screening mammography 24 943304 Z12.31 [id number] Sury Gannon , [facility] [address] [address] 07/19/2023 14:31:55 07/19/2023 15:07:03 Menopausal symptom [id number] N95.1 We discussed Menopausal Hormone therapy (MHT) [...] migraine w/ visual changes, breast cancer dx, MT/stroke, DVT/PE, Endometria l cancer. Please contact office [...] counseling and review of plan of care. [id number] CANDY Summers [facility] [address] [address] 08/29/2024 14:45:34 08/29/2024 15:52:57 Gynecologic examination 55348090 Z01.427 [id number] WWEpostmen opausalPap - UTD/not indicated todaySTI screen - declinedMa mmogram - order givenColon cancer screening - cologuard/ PCPDexa - n/aRoutine labs - UTD/PCPenc ouraged continue f/u with PCP on depression /anxiety medication . Counseling encouraged . Precaution s discussedR TC in 1 yr or sooner if needed Do monthly self breast exams.It is advised to get annual flu shot in the fall and she could obtain at local pharmacy. If you haven't received the Tdap vaccine in the last 10 years you should obtain one as well.Have mammogram yearly, bone density every 2-3 years and stay up to date on colon cancer screening. Engage in regular exercise. Avoid tobacco and illicit drugs. This lifestyle behavior pattern will lead to less health conditions and longer life span. If BMI greater than 25 dietary consult advised.Qu estions have been answered. Screening mammography 24 242708 Z12.31 [id number] Drug therapy finding 309 954618 Z79.890 [id number] discussed management options for VMS (hormonal vs non-hormon al)rec switching to transderma l estradiol if desires to continue HRT d/t smoking hxrx sent, r/b/a reviewed, smoking cessation encouraged Health Concerns Section Related Observation LastModified by Organization Detai ls LastModified Time None Recorded Concern Status LastModified by Organization Details LastModified Time None Recorded Advance Directives Directive N: Payers Insurance Date Sequence Insurance Name Policy Number Policy Faust Covered Member ID Faust Member ID Guarantor Name 08/29/2024 1 [facility] ON OR AFTER 08/07/20 (MEDICAID REPLACEMENT - HMO) Irma Pantoja [id number] Irma Pantoja Notes Date Note Type Note Provider Name and Address Organization Details Recorded Time 10/10/19 22 text/ht ml MenopauseReported by PatientMenopauseFor associated symptoms, patient reportsloss of libidobut reportsno abdominal pain,no pelvic pain,no abnormal bleeding,no vaginal discharge,no dysuria,no dispareunia,no changes in bowel function,no fever,no vaginal dryness,no irritability,no depression,no anxiety,no skin changes, andno changes in urination. For onset/timing, patient reports6-12 months. For quality, patient reportsnight sweats,sleep issues,hot flashes 1-3 times/day, andaffects quality of life. For severity, patient reportsmoderateandinterferes with sexual activity. For duration, patient reportsprolonged. For context, patient reportsno menses for over 1 yearandhas tried herbal remedies. For alleviating factors, patient reportsincreased rest. For aggravating factors, patient reportspoor sleep,caffeine, andstress. Sury Gannon, [facility] [address], [place], [address], [facility] 10/09/2021 15:52:27 11/21/19 22 text/ht ml Annual Chief Meteorologist Post-MenopausalReported by PatientGenitourinary symptomsFor menopausal symptoms, patient reportsno menopausal symptomsandnormal vaginal lubrication. For vaginal bleeding, patient reportshistory of menopause having occurredandno history of post menopausal bleeding. For urinary symptoms, patient reportsno hematuria,no incontinence,no nocturia, andno urinary frequency. For vulva, patient reportsno genital lesionandno vulvar atrophy. For vagina, patient reportsnormal vaginal dischargeandno vaginal atrophy.Breast symptomsFor breast, patient reportsno breast lump,no nipple discharge, andno breast pain.Psychological symptomsFor sexual complaints, patient reportsdecreased libidobut reportsno sexual complaints. For psychological symptoms, patient reportsno depressionandno anxiety.Preventative measuresFor preventive measures, patient reportsencourage regular mammograms starting age 40,encourage self breast examination,encourage regular exercise,encourage no tobacco use,needs to schedule mammogram, andhistory of recent colonoscopy. Sury Gannon [facility] [address], [place], [address], [facility] 11/20/2021 17:07:43 06/21/19 24 text/ht ml Annual Chief Meteorologist Post-MenopausalReported by PatientGenitourinary symptomsFor menopausal symptoms, patient reportshot flashesandinsomnia due to night sweatsbut reportsnormal vaginal lubrication. For vaginal bleeding, patient reportshistory of menopause having occurredandno history of post menopausal bleeding. For urinary symptoms, patient reportsno hematuria,no incontinence,no nocturia, andno urinary frequency. For vulva, patient reportsno genital lesionandno vulvar atrophy. For vagina, patient reportsnormal vaginal dischargeandno vaginal atrophy.Breast symptomsFor breast, patient reportsno breast lump,no nipple discharge, andno breast pain.Psychological symptomsFor sexual complaints, patient reportsdecreased libidobut reportsno sexual complaints. For psychological symptoms, patient reportsno depressionandno anxiety.Preventative measuresFor preventive measures, patient reportsencourage regular mammograms starting age 40,encourage self breast examination,encourage regular exercise,encourage no tobacco use,needs to schedule mammogram, andneeds to schedule colonoscopy. Sury Gannon [facility] [address], [place], [address], [facility] 06/21/2023 15:46:55 07/19/19 24 text/ht ml ROS as noted in the HPI Here today for medication check of HRT. Sury Gannon [facility] [address], [place], [address], [facility] 07/20/2023 13:48:43 08/30/19 25 text/ht ml Annual Chief Meteorologist Post-MenopausalReported by PatientGenitourinary symptomsFor menopausal symptoms, patient reportsno menopausal symptomsandnormal vaginal lubrication. For vaginal bleeding, patient reportshistory of menopause having occurredandno history of post menopausal bleeding. For urinary symptoms, patient reportsno hematuria,no incontinence,no nocturia, andno urinary frequency. For vulva, patient reportsno genital lesionandno vulvar atrophy. For vagina, patient reportsnormal vaginal dischargeandno vaginal atrophy.Breast symptomsFor breast, patient reportsno breast lump,no nipple discharge, andno breast pain.Psychological symptomsFor sexual complaints, patient reportsno sexual complaints. For psychological symptoms, patient reportsno depressionandno anxiety.Preventative measuresFor preventive measures, patient reportsencourage regular mammograms starting age 40,encourage self breast examination,encourage regular exercise, andencourage no tobacco use.58yo wwepostmenopausallast pap 06/2023 : nilm, HPV (-)mammogram 2023has cologuard kit at home on HRT (oral estradiol and prometrium) which has helped night sweats. Still having hot flashes throughout the day.She is a tobacco smoker anxiety/depression medication managed by PCP. does not do counseling Beth Carver [facility] [address], [place], [address], [facility] 08/29/2024 15:49:10 OBGyn Episode Ob Episode Information Episode Created Date Number of Fetuses Patient Bloodtype Patient rh Status Prepregnancy Weight lbs Domestic Partner Domestic Partner Phone Father Name Process Technician Status 10/10/19 22 1 CLOSED Fetus Data First Name Last Name Admitted to NICU Weight (g) Sex Living Outcome Pediatric Complications Fetus ID Race Codes Race Delivery Type M [id number] Vaginal Delivery Humberto Calculation Initial Humberto Date [...] Domestic Partner Domestic Partner Phone Father Name Process Technician Status 10/10/19 22 1 CLOSED Fetus Data First Name Last Name Admitted to NICU Weight (g) Sex Living Outcome Pediatric Complications Fetus ID Race Codes Race Delivery Type M [id number] Vaginal Delivery Humberto Calculation Initial Humberto Date [...]
--- OUTSIDE RECORDS SUMMARY | 2024-12-13 19:53 | XMS_ITS | Clinical Summary ---
Author Organization [facility] Address [address] [place] [address] Care Team Providers Care Janitorial Tech Name Role Phone None, Provider MD Primary [...] 04/19/2017 Restless legs syndrome 04/19/2017 Spina bifida 04/19/2017 Resolved Problems Problem Noted Date Diagnosed [...] Average Number of Drinks Not on file 01/02/2 019 Frequency of Binge Drinking Not on file 03/2018 PHQ-2 Answer Date Recorded PHQ-2 Score 6 01/16/2019 Education Answer Date Recorded What is the highest level of school you have completed or the highest degree you have received? Associate degree: academic program 02/08/2018 Comments No Sex and Gender Information Value Date Recorded Sex Assigned at Female 12/27/2018 1:33 PM LOW VOLTAGE ELECTRICIAN Legal Sex Female 9:23 PM CDT Gender Identity Female 12/27/2018 1:33 PM LOW VOLTAGE ELECTRICIAN Sexual Orientation Straight 12/27/2018 1: 33 PM LOW VOLTAGE ELECTRICIAN Occupation Industry Job Start Date Job End [...] Colonoscopy (10 Years) 1967 Annual Physical 10/05/1970 Hepatitis C 10/05/1985 DTaP, Tdap and Td Vaccines ( 1 - Tdap) 10/05/1986 Hepatitis B Vaccines (1 of 3 - 19+ 3-dose series) 10/05/1986 Pneumococcal Vaccine: 50+ Years (1 of 2 - PCV) 10/05/1986 Cervical Cancer Screening Pa p with HPV Testing (Age 30 to 64) Every 5 Years 10/05/1997 Zoster Vaccines (1 of 2) 10/05/2017 Mammogram Screening 12/07/2020 12/07/2018, 03/14/2018, 03/14/2018 COVID-19 Vaccine (3 - 2024-2 6 season) 2024 03/26/2021, 03/05/2021 Influenza Adult (#1) 2024 12/18/2020 Cervical Cancer Screening Pa p Smear (Age 30 to 64) Every 3 Years 06/20/2026 06/21/2023 Cervical Cancer Screening wi th HPV 06/20/2026 Hepatitis A Vaccines Aged Out No long er eligible based on patient's age to complete this topic Meningococcal B Vaccine Aged Out No l [...] 2:10 PM CDT Abnormal ultrasound of breast from Last 3 Months or Most Recently [...] cyst in the left breast since 03/17/2018. Jude Higgins MD MAMMO Final Res ult from Last 3 Months or Most Recently Relevant to Health Maintenance Insurance [employer] [address] [place] [address] Care Teams Janitorial Tech Relationship Specialty Start Date End Date None, Provider, MD PCP - General UNKNOWN PHYSICIAN SPECIALTY 04/29/24
--- OUTSIDE RECORDS SUMMARY | 2024-12-13 19:54 | XMS_ITS | Data Portability ---
Author Organization [place] [facility], Main Office Address [address] [place] [address] Assessment Encounter Date Assessment Date Assessment LastModified [...] no auth required 2023 024 [email or web address] [facility] [address] [place], [address], 09:14:23 Medication Orders None recorded. Patient TargetsNo targets recorded. Patient InstructionsNo instructions recorded. Reason for Referral None Reported. 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 Medical Equipment None [...] Available No t Available Vitals Date Recorded Heart rate Respiratory rate Provider N nayeli and Address Organization Details Last Updated DateTime 06/13/2023 72 /min 15 /min Killian Guzman MD [address] [facility], [facility] [address], [place], [address], [employer] [facility] 06/13/2023 14:25:56 Date Recorded Body weight Body mass index (BMI) Body height Body temperature Oxygen saturation Oxygen saturation in Arterial blood by Pulse oximetry Heart rate Systolic And Diastolic Provider Name and Address Organization Details Last Updated DateTime 829545. 69 g 36.2 kg/m2 167.64 cm 98 [degF] 97 % 97 % 72 /min 120/72 mm[Hg] Alyse Buchanan CMA [employer] 14:06:13 Social History Question Answer Notes LastModified by Organizat ion Details LastModified Time Tobacco Smoking Status Current Every Day Smoker [facility]lyse Buchanan [facility] 06/13/2023 14:09:46 Is Blood Transfusion Acceptable In An Emergency? Yes [email or web address] Information not available 06/13/2023 What Is Your Level Of Caffeine Consumption? None [email or web address] Information not available 06/13/2023 In The 14 Days Before Symptom Onset, Have You Had Close Contact With A Laboratory-confirm ed COVID-19 While That Case Was Ill? No [email or web address] Information n ot available 06/13/2023 In The 14 Days Before Symptom Onset, Have You Had Close Contact With A Person Who Is Under Investigation For COVID-19 While That Person Was Ill? No [email or web address] Information not available 06/13/2023 What Type Of Diet Are You Following? REGULAR [email or web address] Information n ot available 06/13/2023 What Is The Highest Grade Or Level Of School You Have Completed Or The Highest Degree You Have Received? BN53002-1 [email or web address] Information not available 06/13/2023 Do You Have A Humidifier? No [email or web address] Information not available 06/13/2023 How Many Children Do You Have? 2 [email or web address] Information not available 06/13/2023 Do You Have Any Pets? Yes 4 Cats Information not available 06/13/2023 What Is Your Relationship Status? [email or web address] Information not available 06/13/2023 Do You Use Your Seat Belt Or Car Seat Routinely? Yes [email or web address] Information not available 06/13/2023 Do You Have Smoke And Carbon Monoxide Detectors In Your Home? Yes Information not available 06/13/2023 Do You Use Sunscreen Routinely? Yes [email or web address] Information not available 06/13/2023 How Many Years Have You Smoked Tobacco? 40 [email or web address] Information not available 06/13/2023 Have You Recently Traveled Abroad? No Information not available 06/13/2023 Do You Have Any Dietary Restrictions? No [email or web address] Information not available 06/13/2023 Sex: Unknown Functional Status Question Answer Note LastModified by Organizat ion Details LastModified Time Do you use any illicit or recreational drugs? No [email or web address] Information not available 06/13/2023 What is your level of alcohol consumption? None [email or web address] Information not available 06/13/2023 Are you currently employed? No Information not available 06/13/2023 What is your exercise level? None [email or web address] Information not available 06/13/2023 Mental Status Question Answer Note LastModified by Organization D etails LastModified Time Do you feel stressed (tense, restless, nervous, or anxious, or unable to sleep at night)? [id number] [email or web address] Information not available 06/13/2023 Family History Relationship Description Onset Age of this Age Resolved Age Notes LastModified by Organization Details LastModified Time Father Malignant neoplasm of bone [email or web address] Not available 2023 10:50:50 Father Gastroesopha geal reflux disease [email or web address] Not available 2023 14:24:08 Mother Malignant neoplasm of thyroid gland [email or web address] Not available 2023 14:23:09 Mother Depressive disorder [email or web address] Not available 2023 14:24:30 Paternal Aunt Malignant neoplasm of ovary [email or web address] Not available 2023 14:23:24 Paternal Aunt Malignant neoplasm of breast [email or web address] Not available 2023 14:23:36 [...] ICD10 Code Diagnosis IMO Codes Diagnosis Note [id number] Killian Guzman MD [facility] Pulmonolo [facility] [address] [address] 06/13/2023 13:54:08 06/14/2023 08:10:04 Sleep apnea 93060222 G47.30 G47.33 G47.36 G47.61 Health Concerns Section Related Observation LastModified by Organization Detai ls LastModified Time None Recorded Concern Status LastModified by Organization Details LastModified Time None Recorded Advance Directives Directive None Recorded Payers Insurance Date Sequence Insurance Name Policy Number Policy Faust Covered Member ID Faust Member ID Guarantor Name 06/13/2023 1 [facility] ON OR AFTER 08/07/20 (MEDICAID REPLACEMENT - HMO) Irma Pantoja [id number] Luis Asirisha Pantoja Notes Date Note Type Note Provider [...] moderate chance of dozing. Killian Guzman MD [address] [place] [address], [place] [address], [place], [address], [place] [facility] [place] [employer] 06/13/2023 14:42:16 OBGyn Episode No OBEpisode recorded.
--- OUTSIDE RECORDS SUMMARY | 2024-12-13 19:54 | XMS_ITS | Encounter Summary ---
Author Organization [facility] Address [address] [place] [address] Care Team Providers Care Nca Certified Concierge Name Role Phone Jude Higgins MD Primary Care Provider [phone] Daina Lehman NP Primary Care Provider Unav ailable None, Provider Primary Care Provider Unavaila ble Encounter Details Date Type Department Care Team (Late st Contact Info) Description 05/18/2017 Abstract [facility] [address] [facility] [place] [id number] , Generic Conversion, Social History Tobacco Use Types Packs/Day Years Used Date Smoking Tobacco: Never Assessed Comments Unknown Sex and Gender Information Value Date Recorded Sex Assigned at Female 12/27/2018 1:33 PM MANDARIN CHINESE TEACHER Legal Sex Female 9:23 PM CDT Gender Identity Female 12/27/2018 1:33 PM MANDARIN CHINESE TEACHER Sexual Orientation Straight 12/27/2018 1: 33 PM MANDARIN CHINESE TEACHER documented as of this encounter Plan of Treatment Not on file documented as of this encounter Visit Diagnoses Not on filedocumented in this encounter Care Teams Nca Certified Concierge Relationship Specialty Start Date End Date Jude Higgins MD PCP - General INTERNAL MEDICINE 02/08/18 11/13/19 Daina Lehman NP PCP - General NURSE PRACTITIONER 11/14/19 03/08/21 None, Provider, PCP - General UNKNOWN PHYSICIAN SPECIALTY 04/29/24 documented as of this encounter
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
--- OUTSIDE RECORDS SUMMARY | 2024-12-13 19:54 | XMS_ITS | Clinical Summary ---
Author Organization [facility] [employer] Address [address] [place] [address] Care Team Providers Care Screw Machine Setter Name Role Phone Daina Lehman APRN-[employer] INSTRUMENT MECHANIC Primary Care Provi bernardo Bimal Lind MD Unavailable [phone] Source Comments [facility],non-owned Affiliates and Associated Physician Practices is amultiple site organization consisting of ambulatory clinics and hospital sitesin [place], [place], [place] and [place]. This disclosure is being madepursuant to the Care Everywhere program and may not contain all information available regarding this patient. Last updated 17.[facility] [employer] Allergies Active Allergy Reactions Criticality Noted Date [...] on file Legal Sex Female 6:00 AM AIR CONDITIONING SERVICE TECHNICIAN Gender Identity Not on file Sexual Orientation Not on file Last Filed Vital Signs Vital Sign Reading Time Taken Comments Blood Pressure 108/78 12/25/2019 8:34 AM AIR CONDITIONING SERVICE TECHNICIAN Pulse 80 12/25/2019 8:34 AM AIR CONDITIONING SERVICE TECHNICIAN Temperature 37.2 C (99 F) 12/25/2019 8:34 AM AIR CONDITIONING SERVICE TECHNICIAN Respiratory Rate 22 12/31/2012 1:01 PM AIR CONDITIONING SERVICE TECHNICIAN Oxygen Saturation 100% 04/18/2019 12:57 PM CDT Inhaled Oxygen Concentration - - Weight 106.1 kg (234 lb) 12/25/2019 8:34 AM AIR CONDITIONING SERVICE TECHNICIAN Height 165.1 cm (5' 5) 12/25/2019 8:34 AM AIR CONDITIONING SERVICE TECHNICIAN Body Mass Index 38.94 12/25/2019 8:34 AM AIR CONDITIONING SERVICE TECHNICIAN Plan of Treatment Health Maintenance Due Date [...] 10/05/1986 ZOSTER VACCINE (1 of 2) 10/05/2017 DEPRESSION SCREENING 02/08/2024 COVID-19 VACCINE (1 - 2023-2 5 season) 2024 INFLUENZA VACCINE (#1) 2024 12/18/2020 PAP SMEAR [...] patient's age to complete this topic [place] [address] [place] [id number] Care Teams Screw Machine Setter Relationship Specialty Start Date End Date Daina Lehman APRN-[employer] SYSTEM INSTRUMENT MECHANIC PCP - General 04/18/19 Bimal Lind MD Internal Medicine 04/18/19
== END 2024-12-13 13:02 | disposition home or self-care (01) ==
LOC: ANHNEURO 13:05
PROVIDERS: PCP Internal Medicine; Visit Provider Psychiatry & Neurology Neurology
DX: E11.9 Type 2 diabetes mellitus without complications (principal)
CPT/HCPCS: 95886; 95910